=== PATIENT | female | born 1995 | race Caucasian/White ===

== ENCOUNTER → 2018-06-30 11:31 | Outpatient (CLI) | payer BC, SELFPAY ==
[2018-06-30 17:05] LABS: HCG Qualitative, Serum Negative (Negative)
== END ==
PROVIDERS: Visit Provider Surgery
DX: Z01.818 Encounter for other preprocedural examination (principal)
CPT/HCPCS: 36415; 84703

== ENCOUNTER → 2018-08-19 15:15 | Outpatient (POV) | payer BC, SELFPAY | PROVIDERS: Visit Provider Dermatology | DX: Z00.00 Encounter for general adult medical examination without abnormal findings (principal) ==

== ENCOUNTER → 2020-04-15 08:52 | Outpatient (CLI) | payer BC, SELFPAY ==
--- NOTE | 2020-04-15 08:58 | US_ITS ---
PROCEDURE: US ABDOMEN LIMITED CLINICAL INDICATION: EPIGASTRIC PAIN COMPARISON: No exams were available for comparison FINDINGS: PANCREAS: Unremarkable. No obvious mass or abnormal fluid collection. No ductal dilatation LIVER: No focal liver lesions demonstrated. Homogeneous echogenicity. No intrahepatic biliary ductal dilatation evident. There is appropriate direction of blood flow within a non dilated portal vein RIGHT KIDNEY: Unremarkable. Normal size and echogenicity. No hydronephrosis GALLBLADDER: No gallstones are apparent. No gallbladder wall thickening, pericholecystic fluid, or biliary dilatation. There is a small polyp present measuring 4 mm. Common bile duct is normal at 4 mm. IMPRESSION: Small gallbladder wall polyp otherwise negative right upper quadrant ultrasound. Dictated by: Herminio Deleon MD 04/15/2020 16:22 Herminio Deleon MD in [place] 04/15/2020 16:22
--- NOTE | 2020-04-15 08:59 | FL_ITS ---
PROCEDURE: FL UPPER GI W AIR CLINICAL INDICATION: EPIGASTRIC PAIN COMPARISON: No exams were available for comparison TECHNIQUE: FLUOROSCOPY TIME : 1 minutes 53 seconds FINDINGS: The esophagus, stomach, and duodenum have an unremarkable appearance.There is no evidence of hiatal hernia. The stomach is well distended with barium and air and no ulcer or mass evident. No mucosal abnormalities apparent. There is normal peristalsis. The duodenal C-loop and proximal small bowel appear radiographically normal.. IMPRESSION: Normal upper GI series Dictated by: Dr. Brandon Salcedo MD 04/15/2020 12:34 Dr. Brandon Salcedo MD in [place] 04/15/2020 12:34
== END ==
PROVIDERS: PCP Family Medicine; Visit Provider Family Medicine
DX: R10.13 Epigastric pain (principal)
CPT/HCPCS: 74246; 76705

== ENCOUNTER 2020-05-27 16:52 | Emergency (ER) | payer BC, SELFPAY ==
[2020-05-27 16:59] VITALS: BP 138/90; PULSE 89; RESP 18; TEMP 36.7; O2SAT 99; BMI 24.1
--- NOTE | 2020-05-27 17:16 | HMH.EDUTC ---
[facility] [place] Disposition Clinical Impression: Exposure to COVID-19 virus Disposition: Home, Self-Care Condition on Discharge: Good Instructions: Preventing the Spread of Coronavirus Discharge Instructions Additional Instructions: Drink plenty of fluids. Take tylenol for pain or fever. Follow up with your regular doctor. GO TO THE ER FOR ANY WORSENING SYMPTOMS Referrals: Skinny Rivas MD [Primary Care Provider] - Forms: Work/School Release Time of Disposition: 17:24 Medical Decision Making - Medical Records Medical records reviewed: No: I reviewed the patient's medical records. - Иван Inquiry Pt receiving controlled substance: No Vital Signs: 05/27/20 16:59 05/27/20 17:29 Temperature 98.0 F 98.0 F Temperature Source Oral Pulse Rate 89 Pulse Rate [Radial] 89 Respiratory Rate 18 18 Blood Pressure 138/90 Blood Pressure [Right Arm] 138/90 Blood Pressure Mean [Right Arm] 106 Blood Pressure Source [Right Arm] Automatic Cuff Blood Pressure Position [Right Arm] Sitting 02 Sat by Pulse Oximetry 99 Oxygen Delivery Method Room Air [facility] [place] HPI - General Stated complaint: covid exposure Time Seen by Provider: 05/27/20 17:16 Mode of Arrival: Ambulatory Source of Information: Patient Limitations: No Limitations Description of Symptoms (Recalled from Triage Doc. by RN): covid exposure. no symptoms HEENT Symptoms (Recalled from RN notes): No Resp Symptoms (Recalled from RN notes): No Skin Symptoms (Recalled from RN notes): No MS Symptoms (Recalled from RN notes): No Functional Status (Recalled from RN notes): wnl - History of Present Illness Provider Complaint: She is here needing to be tested for covid. Her boyfriend tested positive yesteday. She denies any symptoms at this time. - Related Data Previous Rx's Medication Instructions Recorded levonorgestrel-ethinyl estradiol 1 tab PO DAILY #28 tab 10/20/19 0.1 mg-20 mcg tablet Allergies Allergy/AdvReac Type Severity Reaction Status Date / Time clindamycin [From Cleocin] Allergy Intermediate esophagitis Verified 01/11/20 13:49 - Worker's Comp Is this a Worker's Comp case?: No [facility] History - Hepatitis A Screen Drug use history?: No High risk sexual behaviors?: No History of sexually transmitted infection?: No Currently employed?: No Childcare worker?: No Do you have indoor plumbing?: Yes Do you have electricity?: Yes Attestation statement:: This patient has been screened for Hepatitis A risk factors. I have reviewed the patient's past medical history: Yes Medical History: Denies:: Cancer, Diabetes Mellitus Type 1, Diabetes Mellitus Type 2, Internal Pacemaker, MRSA, Seizures Other Medical History: Reports: Blood Transfusion Reaction Comment: S-I joint injury from cheerleading--unable to compete now--uses back brace. Corpus luteum cyst. 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 CRYOSURGERY Laterality Cases: Bilateral: Tonsillectomy Other Surgeries: Yes: Other. No: Pacemaker Amputation: No Fractures: No Comment: T & A 2004 - Social History Smoking Status: Never smoker Alcohol Intake: never Alcohol Intake Frequency:: other Substance Use Type: denies use Occupational Status: employed Housing: house Household Members: other Family Hx:: No significant family history ROS Obtained: Yes All systems reviewed & no additional complaints - Constitutional Constitutional: Reports system reviewed and no additional complaints, except as docu - Eyes Eyes: Reports system reviewed and no additional complaints, except as docu - ENT Ears, Nose, Mouth, and Throat: Reports system reviewed and no additional complaints, except as docu - Cardiovascular Cardiovascular: Reports system reviewed and no additional complaints, except as docu - Respiratory Respiratory: Yes system reviewed and no additional complaints, except as docu - Gastrointestinal Gastrointestingal: Reports: system reviewed and no additional complaints, except as do
[2020-05-27 17:29] VITALS: BP 138/90; PULSE 89; RESP 18; TEMP 36.7
== END 2020-05-27 17:29 | disposition home or self-care (01) ==
PROVIDERS: Emergency Provider Nurse Practitioner Family; PCP Family Medicine
DX: Z20.828 Contact with and (suspected) exposure to other viral communicable diseases (principal)
CPT/HCPCS: 99201; U0003

== ENCOUNTER 2020-06-08 12:39 | Emergency (ER) | payer BC, SELFPAY ==
[2020-06-08 12:52] VITALS: BP 126/84; PULSE 87; RESP 18; TEMP 36.6; O2SAT 98; BMI 23.3
--- NOTE | 2020-06-08 13:07 | HMH.EDUTC ---
[facility] [place] Clinical Impression: COVID-19 Disposition: Home, Self-Care Condition on Discharge: Good Instructions: Preventing the Spread of Coronavirus Discharge Instructions Additional Instructions: Drink plenty of fluids. Take tylenol for pain or fever. Follow up with your regular doctor. GO TO THE ER FOR ANY WORSENING SYMPTOMS Referrals: Skinny Rivas MD [Primary Care Provider] - Time of Disposition: 13:12 Medical Decision Making - Medical Records Medical records reviewed: No: I reviewed the patient's medical records. - Иван Inquiry Pt receiving controlled substance: No Vital Signs: 06/08/20 12:52 06/08/20 13:15 Temperature 97.8 F 97.8 F Temperature Source Oral Oral Pulse Rate 87 Pulse Rate [Radial] 87 Respiratory Rate 18 18 Blood Pressure 126/84 Blood Pressure [Right Arm] 126/84 Blood Pressure Mean [Right Arm] 98 Blood Pressure Source Automatic Cuff Blood Pressure Source [Right Arm] Automatic Cuff Blood Pressure Position Sitting Blood Pressure Position [Right Arm] Sitting 02 Sat by Pulse Oximetry 98 Oxygen Delivery Method Room Air Room Air - Lab Data Lab Results 06/08/20 12:50: SARS-CoV-2 (PCR) Positive [facility] [place] - General Stated complaint: repeat covid test Time Seen by Provider: 06/08/20 13:07 Mode of Arrival: Ambulatory Source of Information: Patient Limitations: No Limitations Description of Symptoms (Recalled from Triage Doc. by RN): tested positive last needs retest for work. HEENT Symptoms (Recalled from RN notes): No Resp Symptoms (Recalled from RN notes): No Skin Symptoms (Recalled from RN notes): No MS Symptoms (Recalled from RN notes): No Functional Status (Recalled from RN notes): wnl - History of Present Illness Provider Complaint: He needs to be retested for covid for his work - Related Data Previous Rx's Medication Instructions Recorded levonorgestrel-ethinyl estradiol 1 tab PO DAILY #28 tab 10/20/19 0.1 mg-20 mcg tablet Allergies Allergy/AdvReac Type Severity Reaction Status Date / Time clindamycin [From Cleocin] Allergy Intermediate esophagitis Verified 01/11/20 13:49 - Worker's Comp Is this a Worker's Comp case?: No [facility] History - Hepatitis A Screen Drug use history?: No High risk sexual behaviors?: No History of sexually transmitted infection?: No Currently employed?: No Childcare worker?: No Do you have indoor plumbing?: Yes Do you have electricity?: Yes Attestation statement:: This patient has been screened for Hepatitis A risk factors. I have reviewed the patient's past medical history: Yes Medical History: Denies:: Cancer, Diabetes Mellitus Type 1, Diabetes Mellitus Type 2, Internal Pacemaker, MRSA, Seizures Other Medical History: Reports: Blood Transfusion Reaction Comment: S-I joint injury from cheerleading--unable to compete now--uses back brace. Corpus luteum cyst. 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 CRYOSURGERY Laterality Cases: Bilateral: Tonsillectomy Other Surgeries: Yes: Other. No: Pacemaker Amputation: No Fractures: No Comment: T & A 2004 - Social History Smoking Status: Never smoker Alcohol Intake: never Alcohol Intake Frequency:: other Substance Use Type: denies use Occupational Status: employed Housing: house Household Members: other Family Hx:: No significant family history ROS Obtained: Yes All systems reviewed & no additional complaints - Constitutional Constitutional: Reports system reviewed and no additional complaints, except as docu - Eyes Eyes: Reports system reviewed and no additional complaints, except as docu - ENT Ears, Nose, Mouth, and Throat: Reports system reviewed and no additional complaints, except as docu - Cardiovascular Cardiovascular: Reports system reviewed and no additional complaints, except as docu - Respiratory Respiratory: Yes system reviewed and no additional complaints, except as docu - Gastrointestinal Gastrointestingal: R
[2020-06-08 13:15] VITALS: BP 126/84; PULSE 87; RESP 18; TEMP 36.6; O2SAT 98
[2020-06-09 14:54] LABS: Covid-19 Nasal PCR Sendout Lex POSITIVE
--- NOTE | 2020-06-09 14:58 | PC.NURSE ---
PATIENT NOTIFIED OF A SECOND POSITIVE COVID TEST
== END 2020-06-08 13:16 | disposition home or self-care (01) ==
PROVIDERS: Emergency Provider Nurse Practitioner Family; PCP Family Medicine
DX: Z02.89 Encounter for other administrative examinations (principal); U07.1 COVID-19; Z86.19 Personal history of other infectious and parasitic diseases
CPT/HCPCS: 99201; U0004

== ENCOUNTER 2020-06-13 14:33 | Emergency (ER) | payer BC, SELFPAY ==
[2020-06-13 15:15] VITALS: BP 133/81; PULSE 71; RESP 20; TEMP 37.2; O2SAT 100; BMI 22.7
--- NOTE | 2020-06-13 15:36 | HMH.EDUTC ---
[facility] [place] Disposition Clinical Impression: COVID-19 Disposition: Home, Self-Care Condition on Discharge: Good Instructions: Preventing the Spread of Coronavirus Discharge Instructions Additional Instructions: Drink plenty of fluids. Take tylenol for pain or fever. Follow up with your regular doctor. GO TO THE ER FOR ANY WORSENING SYMPTOMS Referrals: Skinny Rivas MD [Primary Care Provider] - Time of Disposition: 15:37 Medical Decision Making - Medical Records Medical records reviewed: No: I reviewed the patient's medical records. - Иван Inquiry Pt receiving controlled substance: No Vital Signs: 06/13/20 15:15 06/13/20 15:38 Temperature 99.0 F 99.0 F Temperature Source Oral Pulse Rate 71 Pulse Rate [Right Brachial] 71 Respiratory Rate 20 20 Blood Pressure 133/81 Blood Pressure [Right Arm] 133/81 Blood Pressure Mean [Right Arm] 98 Blood Pressure Source [Right Arm] Automatic Cuff Blood Pressure Position [Right Arm] Sitting 02 Sat by Pulse Oximetry 100 Oxygen Delivery Method Room Air [facility] [place] HPI - General Stated complaint: covid test Time Seen by Provider: 06/13/20 15:36 Mode of Arrival: Ambulatory Source of Information: Patient Limitations: No Limitations Description of Symptoms (Recalled from Triage Doc. by RN): PATIENT REQUESTING COVID TEST. SHE IS CURRENTLY POSITIVE AND NEEDING A NEGATIVE RESULT TO RETURN TO WORK. DENIES ANY SYMPTOMS AT THIS TIME HEENT Symptoms (Recalled from RN notes): No Resp Symptoms (Recalled from RN notes): No Skin Symptoms (Recalled from RN notes): No MS Symptoms (Recalled from RN notes): No Functional Status (Recalled from RN notes): WNL - History of Present Illness Provider Complaint: She has been positive for covid. She has not had any symptoms in several days. She needs a negative test so she can go back to work. - Related Data Previous Rx's Medication Instructions Recorded levonorgestrel-ethinyl estradiol 1 tab PO DAILY #28 tab 10/20/19 0.1 mg-20 mcg tablet Allergies Allergy/AdvReac Type Severity Reaction Status Date / Time clindamycin [From Cleocin] Allergy Intermediate esophagitis Verified 01/11/20 13:49 - Worker's Comp Is this a Worker's Comp case?: No [facility] History - Hepatitis A Screen Drug use history?: No High risk sexual behaviors?: No History of sexually transmitted infection?: No Currently employed?: No Childcare worker?: No Do you have indoor plumbing?: Yes Do you have electricity?: Yes Attestation statement:: This patient has been screened for Hepatitis A risk factors. I have reviewed the patient's past medical history: Yes Medical History: Denies:: Cancer, Diabetes Mellitus Type 1, Diabetes Mellitus Type 2, Internal Pacemaker, MRSA, Seizures Other Medical History: Reports: Blood Transfusion Reaction Comment: S-I joint injury from cheerleading--unable to compete now--uses back brace. Corpus luteum cyst. 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 CRYOSURGERY Laterality Cases: Bilateral: Tonsillectomy Other Surgeries: Yes: Other. No: Pacemaker Amputation: No Fractures: No Comment: T & A 2004 - Social History Smoking Status: Never smoker Alcohol Intake: never Alcohol Intake Frequency:: other Substance Use Type: denies use Occupational Status: other Housing: house Household Members: other Family Hx:: No significant family history ROS Obtained: Yes All systems reviewed & no additional complaints - Constitutional Constitutional: Reports system reviewed and no additional complaints, except as docu - Eyes Eyes: Reports system reviewed and no additional complaints, except as docu - ENT Ears, Nose, Mouth, and Throat: Reports system reviewed and no additional complaints, except as docu - Cardiovascular Cardiovascular: Reports system reviewed and no additional complaints, except as docu - Respiratory Respiratory: Yes system reviewed and no additional complaints, except as docu - Gastrointestinal Gastroin
[2020-06-13 15:38] VITALS: BP 133/81; PULSE 71; RESP 20; TEMP 37.2; O2SAT 100
--- NOTE | 2020-06-13 19:40 | PC.NURSE ---
PATIENT NOTIFIED OF POSITIVE COVID TEST AT THIS TIME
== END 2020-06-13 15:40 | disposition home or self-care (01) ==
PROVIDERS: Emergency Provider Nurse Practitioner Family; PCP Family Medicine
DX: U07.1 COVID-19 (principal)
CPT/HCPCS: 99201; U0003

== ENCOUNTER 2020-06-16 12:01 | Emergency (ER) | payer BC, SELFPAY ==
[2020-06-16 12:56] VITALS: BP 129/92; PULSE 78; RESP 19; TEMP 36.9; O2SAT 100; BMI 21.9
--- NOTE | 2020-06-16 13:05 | HMH.EDUTC ---
[facility] [place] Disposition Clinical Impression: Encounter for laboratory testing for COVID-19 virus Disposition: Home, Self-Care Condition on Discharge: Good Instructions: Preventing the Spread of Coronavirus Discharge Instructions Additional Instructions: *Monitor Temp, Over the counter Motrin or Tylenol as directed/as needed Tylenol every 4 hours and Motrin every 6 hours (as long as your family doctor has told you that you can take it) for fever or pain. and straight to ER if unable to lower temp less than 101.0 after medication given *Warm salt water gargles may help to soothe the throat *Throat Lozenges *Warm fluids like tea with honey may help to soothe the throat *Sleep elevated *Humidifier/Vaporizer Follow up IMMEDIATELY for new or worsening symptoms or no Noticeable improvement over the next 48-72 hours. 911 for difficulty breathing or swallowing You was tested for today for COVID19 your test result should be back in the next 24-48 hours, you may call to the [facility] later today or tomorrow to see if your test results are back and the result [phone] [facility] hours are 9am-9pm You was given a handout with instructions for Self Quarantine and Self isolation for while you wait on test results and what to do if they are positive If you are positive the Health Dept will be contacting you also Referrals: Skinny Rivas MD [Primary Care Provider] - As needed Forms: Work/School Release Time of Disposition: 13:07 Medical Decision Making - Иван Inquiry Pt receiving controlled substance: No Иван was queried for this patient: No Vital Signs: 06/16/20 12:56 Temperature 98.4 F Temperature Source Oral Pulse Rate [Radial] 78 Respiratory Rate 19 Blood Pressure [Right Arm] 129/92 H Blood Pressure Mean [Right Arm] 104 Blood Pressure Source [Right Arm] Automatic Cuff Blood Pressure Position [Right Arm] Sitting 02 Sat by Pulse Oximetry 100 Oxygen Delivery Method Room Air Orders (Tests/Meds): ORDERS Category Date Time Status Covid-19 Nasal PCR Sendout [facility] 06/16/20 12:44 Ordered [facility] [place] HPI - General Stated complaint: covid test Time Seen by Provider: 06/16/20 13:06 Mode of Arrival: Ambulatory Source of Information: Patient Limitations: No Limitations Description of Symptoms (Recalled from Triage Doc. by RN): covid test HEENT Symptoms (Recalled from RN notes): No Resp Symptoms (Recalled from RN notes): No Skin Symptoms (Recalled from RN notes): No MS Symptoms (Recalled from RN notes): No Functional Status (Recalled from RN notes): wnl - History of Present Illness Provider Complaint: Patient states that she has tested positive for COVID for the last 21 days States that she is no longer having symptoms but needs to get tested to go back to work - Related Data Previous Rx's Medication Instructions Recorded levonorgestrel-ethinyl estradiol 1 tab PO DAILY #28 tab 10/20/19 0.1 mg-20 mcg tablet Allergies Allergy/AdvReac Type Severity Reaction Status Date / Time clindamycin [From Cleocin] Allergy Intermediate esophagitis Verified 01/11/20 13:49 - Worker's Comp Is this a Worker's Comp case?: No [facility] History - Hepatitis A Screen Drug use history?: No High risk sexual behaviors?: No History of sexually transmitted infection?: No Currently employed?: No Childcare worker?: No Do you have indoor plumbing?: Yes Do you have electricity?: Yes Attestation statement:: This patient has been screened for Hepatitis A risk factors. I have reviewed the patient's past medical history: Yes Medical History: Denies:: Cancer, Diabetes Mellitus Type 1, Diabetes Mellitus Type 2, Internal Pacemaker, MRSA, Seizures Other Medical History: Reports: Blood Transfusion Reaction Comment: S-I joint injury from cheerleading--unable to compete now--uses back brace. Corpus luteum cyst. 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 CRYOSURGERY Laterality Cases: Bilateral: Tonsillectomy Other Surgeries: Yes: Other. No: Pacemak
[2020-06-16 13:31] VITALS: BP 129/92; PULSE 78; RESP 19; TEMP 36.9; O2SAT 100
[2020-06-17 09:10] LABS: Covid-19 Nasal PCR Sendout Lex Positive
== END 2020-06-16 13:32 | disposition home or self-care (01) ==
PROVIDERS: Emergency Provider Nurse Practitioner; PCP Family Medicine
DX: U07.1 COVID-19 (principal)
CPT/HCPCS: 99201; U0004

== ENCOUNTER → 2020-06-18 14:00 | Outpatient (CLI) | payer BC, SELFPAY ==
[2020-06-18 15:29] LABS: Coronavirus 19 IgG Antibody Positive (Negative); Coronavirus 19 IgM Antibody Negative (Negative)
== END ==
PROVIDERS: PCP Family Medicine; Visit Provider Family Medicine
DX: Z01.84 Encounter for antibody response examination (principal)
CPT/HCPCS: 36415; 86328

== ENCOUNTER → 2021-05-10 17:10 | Outpatient (CLI) | payer OTHER, SELFPAY | PROVIDERS: PCP Family Medicine; Visit Provider Nurse Practitioner | DX: Z20.822 Contact with and (suspected) exposure to COVID-19 (principal) | CPT/HCPCS: C9803; U0003; U0005 ==

== ENCOUNTER → 2023-01-21 11:20 | Outpatient (CLI) | payer OTHER, SELFPAY ==
[2023-01-22 10:15] LABS: Progesterone 9.5 ng/mL (.)
== END ==
PROVIDERS: PCP Family Medicine; Visit Provider Obstetrics & Gynecology
DX: N92.6 Irregular menstruation, unspecified (principal); Z32.00 Encounter for pregnancy test, result unknown
CPT/HCPCS: 84144; 84702

== ENCOUNTER → 2023-01-28 17:49 | Outpatient (CLI) | payer OTHER, SELFPAY | PROVIDERS: Visit Provider Obstetrics & Gynecology | DX: Z34.91 Encounter for supervision of normal pregnancy, unspecified, first trimester (principal); Z3A.09 9 weeks gestation of pregnancy | CPT/HCPCS: 87086 ==

== ENCOUNTER → 2023-02-19 12:26 | Outpatient (CLI) | payer OTHER, SELFPAY ==
[2023-02-19 13:01] LABS: Basophils % 0.4 % (0.1-2.0); Eosinophils # 0.3 K/mm3 (0.0-0.4); Hematocrit 37.9 % (37.0-47.0); Hemoglobin 12.5 g/dL (12.2-16.2); Lymphocytes # 1.8 K/mm3 (0.7-4.5); Lymphocytes % 19.2 % (10-50); Mean Corpuscular HGB Conc 33.1 g/dL (31.8-35.4); Mean Corpuscular Hemoglobin 28.5 pg (27.0-31.2); Mean Corpuscular Volume 86.1 fl (81-99); Monocytes # 0.3 K/mm3 (0.1-1.0); Monocytes % 2.9 % (1.7-9.3); Neutrophils # 6.8 K/mm3 (1.8-7.8); Neutrophils % 74.6 % (37.0-80.0); Platelet Count 231 K/mm3 (142-424); Red Cell Distribution Width 12.8 % (11.5-17.5); White Blood Count 9.1 K/mm3 (4.8-10.8)
[2023-02-20 12:09] LABS: HIV Screen 4th Generation wRfx Non Reactive (Non Reactive); HSV 1 IgG, Type Spec <0.91 index (0.00-0.90); HSV 2 IgG, Type Spec <0.91 index (0.00-0.90)
[2023-02-20 13:15] LABS: Rubella Antibodies, IgG <0.90 index (Immune >0.99)
[2023-03-10 13:26] LABS: Hepatitis B Surface Antigen Negative; Hepatitis C Antibody Non Reactive
[2023-03-10 13:27] LABS: Rapid Plasma Reagin Ab Titer Non Reactive
== END ==
PROVIDERS: PCP Family Medicine; Visit Provider Obstetrics & Gynecology
DX: Z34.91 Encounter for supervision of normal pregnancy, unspecified, first trimester (principal); Z3A.13 13 weeks gestation of pregnancy
CPT/HCPCS: 36415; 85025; 86593; 86695; 86703; 86762; 86790; 86850; 87340; 87380; G0432

== ENCOUNTER → 2023-04-17 14:30 | Outpatient (CLI) | payer OTHER, SELFPAY ==
--- NOTE | 2023-04-17 14:30 | US_ITS ---
PROCEDURE: US OB /MATERNAL DETAIL CLINICAL INDICATION: OB complete COMPARISON: No exams were available for comparison FINDINGS: Transabdominal sonographic images of the pelvis were obtained. Single viable intrauterine gestation. Breech position. Placenta: Posteriorplacenta grade 1. There is average amount fluid. The cervix appears satisfactory. Closed and measuring 2.44 cm in length. Complete survey performed on the submitted images as in PACS. Active fetus. Three-vessel cord with satisfactory umbilical cord insertion. 4- chamber heart noted. Aortic arch, LVOT, RVOT are normal. There is a 2.4 mm intracardiac echogenic focus. Technologist noted an arrhythmia. Survey of brain & ventricles Unremarkable. Thalamus, Choroid plexus, cerebellum, cisterna magna appear normal. Face and neck survey unremarkable. Nose, lips, profile appear normal. The nasion was not well visualized. Diaphragm and chest views unremarkable. Abdomen: Both kidneys noted. Bilateral renal pelvis dilation is noted. Measurements are 4.9 mm and 5.9 mm. Stomach and bladder noted and satisfactory. Spine: Survey of the spine satisfactory with no anomalies identified nor imaged. Upper, thoracic and lower spine appear normal. Both arms and legs noted. Amniotic Fluid: Adequate. Measurements: Average ultrasound age 20weeks 4days. Gestational Age 20weeks 4days Estimated due date by ultrasound age 0208/31/2023. Estimated weight 362g BPD = 20weeks 2days HC = 20weeks 2days AC = 20weeks 2days FL = 21weeks 1day Growth Percentile= 53 Heart Rate = 127bpm Cerebellum = 20weeks Humerus = 21weeks 5days HC/AC is 1.18 FL/BPD is 0.74 FL/AC is 0.23 IMPRESSION: 1. Viable fetus in the breech presentation with posterior placenta grade 1. 2. Anatomical scan was normal. 3. There was a small intracardiac echogenic foci. 4. The technologist noted an arrhythmia. 5. Bilateral renal pelvis dilation. 5.9 mm and 4.9 mm. 6. In nasion was not well visualized. Dictated by: Etienne Kelly MD 04/18/2023 20:50 Etienne Kelly MD in [place] 04/18/2023 20:50
== END ==
PROVIDERS: PCP Family Medicine; Visit Provider Obstetrics & Gynecology
DX: Z34.92 Encounter for supervision of normal pregnancy, unspecified, second trimester (principal); Z3A.20 20 weeks gestation of pregnancy
CPT/HCPCS: 76811

== ENCOUNTER → 2023-06-12 10:02 | Outpatient (CLI) | payer OTHER, SELFPAY ==
[2023-06-12 10:29] LABS: Basophils % 0.3 % (0.1-2.0); Eosinophils # 0.1 K/mm3 (0.0-0.4); Hematocrit 33.4 % (37.0-47.0); Hemoglobin 11.6 g/dL (12.2-16.2); Lymphocytes # 1.9 K/mm3 (0.7-4.5); Lymphocytes % 15.3 % (10-50); Mean Corpuscular HGB Conc 34.8 g/dL (31.8-35.4); Mean Corpuscular Volume 86.3 fl (81-99); Mean Platelet Volume 8.5 fl (7.4-10.4); Monocytes # 0.6 K/mm3 (0.1-1.0); Monocytes % 5.2 % (1.7-9.3); Neutrophils # 9.4 K/mm3 (1.8-7.8); Neutrophils % 78.2 % (37.0-80.0); Platelet Count 225 K/mm3 (142-424); Red Blood Count 3.87 M/mm3 (4.20-5.40); Red Cell Distribution Width 12.8 % (11.5-17.5); White Blood Count 12.1 K/mm3 (4.8-10.8)
[2023-06-12 10:48] LABS: Glucose,Fasting 85 mg/dl (74-100)
[2023-06-12 12:59] LABS: Glucose 1 Hour 118 mg/dL (74-100)
== END ==
PROVIDERS: PCP Family Medicine; Visit Provider Obstetrics & Gynecology
DX: Z34.92 Encounter for supervision of normal pregnancy, unspecified, second trimester (principal); Z3A.25 25 weeks gestation of pregnancy
CPT/HCPCS: 36415; 82951; 85025

== ENCOUNTER → 2023-07-08 23:53 | Outpatient (CLI) | payer OTHER, SELFPAY ==
[2023-07-08 18:10] LABS: Adenovirus,PCR Not Detected (NotDetected); Coronavirus 19, PCR Not Detected (NotDetected); Coronavirus 229E Not Detected (NotDetected); Coronavirus OC43 Not Detected (NotDetected); Coronovirus HKU1,PCR Not Detected (NotDetected); Human Metapneumovirus Not Detected (NotDetected); Influenza A, PCR Not Detected (NotDetected); Influenza AH1, 2009 Not Detected (NotDetected); Influenza AH1, PCR Not Detected (NotDetected); Influenza AH3,PCR Not Detected (NotDetected); Influenza B, PCR Not Detected (NotDetected); Parainfluenza 1, PCR Not Detected (NotDetected); Parainfluenza 2, PCR Not Detected (NotDetected); Parainfluenza 3, PCR Not Detected (NotDetected); Parainfluenza 4, PCR Not Detected (NotDetected); Respiratory Syncytial Virus Not Detected (NotDetected); Rhinovirus/Enterovirus Not Detected (NotDetected)
[2023-07-08 20:55] LABS: Coronavirus NL63 Detected (NotDetected)
== END ==
PROVIDERS: PCP Family Medicine; Visit Provider Student in an Organized Health Care Education/Training Program
DX: R05.9 Cough, unspecified (principal); B34.2 Coronavirus infection, unspecified
CPT/HCPCS: 87632; 87635

== ENCOUNTER 2023-07-30 14:09 | Outpatient (CLI) | payer OTHER, SELFPAY ==
[2023-07-30 14:20] VITALS: BMI 27.2
[2023-07-30 14:35] LABS: Microscopic, Urine URINE MICROSCOPIC (MICROSCOPIC)
[2023-07-30 14:37] VITALS: BP 123/80; PULSE 91; RESP 20; TEMP 36.7; O2SAT 96; BMI 29.8
[2023-07-30 14:42] LABS: Appearance,Urine CLEAR (Clear); Bilirubin,Urine Negative (Negative); Blood, Urine Negative (Negative); Color,Urine YELLOW (Yellow); Glucose,Urine (UA) Negative (Negative); Ketones,Urine TRACE (Negative); Leukocyte Esterase,Urine Negative (Negative); Nitrate,Urine Negative (Negative); Protein,Urine Negative (Negative); Urobilinogen,Urine 0.2 EU/dl (0.2)
[2023-07-30] MEDS: LACTATED RINGERS 1000ML 1,000 ML 999 ML IV (15:00)
[2023-07-30 15:02] LABS: Amorphous Sediment,Urine 1+ /lpf; Mucus,Urine 1+ /lpf
== END 2023-07-30 16:10 | disposition home or self-care (01) ==
LOC: OBOUT 14:13 → OB 14:13
PROVIDERS: PCP Family Medicine; Visit Provider Obstetrics & Gynecology
DX: Z34.93 Encounter for supervision of normal pregnancy, unspecified, third trimester (principal); Z3A.35 35 weeks gestation of pregnancy
CPT/HCPCS: 59025; 81001; 96365; G0463

== ENCOUNTER 2023-08-05 16:52 | Outpatient (CLI) | payer OTHER, SELFPAY | END 2023-08-05 23:59 | LOC: LAB.DROPOF 16:52 | PROVIDERS: PCP Obstetrics & Gynecology; Visit Provider Obstetrics & Gynecology | DX: Z34.93 Encounter for supervision of normal pregnancy, unspecified, third trimester (principal); Z3A.36 36 weeks gestation of pregnancy | CPT/HCPCS: 86403 ==

== ENCOUNTER 2023-08-19 12:51 | Outpatient (CLI) | payer OTHER, SELFPAY ==
[2023-08-19 11:15] LABS: Fetal Membrane Rupture (Rapid) Positive (Negative)
== END 2023-08-19 23:59 ==
LOC: LAB.DROPOF 08-22 12:51
PROVIDERS: PCP Obstetrics & Gynecology; Visit Provider Obstetrics & Gynecology
DX: Z34.93 Encounter for supervision of normal pregnancy, unspecified, third trimester (principal)
CPT/HCPCS: 84112

== ENCOUNTER 2023-08-19 13:37 | Inpatient (IN) | payer OTHER, SELFPAY ==
[2023-08-19 12:53] VITALS: BMI 27.7
[2023-08-19 13:23] LABS: MANUAL DIFFERENTIAL MANUAL DIFFERENTIAL (MANUAL DIFF)
[2023-08-19 13:26] LABS: Basophils % 0.3 % (0.1-2.0); Eosinophils # 0.1 K/mm3 (0.0-0.4); Eosinophils % 0.6 % (0.1-12.0); Hematocrit 32.7 % (37.0-47.0); Hemoglobin 11.1 g/dL (12.2-16.2); Lymphocytes % 15.6 % (10-50); Mean Corpuscular HGB Conc 34.1 g/dL (31.8-35.4); Mean Corpuscular Hemoglobin 26.9 pg (27.0-31.2); Mean Corpuscular Volume 78.9 fl (81-99); Mean Platelet Volume 8.7 fl (7.4-10.4); Monocytes # 0.6 K/mm3 (0.1-1.0); Monocytes % 4.5 % (1.7-9.3); Neutrophils # 10.3 K/mm3 (1.8-7.8); Neutrophils % 79.1 % (37.0-80.0); Platelet Count 244 K/mm3 (142-424); Red Blood Count 4.15 M/mm3 (4.20-5.40); Red Cell Distribution Width 13.5 % (11.5-17.5)
--- NOTE | 2023-08-19 13:42 | HMH.PHAINT1 ---
Pharmacy Intervention Comments: MEDICATION RECONCILIATION COMPLETED ON PATIENT USING EXTERNAL FILL HISTORY FROM PHARMACY. -DAVID CISNEROS, KARINAD
[2023-08-19 14:15] LABS: Microscopic, Urine URINE MICROSCOPIC (MICROSCOPIC)
[2023-08-19] MEDS: AMPICILLIN SODIUM 2 GM in 0.9 % SODIUM CHLORIDE 100 ML IV (14:42)
[2023-08-19 14:44] LABS: Appearance,Urine CLEAR (Clear); Bilirubin,Urine Negative (Negative); Blood, Urine 3+ (Negative); Color,Urine YELLOW (Yellow); Glucose,Urine (UA) Negative (Negative); Ketones,Urine Negative (Negative); Leukocyte Esterase,Urine Negative (Negative); Nitrate,Urine Negative (Negative); Protein,Urine TRACE (Negative); Urobilinogen,Urine 0.2 EU/dl (0.2)
[2023-08-19 15:11] LABS: Bacteria,Urine 3+ /lpf
[2023-08-19 15:13] LABS: Hypochromasia 1+; Lymphocytes % 12 % (10-50); Microcytosis 1+; Monocytes % 3 % (2-9); Neutrophils % 85 % (42-76); Platelet Estimate Normal; Total Cells Counted 100
[2023-08-19] MEDS: miSOPROStol 100MCG TABLET 25 MCG PO (16:15)
--- NOTE | 2023-08-19 16:36 | EXP.HP ---
History of Present Illness *Admission Date: 08/19/23 *Reason for visit:: SROM *History of present illness: She is a 28-year-old 1 para 0 at 38+1 weeks gestational age. She was seen in the office today and complained of a wet feeling in her underwear. She says that this has been going on for about a week or so. AmniSure was positive. As result of that she is admitted for delivery. A positive blood Rubella nonimmune Group B strep negative PFSH PFSH Disclaimer: The information contained in this section may have been updated after the patient was seen, as this information can be updated by other users. Medical History Dilation of renal pelvis of fetus cardiac echogenic focus, antepartum Heartburn during PROM (premature rupture of membranes) Rubella non-immune status, antepartum Surgical History No significant past surgical history Family History Diabetes Cancer Thyroid disorder Social History Smoking Status: Never smoker alcohol intake: never substance use type: denies use current occupational status: employed Travel in the last 8 weeks: None household members: other housing: house current occupational exposures/hazards: No caffeine: Yes Review of Systems Review of Systems Review of systems:: pertinent systems reviewed and negative unless documented below Meds Home Medications and Allergies Home Medications Medication Instructions Recorded Confirmed Type docosahexaenoic acid 200 mg 200 mg PO DAILY Supplement 08/19/23 08/19/23 History capsule ( DHA) famotidine 20 mg tablet (Pepcid) 20 mg PO BID Acid Reflux 08/19/23 08/19/23 History New Prescriptions to Start Prescriptions: Allergies Allergy/AdvReac Type Severity Reaction Status Date / Time clindamycin [From Cleocin] Allergy Intermediate esophagitis Verified 08/19/23 10:49 Exam Data for Last 24 hours Vital signs and Labs for Last 24 Hours: Laboratory Results - last 24 hr 08/19/23 13:10: WBC 13.0 H, RBC 4.15 L, Hgb 11.1 L, Hct 32.7 L, MCV 78.9 L, MCH 26.9 L, MCHC 34.1, RDW 13.5, Plt Count 244, MPV 8.7, Neut % (Auto) 79.1, Lymph % (Auto) 15.6, [place] % (Auto) 4.5, Eos % (Auto) 0.6, Baso % (Auto) 0.3, Neut # (Auto) 10.3 H, Lymph # (Auto) 2.0, [place] # (Auto) 0.6, Eos # (Auto) 0.1, Baso # (Auto) 0.0, Total Counted 100, Neutrophils % (Manual) 85 H, Lymphocytes % (Manual) 12, Monocytes % (Manual) 3, Platelet Estimate Normal, Hypochromasia 1+, Microcytosis 1+, Blood Type A Positive, Antibody Screen Positive 08/19/23 13:45: Urine Color Yellow, Urine Appearance Clear, Urine pH 8.0, Ur Specific [place] 1.020, Urine Protein Trace, Urine Glucose (UA) Negative, Urine Ketones Negative, Urine Blood 3+, Urine Nitrate Negative, Urine Bilirubin Negative, Urine Urobilinogen 0.2, Ur Leukocyte Esterase Negative, Urine RBC 3-5, Urine WBC 3-5, Ur Squamous Epith Cells 5-10, Urine Bacteria 3+ I & O for Last 24 hours: Intake & Output 08/17/23 08/18/23 08/19/23 08/20/23 11:59 11:59 11:59 11:59 Weight 177 lb Constitutional Constitutional: no acute distress *Routine HEENT Exam Head: Present normocephalic Eye: Present EOMI and PERRL ENT: Present mucous membranes moist *Routine Neck Exam Neck: Present supple; Absent lymphadenopathy *Routine Respiratory Exam Respiratory: Present CTA bilaterally *Routine Cardiovascular Exam Cardiovascular: Present RRR *Routine Abdominal Exam Abdominal: Present soft and normoactive bowel sounds; Absent tenderness *Routine Rectal Exam Rectal:: deferred *Routine Genitalia Exam Genitalia:: deferred *Routine Extremities Exam Extremities: Absent cyanosis, clubbing or edema *Routine Skin Exam Skin: Present warm; Absent rash *Routine Neurological Exam Neurological: Present alert and oriented X3 Assessment and Plan *Assessment and plan (1) PROM (premature rupture of membranes): Status: Acute Qualifiers: PROM onset of labor timing: onset of labor more than 24 hours following rupture PROM gestational age: full term Qualified Code(s): O42.12 - Full-term premature rupture of membranes, onset of labor more than 24 hours following rupture Category: Medical Code(s): O42.90 - Premature rupture of membranes, unspecified as to length of time between rupture and onset of labor, unspecified weeks of gestation (2) Heartburn during : Status: Acute Qualifiers: Trimester: third trimester Qualified Code(s): O26.893 - Other specified related conditions, third trimester; R12 - Heartburn Category: Medical Code(s): O26.899 - Other specified related conditions, unspecified trimester; R12 - Heartburn (3) cardiac echogenic focus, antepartum: Status: Acute Qualifiers: Fetus number: single or unspecified fetus Qualified Code(s): O35.BXX0 - Maternal care for other (suspected) abnormality and damage, cardiac anomalies, not applicable or unspecified Category: Medical Code(s): O35.BXX0 - Maternal care for other (suspected) abnormality and damage, cardiac anomalies, not applicable or unspecified (4) Dilation of renal pelvis of fetus: Status: Acute Category: Medical (5) Rubella non-immune status, antepartum: Status: Acute Category: Medical Code(s): O09.899 - Supervision of other high risk pregnancies, unspecified trimester; Z28.39 - Other underimmunization status Plan She is admitted for delivery since her AmniSure was positive and she has been leaking fluid. Since it has been greater than 24 hours since she thinks she may have started leaking we have started her on IV antibiotics. She will receive Cervidil overnight since her cervix is not favorable. We will plan a vaginal delivery.
[2023-08-19 17:30] LABS: Amphetamine/Metha Screen,Urine Negative ng/ml (<1000); Barbiturates Screen,Urine Negative ng/ml (<200); Benzodiazepines Screen,Urine Negative ng/ml (<200); Cannabinoid Screen,Urine Negative ng/ml (<50); Cocaine Screen,Urine Negative ng/ml (<300); Methadone Screen,Urine Negative ng/ml (<300); Opiate Screen,Urine Negative ng/ml (<300); Phencyclidine Screen,Urine Negative ng/ml (<25)
[2023-08-19] MEDS: AMPICILLIN SODIUM 1 GM in 0.9 % SODIUM CHLORIDE 50 ML IV ×2 (19:18→22:33)
[2023-08-20 00:17] VITALS: BP 116/75; PULSE 100; O2SAT 98; BMI 27.8
[2023-08-20] MEDS: AMPICILLIN SODIUM 1 GM in 0.9 % SODIUM CHLORIDE 50 ML IV ×4 (02:33→14:42)
[2023-08-20] MEDS: LACTATED RINGERS 1000ML 1,000 ML 500 ML IV ×2 (05:24→10:00)
[2023-08-20] MEDS: DEXTROSE 5%-LACTATED RINGERS 1,000 ML 125 ML IV ×2 (05:24→12:46)
[2023-08-20] MEDS: OXYTOCIN/RINGERS LACTATE 30 UNITS/500 ML BAG IV (05:25)
[2023-08-20 07:30] VITALS: BP 103/57; PULSE 71; RESP 16; TEMP 36.9; O2SAT 98
[2023-08-20] MEDS: ONDANSETRON 4MG/2ML VIAL 4 MG IV (11:15)
--- NOTE | 2023-08-20 11:37 | P.PNANES_ITS ---
[facility] Disclaimer: The information contained in this section may have been updated after the patient was seen, as this information can be updated by other users. Medical History Dilation of renal pelvis of fetus cardiac echogenic focus, antepartum Heartburn during PROM (premature rupture of membranes) Rubella non-immune status, antepartum Surgical History No significant past surgical history Family History Other Cancer Diabetes Thyroid disorder Social History Smoking Status: Never smoker alcohol intake: never substance use type: denies use current occupational status: employed Travel in the last 8 weeks: None household members: other housing: house current occupational exposures/hazards: No caffeine: Yes [facility] Anesthesia Checklist Patient Identification Patient Identification: Arm Band Structural Data Admitted From: Inpatient Planned Operative Procedure/s: Labor Epidural Consent for Planned Operative Procedure(s) Verified: Yes Verified Documents: Surgical Consent and History and Physical Additional verifications Anesthesia Reactions: No Hx Blood Transfusions: No Blood Transfusion Reaction: Yes Airway Assessment Dentition: Good Dentition Neurological Assessment Level of Consciousness: Awake, Alert and Appropriate Anesthesia Plan Anesthesia Risk discussed: Yes Anesthesia Plan: Verified ASA Class: II Anesthesia Type: Epidural
--- NOTE | 2023-08-20 11:42 | P.PN_ITS ---
Subjective *Date: 08/20/23 *Time: 11:42 Interval history: She is a 28-year-old 1 para 0 at 38+2 weeks gestational age. AmniSure was positive in the office. This morning contractions were stronger and she was in good spirits. A positive blood- antibody positive (previously negative on 01/2023) Rubella nonimmune Group B strep negative 1hr GTT: 118 NIPT: low risk Bedside ultrasound: Cephalic presentation 07/10/2023 ultrasound was completed at [facility] secondary to an EIF, arrhythmia, and RPD. EFW: 2143 g, 50th percentile, 4 pounds 12 ounces, AC: 78th percentile. Three-vessel cord. Normal placental insertion. Normal fluid. Appropriate anatomy. BPP: 8 out of 8. EIF again noted, mild bilateral pyelectasis again noted. No sign of hydroureter. MFM signed off at that time Exam Data for Last 24 hours Vital signs and Labs for Last 24 Hours: Temp Pulse Resp BP Pulse Ox O2 Del Method 98.4 F 71 16 103/57 L 98 Room Air 08/20/23 07:30 08/20/23 07:30 08/20/23 07:30 08/20/23 07:30 08/20/23 07:30 08/20/23 07:30 Laboratory Results - last 24 hr 08/19/23 13:10: WBC 13.0 H, RBC 4.15 L, Hgb 11.1 L, Hct 32.7 L, MCV 78.9 L, MCH 26.9 L, MCHC 34.1, RDW 13.5, Plt Count 244, MPV 8.7, Neut % (Auto) 79.1, Lymph % (Auto) 15.6, [place] % (Auto) 4.5, Eos % (Auto) 0.6, Baso % (Auto) 0.3, Neut # (Auto) 10.3 H, Lymph # (Auto) 2.0, [place] # (Auto) 0.6, Eos # (Auto) 0.1, Baso # (Auto) 0.0, Total Counted 100, Neutrophils % (Manual) 85 H, Lymphocytes % (Manual) 12, Monocytes % (Manual) 3, Platelet Estimate Normal, Hypochromasia 1+, Microcytosis 1+, Blood Type A Positive, Antibody Screen Positive 08/19/23 13:45: Urine Color Yellow, Urine Appearance Clear, Urine pH 8.0, Ur Specific [place] 1.020, Urine Protein Trace, Urine Glucose (UA) Negative, Urine Ketones Negative, Urine Blood 3+, Urine Nitrate Negative, Urine Bilirubin Negative, Urine Urobilinogen 0.2, Ur Leukocyte Esterase Negative, Urine RBC 3-5, Urine WBC 3-5, Ur Squamous Epith Cells 5-10, Urine Bacteria 3+, Urine Opiates Screen Negative, Urine Methadone Screen Negative, Ur Barbituates Screen Negative, Ur Phencyclidine Scrn Negative, Ur Amphetamines Screen Negative, U Benzodiazepines Scrn Negative, Urine Cocaine Screen Negative, U Marijuana (THC) Screen Negative I & O for Last 24 hours: Intake & Output 08/17/23 08/18/23 08/19/23 08/20/23 23:59 23:59 23:59 23:59 Weight 177 lb 177 lb 0.005 oz Narrative: Exam at approximately 10 AM this mornin/90 with a suspected intact forebag. AROM revealed scant amount of clear fluid. Constitutional Constitutional: no acute distress *Routine HEENT Exam Head: Present normocephalic Eye: Present EOMI and PERRL ENT: Present mucous membranes moist *Routine Neck Exam Neck: Present supple; Absent lymphadenopathy *Routine Respiratory Exam Respiratory: Present CTA bilaterally *Routine Cardiovascular Exam Cardiovascular: Present RRR *Routine Abdominal Exam Abdominal: Present soft and normoactive bowel sounds; Absent tenderness *Routine Extremities Exam Extremities: Absent cyanosis, clubbing or edema *Routine Skin Exam Skin: Present warm; Absent rash *Routine Neurological Exam Neurological: Present alert and oriented X3 Assessment and Plan *Assessment and plan (1) PROM (premature rupture of membranes): Status: Acute Qualifiers: PROM onset of labor timing: onset of labor more than 24 hours following rupture PROM gestational age: full term Qualified Code(s): O42.12 - Full-term premature rupture of membranes, onset of labor more than 24 hours following rupture Category: Medical Code(s): O42.90 - Premature rupture of membranes, unspecified as to length of time between rupture and onset of labor, unspecified weeks of gestation (2) Heartburn during : Status: Acute Qualifiers: Trimester: third trimester Qualified Code(s): O26.893 - Other specified related conditions, third trimester; R12 - Heartburn Category: Medical Code(s): O26.899 - Other specified related conditions, unspecified trimester; R12 - Heartburn (3) cardiac echogenic focus, antepartum: Status: Acute Qualifiers: Fetus number: single or unspecified fetus Qualified Code(s): O35.BXX0 - Maternal care for other (suspected) abnormality and damage, cardiac anomalies, not applicable or unspecified Category: Medical Code(s): O35.BXX0 - Maternal care for other (suspected) abnormality and damage, cardiac anomalies, not applicable or unspecified (4) Dilation of renal pelvis of fetus: Status: Acute Category: Medical (5) Rubella non-immune status, antepartum: Status: Acute Category: Medical Code(s): O09.899 - Supervision of other high risk pregnancies, unspecified trimester; Z28.39 - Other underimmunization status (6) : Status: Acute Qualifiers: Weeks of gestation: 37 weeks Qualified Code(s): Z3A.37 - 37 weeks gestation of Category: Medical Code(s): Z34.90 - Encounter for supervision of normal , unspecified, unspecified trimester Plan - Monitor vitals - Admit to L&D for induction of labor, labor monitoring, and delivery - S/P one dose 25mcg PO cytotec with pitocin per protocol this morning - External FHR and TOCO monitor - GBS-/ Blood type: A+, antibody positive - Hemoglobin: 11.1, Plt: 244 - Plan for epidural - Anticipate vaginal delivery of [place] Gender!!! Male: Michael Marie. Female: Patricia Rodriguez
[2023-08-20] MEDS: METHYLERGONOVINE MALEATE 0.2MG/ML INJ 0.200000000000000011 MG IM (17:00)
[2023-08-20] MEDS: OXYTOCIN/RINGERS LACTATE 30 UNITS/500 ML BAG 999 UNITS IV (17:00)
[2023-08-20 17:15] LABS: Cord Blood PH 7.36 (7.35-7.45)
[2023-08-20] MEDS: OXYTOCIN/RINGERS LACTATE 30 UNITS/500 ML BAG 40 UNITS IV (17:16)
[2023-08-20 17:20] LABS: Cord Blood PH 7.24 (7.35-7.45)
--- NOTE | 2023-08-20 17:38 | EXP.DN ---
Delivery Note Delivery Date:: 08/20/23 Delivery Time:: 16:53 Anesthesia Type: Epidural Was labor medically induced?: Yes Induction method: per pitocin protocol Gestational age (weeks): 38 delivered prior to 39 weeks?: Yes Justification for early elective delivery:: Active Labor and Premature ROM Infant Gender: Male at 1 minute: 6 at 5 minutes: 7 LAC or MLE?: LAC Delivery Procedure:: Preoperative diagnosis: 1. at 38 completed this weeks gestation, vertex 2. Rh positive, antibody positive 3. GBS negative 4. Rubella nonimmune 5. Premature rupture membranes 6. Prenatally detected bilateral pyelectasis and an EIF within normal NIFT Postoperative diagnosis: 1. at 38 completed this weeks gestation, vertex 2. Rh positive, antibody positive 3. GBS negative 4. Rubella nonimmune 5. Premature rupture membranes 6. Prenatally detected bilateral pyelectasis and an EIF within normal NIFT EBL: 350mL Specimen: 1. Cord blood 2. Arterial and venous cord gas Findings: 1. Liveborn viable male : Alistair Marie. Apgars 6/7 at 1 and 5 minutes respectively. Weight: 7 pounds 8 ounces 2. 2nd degree midline perineal laceration Complications: None Procedure: Nonoperative spontaneous vaginal delivery Katrina Lieberman is a 28-year-old 1 para 0 at 38+2 weeks gestational age. She was sent to labor and delivery for induction after her AmniSure was positive in the office. This morning contractions were stronger and she was in good spirits. She received 1 dose of Cytotec and then Pitocin was started. Later in the morning and a forebag was noted and ruptured, clear fluid. She received an epidural for anesthesia. She progressed to complete. FHT were reassuring throughout labor. During pushing the patient had variable decelerations with contractions. They recovered to baseline with good variability in between contractions. The infant was noted to be in SANAM position. With effective maternal pushing there was a nonoperative spontaneous vaginal delivery. There was a nuchal cord x1 that was reduced without difficulty. The anterior right shoulder delivered, followed by the posterior shoulder without dystocia. There was a compound presentation with a posterior arm. The body and lower extremities delivered without difficulty. The infant was bulb suctioned and was crying immediately following delivery. The was placed on the maternal abdomen and greater than one minute was appreciated for delayed cord clamping. The umbilical cord was doubly clamped and cut. Cord blood was collected and sent for routine testing. The placenta delivered with cord traction and suprapubic contertraction. Pitocin was started and the placenta and cord were inspected. The uterus was boggy and there was a moderate amount of bleeding. Methergine was administered. Fundal massage was continued and the uterus began to have adequate tone. The perineum, vaginal ng, cervix, and paraurethral area were inspected thoroughly. There was a second-degree midline perineal laceration. The laceration was repaired in the usual fashion using 2-0 Vicryl suture. The laceration was hemostatic. The bilateral labial abrasions that were hemostatic and not repaired. The cervix and vaginal ng were inspected and noted to be hemostatic. This concluded the delivery. The patient was counseled regarding the events of the delivery and repair. The patient tolerated the delivery well. All counts were correct by nursing. Mother and were doing well and bonding upon my leaving the delivery room. Laceration:: vaginal Placental Delivery Description: Spontaneous
[2023-08-20] MEDS: IBUPROFEN 400 MG TABLET 800 MG PO (20:28)
[2023-08-20] MEDS: ACETAMINOPHEN 500MG TAB 1000 MG PO (20:28)
[2023-08-20 20:35] LABS: Basophils % 0.1 % (0.1-2.0); Eosinophils % 0.3 % (0.1-12.0); Hematocrit 30.8 % (37.0-47.0); Hemoglobin 10.5 g/dL (12.2-16.2); Lymphocytes # 1.3 K/mm3 (0.7-4.5); Lymphocytes % 8.1 % (10-50); Mean Corpuscular HGB Conc 34.1 g/dL (31.8-35.4); Mean Corpuscular Hemoglobin 27.1 pg (27.0-31.2); Mean Corpuscular Volume 79.4 fl (81-99); Monocytes # 0.6 K/mm3 (0.1-1.0); Monocytes % 3.9 % (1.7-9.3); Neutrophils # 13.8 K/mm3 (1.8-7.8); Neutrophils % 87.6 % (37.0-80.0); Platelet Count 203 K/mm3 (142-424); Red Blood Count 3.88 M/mm3 (4.20-5.40); Red Cell Distribution Width 13.3 % (11.5-17.5); White Blood Count 15.7 K/mm3 (4.8-10.8)
[2023-08-20 20:38] LABS: MANUAL DIFFERENTIAL MANUAL DIFFERENTIAL (MANUAL DIFF)
[2023-08-20 20:52] LABS: Lymphocytes % 7 % (10-50); Microcytosis 1+; Monocytes % 6 % (2-9); Neutrophils % 87 % (42-76); Platelet Estimate Normal; Total Cells Counted 100
[2023-08-21] MEDS: SENNA 8.6MG TABLET 8.59999999999999964 MG PO ×2 (00:07→21:20)
[2023-08-21] MEDS: BENZOCAINE-MENTHOL SPRAY 56GM CAN TP (00:37)
[2023-08-21] MEDS: WITCH HAZEL 40 PADS/BOX 1 EACH TP (00:38)
[2023-08-21] MEDS: ACETAMINOPHEN 500MG TAB 1000 MG PO ×4 (02:19→22:40)
[2023-08-21] MEDS: IBUPROFEN 400 MG TABLET 800 MG PO ×3 (04:27→21:18)
[2023-08-21 06:39] LABS: Basophils % 0.2 % (0.1-2.0); Eosinophils # 0.1 K/mm3 (0.0-0.4); Eosinophils % 0.7 % (0.1-12.0); Hematocrit 27.5 % (37.0-47.0); Hemoglobin 9.5 g/dL (12.2-16.2); Lymphocytes # 2.4 K/mm3 (0.7-4.5); Lymphocytes % 20.5 % (10-50); Mean Corpuscular HGB Conc 34.5 g/dL (31.8-35.4); Mean Corpuscular Hemoglobin 27.6 pg (27.0-31.2); Mean Corpuscular Volume 79.9 fl (81-99); Monocytes # 0.7 K/mm3 (0.1-1.0); Neutrophils # 8.5 K/mm3 (1.8-7.8); Neutrophils % 72.5 % (37.0-80.0); Platelet Count 193 K/mm3 (142-424); Red Blood Count 3.44 M/mm3 (4.20-5.40); Red Cell Distribution Width 13.5 % (11.5-17.5); White Blood Count 11.7 K/mm3 (4.8-10.8)
[2023-08-21 07:41] VITALS: BP 111/69; PULSE 84; RESP 16; TEMP 36.7; O2SAT 99
--- NOTE | 2023-08-21 08:34 | P.PN_ITS ---
Subjective *Date: 08/21/23 *Time: 08:34 Interval history: PPD # 1 s/p Feeling well. Pain controlled. Breast feeding. Appropriate lochia. Voiding without difficulty and passing flatus. Tolerating regular diet. Denies fever/chills, chest pain and shortness of breath. No headaches, vision changes, dizziness/lightheadedness. No swelling. Ambulating well ad shon. Medical Exam Vital signs and Labs for Last 24 Hours: Vital Signs Temp Pulse Resp BP Pulse Ox O2 Del Method 08/21/23 07:41 98.0 F 84 16 111/69 99 Room Air Laboratory Results - last 24 hr 08/19/23 13:10: Antibody Identification See Comments 08/20/23 17:11: Cord ABG pH 7.36 08/20/23 17:16: Cord ABG pH 7.24 L* 08/20/23 20:30: WBC 15.7 H, RBC 3.88 L, Hgb 10.5 L, Hct 30.8 L, MCV 79.4 L, MCH 27.1, MCHC 34.1, RDW 13.3, Plt Count 203, MPV 9.0, Neut % (Auto) 87.6 H, Lymph % (Auto) 8.1 L, [place] % (Auto) 3.9, Eos % (Auto) 0.3, Baso % (Auto) 0.1, Neut # (Auto) 13.8 H, Lymph # (Auto) 1.3, [place] # (Auto) 0.6, Eos # (Auto) 0.0, Baso # (Auto) 0.0, Total Counted 100, Neutrophils % (Manual) 87 H, Lymphocytes % (Manual) 7 L, Monocytes % (Manual) 6, Platelet Estimate Normal, Microcytosis 1+ 08/21/23 05:17: WBC 11.7 H D, RBC 3.44 L, Hgb 9.5 L, Hct 27.5 L, MCV 79.9 L, MCH 27.6, MCHC 34.5, RDW 13.5, Plt Count 193, MPV 9.0, Neut % (Auto) 72.5, Lymph % (Auto) 20.5, [place] % (Auto) 6.0, Eos % (Auto) 0.7, Baso % (Auto) 0.2, Neut # (Auto) 8.5 H, Lymph # (Auto) 2.4, [place] # (Auto) 0.7, Eos # (Auto) 0.1, Baso # (Auto) 0.0 I & O for Labs for Last 24 Hours: Intake & Output 08/18/23 08/19/23 08/20/23 08/21/23 23:59 23:59 23:59 23:59 Weight 177 lb 177 lb 0.005 oz Microbiology Reports for the Last 24 Hours: Microbiology 08/19/23 13:45 Urine,Clean Catch Urine Culture - Final Head: Present atraumatic and normocephalic ENT: Present normal exam and mucous membranes moist Neck: Present full ROM Respiratory: Present CTA bilaterally and normal respiratory effort Cardiac: Present Reg Rate and Rhythm GI: Present soft; Absent distention or tenderness Comments:: Uterine fundus firm and below umbilicus Rectal (female): Present deferred (female): Present deferred Extremities: Present normal inspection and full ROM Neuro: Present alert, awake and moves all extremities Assessment and Plan *Assessment and plan (1) Status post normal vaginal delivery: Status: Acute Category: Medical (2) 38 weeks gestation of : Status: Acute Category: Medical Code(s): Z3A.38 - 38 weeks gestation of (3) PROM (premature rupture of membranes): Status: Acute Qualifiers: PROM onset of labor timing: onset of labor more than 24 hours following rupture PROM gestational age: full term Qualified Code(s): O42.12 - Full-term premature rupture of membranes, onset of labor more than 24 hours following rupture Category: Medical Code(s): O42.90 - Premature rupture of membranes, unspecified as to length of time between rupture and onset of labor, unspecified weeks of gestation (4) cardiac echogenic focus, antepartum: Status: Acute Qualifiers: Fetus number: single or unspecified fetus Qualified Code(s): O35.BXX0 - Maternal care for other (suspected) abnormality and damage, cardiac anomalies, not applicable or unspecified Category: Medical Code(s): O35.BXX0 - Maternal care for other (suspected) abnormality and damage, cardiac anomalies, not applicable or unspecified (5) Dilation of renal pelvis of fetus: Status: Acute Category: Medical (6) Rubella non-immune status, antepartum: Status: Acute Category: Medical Code(s): O09.899 - Supervision of other high risk pregnancies, unspecified trimester; Z28.39 - Other underimmunization status (7) Acute blood loss anemia: Status: Acute Category: Medical Code(s): D62 - Acute posthemorrhagic anemia Plan Continue routine care Encouraged increased ambulation Ferrous sulfate 325 mg PO daily Plan d/c home tomorrow
[2023-08-21] MEDS: FERROUS SULFATE 325MG TABLET 325 MG PO (09:16)
[2023-08-21] MEDS: PRENATAL MULTIVITAMIN W/IRON 1 EACH PO (16:34)
[2023-08-22 04:11] VITALS: BP 104/68; PULSE 80; RESP 20; TEMP 36.8; O2SAT 97
[2023-08-22 08:35] VITALS: BP 105/64; PULSE 91; RESP 18; TEMP 36.9; O2SAT 98
[2023-08-22] MEDS: SENNA 8.6MG TABLET 8.59999999999999964 MG PO (08:43)
[2023-08-22] MEDS: FERROUS SULFATE 325MG TABLET 325 MG PO (08:43)
[2023-08-22] MEDS: IBUPROFEN 400 MG TABLET 800 MG PO (08:43)
[2023-08-22] MEDS: ACETAMINOPHEN 500MG TAB 1000 MG PO (08:44)
--- NOTE | 2023-08-22 11:01 | P.DS_ITS ---
General Admission date:: 08/19/23 Discharge date: 08/22/23 HPI HPI HPI: PPD # 2 s/p Feeling well. Pain controlled. Breast feeding. Light lochia. Voiding without difficulty and passing flatus. Tolerating regular diet. Denies fever/chills, chest pain and shortness of breath. No headaches, vision changes, dizziness/lightheadedness. No swelling. Ambulating well ad shon. Hospital Course Hospital Course Hospital Course: Mrs Katrina Lieberman is a 28 yo at 38w1d admitted to [facility] Labor and Delivery for premature rupture of membranes. She was seen in the office 08/19/23 and complained of a wet feeling in her underwear. She reported this had been going on for about a week or so. AmniSure was positive. She was admitted to L&D for labor augmentation and antibiotics for unknown length of time of rupture. GBS negative. She underwent labor augmentation with Cervidil followed by Cytotec 25 mcg and Pitocin. She had a normal spontaneous vaginal delivery on 08/20/23 at 1653. She delivered a live male baby, Michael Marie, weighing 7 lb 8 oz. APGARs 6 (1 min), 7 (5 min). EBL 350 mL. She did well . Pain controlled. Breast feeding. Appropriate lochia. Voiding without difficulty and passing flatus. Tolerating regular diet. No fever/chills, chest pain and shortness of breath. No headaches, vision changes, dizziness/lightheadedness. No swelling. Vital signs stable, afebrile. Heart regular rate and rhythm. Lungs clear to auscultation. Abdomen soft, nontender. No lower extremity edema. No calf pain. Ambulating well ad shon. Discharged home on PPD # 2 doing well with instructions to follow-up in the office in 2 weeks or sooner if needed. Exam Data for Last 24 hours Vital signs and Labs for Last 24 Hours: Temp Pulse Resp BP Pulse Ox O2 Del Method 98.4 F 91 H 18 105/64 L 98 Room Air 08/22/23 08:35 08/22/23 08:35 08/22/23 08:35 08/22/23 08:35 08/22/23 08:35 08/22/23 08:35 I & O for Last 24 hours: Intake & Output 01/08/20/23 08/21/23 08/22/23 23:59 23:59 23:59 23:59 Weight 177 lb 177 lb 0.005 oz Microbiology Reports for the Last 24 Hours: Microbiology 08/19/23 13:45 Urine,Clean Catch Urine Culture - Final Constitutional Constitutional: no acute distress and cooperative *Routine HEENT Exam Head: Present normocephalic and atraumatic Eye: Absent conjunctivae pink ENT: Present mucous membranes moist *Routine Neck Exam Neck: Present full ROM *Routine Respiratory Exam Respiratory: Present CTA bilaterally and normal respiratory effort *Routine Cardiovascular Exam Cardiovascular: Present RRR *Routine Abdominal Exam Abdominal: Present soft; Absent tenderness or distended Comments: Uterine fundus firm and below umbilicus *Routine Rectal Exam Patient deferred: visual exam *Routine Exam Patient deferred: external exam *Routine Extremities Exam Extremities: Present full ROM; Absent edema or calf tenderness *Routine Neurological Exam Neurological: Present alert, moving all extremities and normal speech Routine Psychiatric Exam Psychiatric: Present normal affect and cooperative DS: Diagnosis Discharge Diagnosis (1) Status post normal vaginal delivery: Status: Acute (2) 38 weeks gestation of : Status: Acute Code(s): Z3A.38 - 38 weeks gestation of (3) PROM (premature rupture of membranes): Status: Acute Code(s): O42.90 - Premature rupture of membranes, unspecified as to length of time between rupture and onset of labor, unspecified weeks of gestation Qualifiers: PROM gestational age: full term PROM onset of labor timing: onset of labor more than 24 hours following rupture Qualified Code(s): O42.12 - Full- term premature rupture of membranes, onset of labor more than 24 hours following rupture (4) cardiac echogenic focus, antepartum: Status: Acute Code(s): O35.BXX0 - Maternal care for other (suspected) abnormality and damage, cardiac anomalies, not applicable or unspecified Qualifiers: Fetus number: single or unspecified fetus Qualified Code(s): O35.BXX0 - Maternal care for other (suspected) abnormality and damage, cardiac anomalies, not applicable or unspecified (5) Dilation of renal pelvis of fetus: Status: Acute (6) Rubella non-immune status, antepartum: Status: Acute Code(s): O09.899 - Supervision of other high risk pregnancies, unspecified trimester; Z28.39 - Other underimmunization status (7) Acute blood loss anemia: Status: Acute Code(s): D62 - Acute posthemorrhagic anemia Meds Home Medications and Allergies Home Medications Medication Instructions Recorded Confirmed Type docosahexaenoic acid 200 mg 200 mg PO DAILY Supplement 08/19/23 08/19/23 History capsule ( DHA) famotidine 20 mg tablet (Pepcid) 20 mg PO BID Acid Reflux 08/19/23 08/19/23 History ibuprofen 800 mg tablet 800 mg PO Q8H PRN pain #20 tabs 08/22/23 Rx New Prescriptions to Start Prescriptions: Suzy Pimentel Allergies Allergy/AdvReac Type Severity Reaction Status Date / Time clindamycin [From Cleocin] Allergy Intermediate esophagitis Verified 08/19/23 10:49 Discharge Plan Disposition Patient Disposition: Home, Self-Care Condition: Good Discharge Order Discharge Orders: Discharge Order (Routine); Ordered 08/22/23 Ordered By: Suzy Patel Follow up Plan Follow up with: Suzy Patel DO [Staff Physician] - 09/04/23 2:45 pm Prescriptions/Medication Reconciliation: New ibuprofen 800 mg tablet 800 mg PO Q8H PRN (Reason: pain) Qty: 20 0RF Continued famotidine [Pepcid] 20 mg tablet 20 mg PO BID DHA 200 mg capsule 200 mg PO DAILY Problem Reconciliation Problems Reviewed?: Yes Patient Discharge Instructions ACTIVITY: Limited activity DIET: continue same diet and regular diet Additional Instructions: Discharge: 1. Take 800 mg Ibuprofen every 8 hours as needed for pain. You can also take 500-1000 mg of Tylenol in between doses, every 6-8 hours. 2. Nothing in the vagina for 6 weeks - no intercourse, douching or tampons. No tub baths/hot tubs or swimming pools 3. Reasons to return to L&D or call On-Call doctor - fever (greater than 100.4) - heavy vaginal bleeding (soaking through 1 pad in less than 2 hours) - vaginal discharge (malodorous and/or purulent) - severe headaches not resolved by medication or rest and leg tenderness/edema 4. depression/blues - Normal to feel anxious/overwhelmed for first 2 weeks - Talk to your doctor if: severe anxiety, trouble bonding with baby, withdrawing from other family members, thoughts of harming yourself or others Suzy Patel DO [facility] [phone] Patient Instructions: Depression, Hemorrhage, DI for Labor and Delivery, Vaginal , DI for Pre-eclampsia, [facility] Post Discharge Instructions Providers Primary Care Provider: Skinny Rivas Admit Provider: Etienne Kelly Attending Provider: Etienne Kelly
== END 2023-08-22 13:34 | disposition home or self-care (01) | DRG 806 ==
LOC: OBOUT 13:38 → OB 13:38
PROVIDERS: Obstetrics & Gynecology; Admitting Provider Nurse Practitioner Obstetrics & Gynecology; PCP Family Medicine; Visit Provider Nurse Practitioner Obstetrics & Gynecology
DX: O42.12 Full-term premature rupture of membranes, onset of labor more than 24 hours following rupture (principal); D62 Acute posthemorrhagic anemia; Z37.0 Single live birth; Z3A.38 38 weeks gestation of pregnancy; O70.1 Second degree perineal laceration during delivery; O69.81X0 Labor and delivery complicated by cord around neck, without compression, not applicable or unspecified; O90.81 Anemia of the puerperium
CPT/HCPCS: 59409; 36415; 59025; 80307; 81001; 82800; 84112; 85007; 85014; 85018; 85025; 85048; 85049; 86850; 86870; 87086; 94761; G0283; J0290; J2405

== ENCOUNTER 2024-07-24 12:38 | Outpatient (CLI) | payer BC, SELFPAY ==
[2024-07-24 17:57] LABS: Coronavirus 19, PCR Not Detected (NotDetected); Human Rhinovirus Not Detected (NotDetected); Influenza B, PCR Not Detected (NotDetected); Respiratory Syncytial Virus Not Detected (NotDetected)
[2024-07-25 01:07] LABS: Influenza A, PCR Detected (NotDetected)
== END 2024-07-24 23:59 | disposition home or self-care (01) ==
LOC: LAB.DROPOF 07-27 12:39
PROVIDERS: PCP Student in an Organized Health Care Education/Training Program; Visit Provider Student in an Organized Health Care Education/Training Program
DX: R05.9 Cough, unspecified (principal); J09.X9 Influenza due to identified novel influenza A virus with other manifestations
CPT/HCPCS: 87631

== ENCOUNTER 2024-08-27 11:57 | Outpatient (CLI) | payer BC, SELFPAY ==
[2024-08-27 13:26] LABS: HCG,Quantitative 27668 mIU/ml (0-5.42)
[2024-08-28 08:21] LABS: Progesterone 7.1 ng/mL (.)
== END 2024-08-27 23:59 | disposition home or self-care (01) ==
LOC: LAB 11:59
PROVIDERS: PCP Family Medicine; Visit Provider Obstetrics & Gynecology
DX: Z32.01 Encounter for pregnancy test, result positive (principal)
CPT/HCPCS: 36415; 84144; 84702

== ENCOUNTER 2024-09-02 16:33 | Outpatient (CLI) | payer BC, SELFPAY | END 2024-09-02 23:59 | disposition home or self-care (01) | LOC: LAB.DROPOF 16:33 | PROVIDERS: PCP Obstetrics & Gynecology; Visit Provider Obstetrics & Gynecology | DX: Z34.01 Encounter for supervision of normal first pregnancy, first trimester (principal) | CPT/HCPCS: 87086 ==

== ENCOUNTER 2024-09-17 12:35 | Outpatient (CLI) | payer BC, SELFPAY ==
[2024-09-17 13:12] LABS: Eosinophils # 0.1 K/mm3 (0.0-0.4); Eosinophils % 0.6 % (0.1-12.0); Lymphocytes # 1.7 K/mm3 (0.7-4.5); Monocytes # 0.5 K/mm3 (0.1-1.0)
[2024-09-17 14:07] LABS: Ferritin 17.1 ng/ml (6.24-137)
[2024-09-17 14:14] LABS: HIV Combo NEGATIVE (Negative)
[2024-09-17 14:21] LABS: Hepatitis C Ab Qual. W/ RFX NEGATIVE (Negative)
[2024-09-17 14:26] LABS: Basophils % 0.4 % (0.1-2.0); Hematocrit 38.2 % (37.0-47.0); Mean Corpuscular Hemoglobin 28.6 pg (27.0-31.2); Mean Corpuscular Volume 84.1 fl (81-99); Monocytes % 5.2 % (1.7-9.3); Neutrophils # 7.1 K/mm3 (1.8-7.8); Neutrophils % 75.5 % (37.0-80.0); Platelet Count 262 K/mm3 (142-424); Red Blood Count 4.54 M/mm3 (4.20-5.40); White Blood Count 9.4 K/mm3 (4.8-10.8)
[2024-09-18 07:59] LABS: Hepatitis B Surface Antigen Negative (Negative)
[2024-09-18 10:21] LABS: Rubella Antibodies, IgG 0.93 index (Immune >0.99)
[2024-09-18 15:06] LABS: RPR W/RFX Titers Nonreactive (Nonreactive)
== END 2024-09-17 23:59 | disposition home or self-care (01) ==
LOC: LAB 12:36
PROVIDERS: PCP Family Medicine; Visit Provider Obstetrics & Gynecology
DX: Z34.01 Encounter for supervision of normal first pregnancy, first trimester (principal); Z3A.08 8 weeks gestation of pregnancy; D62 Acute posthemorrhagic anemia
CPT/HCPCS: 36415; 82728; 85025; 86592; 86762; 86803; 86850; 87340; 87389

== ENCOUNTER 2024-12-08 08:49 | Outpatient (CLI) | payer BC, SELFPAY ==
--- NOTE | 2024-12-08 09:00 | US_ITS ---
PROCEDURE: US OB /MATERNAL DETAIL CLINICAL INDICATION: 20 wk anatomy, schedule in 3 weeks COMPARISON: No exams were available for comparison FINDINGS: Transabdominal sonographic images of the pelvis were obtained. From her established due date she is 20 weeks 3. Single viable intrauterine gestation. Breech position. Placenta: Anteriorplacenta grade 1. There are several small placental lakes. There is an average amount of fluid. The cervix appears satisfactory. Closed and measuring 3.38 cm in length. Complete survey performed and was unremarkable on the submitted images as in PACS. No discrete anomalies identified on survey imaging by technologist. Active fetus. Three-vessel cord with satisfactory umbilical cord insertion. 4- chamber heart noted. Situs, aortic arch, LVOT, RVOT, three-vessel view appear normal. Survey of brain & ventricles Unremarkable. Cerebellum, thalamus, choroid plexus, cisterna magna appear normal. Face and neck survey unremarkable. Profile, nasion, lips and nose appeared normal. Diaphragm and chest views unremarkable. Abdomen: Both kidneys noted and unremarkable. Stomach and bladder noted and satisfactory. Spine: Survey of the spine satisfactory with no anomalies identified nor imaged. Cervical, thoracic, lower spine appear normal. Both arms and legs noted. Amniotic Fluid: Adequate. MVP 3.16 cm Measurements: Average ultrasound age 20weeks 4days. Estimated due date by ultrasound age 0904/23/2025. Estimated weight 359g BPD = 20weeks 1day HC = 20weeks 3days AC = 20weeks 1day FL = 21weeks 1day Growth Percentile= 49 Heart Rate = 135bpm Cerebellum = 20weeks 3days Humerus = 21weeks 5days HC/AC is 1.2 FL/BPD is 0.75 FL/AC is 0.24 IMPRESSION: 1. Viable fetus in the breech presentation with an anterior placenta grade 1. 2. The fluid is within normal limits with an MVP 3.16 cm. 3. Anatomical scan appears normal. 4. biometry is consistent with the dates. Dictated by: Etienne Kelly MD 12/08/2024 10:56 Etienne Kelly MD in [place] 12/08/2024 10:56
== END 2024-12-08 23:59 | disposition home or self-care (01) ==
LOC: RAD 08:50
PROVIDERS: PCP Family Medicine; Visit Provider Obstetrics & Gynecology
DX: Z34.02 Encounter for supervision of normal first pregnancy, second trimester (principal); Z3A.20 20 weeks gestation of pregnancy; Z36.2 Encounter for other antenatal screening follow-up
CPT/HCPCS: 76811

== ENCOUNTER 2025-02-01 10:09 | Outpatient (CLI) | payer BC, SELFPAY ==
--- OUTSIDE RECORDS SUMMARY | 2023-12-18 11:15 | XMS_ITS ---
Author Organization Lani Address [facility] [address] [place] [phone] Care Team Providers Care Field Collector Name Role Phone Skinny Rivas Primary Care Provider Elijah Edwards [phone] Results Component Value Reference Range Notes CBC [...] Encounter Location Date Provider Diagnosis [place] [facility] [address] [place] [id number] 12/18/2023 Skinny Rivas Bleeding gums K06.8 Assessments Encounter Date Diagnosis (ICD Code) Assessment Notes Treatment Notes Treatment Clinical Notes Section Notes 12/18/2023 Bleeding gums (ICD-10 - K06.8) Plan Of Treatment No Information Progress Notes * Ramos DAUGHERTYDOB: 1995 (29 yo F)Acc No.[id number]:12/18/2023 Patient: Ramos GROSSMAN Provider: Andie Rivas M.D. :1995 A ge:28 Y S ex:Female Date:12/18/2023 Address[facility] [id number] Subjective: * Chief Complaints: * 1 . [...] Procedure Codes: 3 6416 CAPILLARY BLOOD DRAW, 59883 CBC WITH AUTO DIFF * Images: Billing Information: * Visit Code: * Procedure Codes: 38880 CAPILLARY BLOOD DRAW. 25766 CBC WITH AUTO DIFF. * Electronic signature of Deann Rivas MD on 02/01/2025 at 10:12 AM EDT Sign off status: Pending * Provider: Andie Rivas M.D. Date: 0 12/18/2023 Generated for Ilan bhatti/Erika/Pipoitting on: 0 02/01/2025 10:12 AM EDT
--- OUTSIDE RECORDS SUMMARY | 2024-07-15 09:45 | XMS_ITS ---
Author Organization [facility] Address [address] [facility] [address] [id number] Care Team Providers Care Manager Cleaning Name Role Phone [place] Skinny Primary Care Provider Elijah Edwards [phone] Allergies No Known Allergies Results Component Value [...] [address] [place] [address] [id number] 07/15/2024 Skinny Rivas Well adult exam Z00. [...] * Ramos DAUGHERTYDOB: 1995 (29 yo F)Acc No.[id number]:07/15/2024 Physical Patient: Ramos GROSSMAN Provider: Andie Rivas M.D. :1995 A ge:29 Y S ex:Female Date:07/15/2024 Address:[address] [place] [address] [id number] Subjective: * Chief Complaints: [...] Surgical History: C yst removal Dr. Sainz [facility] 07/11/2018. * Hospitalization/Major Diagno stic [...] Procedure Codes: 3 6416 CAPILLARY BLOOD DRAW, 53061 CBC WITH AUTO DIFF * Follow Up: v ia phone to report progress * Images: Billing Information: * Visit Code: 65683 Preventive Care Est Pt 18-39. * Procedure Codes: 50131 CAPILLARY BLOOD DRAW. 96128 CBC WITH AUTO DIFF. * Electronic signature of Deann Rivas MD on 02/01/2025 at 10:12 AM EDT Sign off status: Pending * Provider: Andie Rivas M.D. Date: 1 09/15/2023 Generated for Ilan bhatti/Erika/Pipoitting on: 0 02/01/2025 10:12 AM EDT History and Physical Notes * [...]
--- OUTSIDE RECORDS SUMMARY | 2024-07-16 08:10 | XMS_ITS ---
Author Organization [facility] Address [address] [facility] [address] [place] [id number] Care Team Providers Care Mission Support Specialist Name Role Phone Rob Skinny Primary Care Provider [phone] Elijah Edwards [phone] Results Component Value Reference Range Notes P-Comprehensive Metabolic Pa colton (CMP) Reviewed date:07/17/2024 02:02:32 PM Interpretation:Normal Performing Lab: Notes/Report: Test performed by [facility] [address] [place] [address] , [address], [place] [address] Syed Salcedo MD, Diet Aid CLIA: [id number] Sodium 143 135-145 mmol/L Potassium 4.4 3.5-5.3 [...] Interpretation:Normal Performing Lab: Notes/Report: Test performed by [facility], [address] , [place] [address] Syed Salcedo MD, Diet Aid CLIA: [id number] Cholesterol 158 <200 mg/dL Triglycerides 50 <150 [...] Provider Diagnosis [facility] [address] [facility] [address] [place] [id number] 07/16/2024 Skinny Rivas [facility] adult exam Z00. 00 Assessments Encounter Date Diagnosis (ICD Code) Assessment Notes Treatment Notes Treatment Clinical Notes Section Notes 07/16/2024 [facility] adult exam (ICD-10 - Z00.00) Plan Of Treatment No Information Progress Notes * Ramos DAUGHERTYDOB: 1995 (29 yo F)Acc No.[id number]:07/16/2024 Patient: Ramos GROSSMAN Provider: Andie Rivas M.D. :1995 A ge:29 Y S ex:Female Date:07/16/2024 Address:[address] [place], [place] [id number] Subjective: * Chief Complaints: * 1 [...] * Vitals: Assessment: * Assessment: 1. W [facility] adult exam - Z00.00 (Primary) Plan: [...] by Creatinine 114 >59 - mL/min/1.73m2 * Yossi Montezira 07/17/2024 1:33:3 1 PM > [facility] 07/17/2024 2:01:48 PM > Pt informed ?LAB: [...] 1 PM > [facility] 07/17/2024 2:01:48 PM > Pt informed * Images: Billing Information: * Visit Code: * Procedure Codes: * Electronic signature of Deann Rivas MD on 02/01/2025 at 10:12 AM EDT Sign off status: Pending * Provider: Andie Rivas M.D. Date: 1 09/16/2023 Generated for Ilan bhatti/Erika/Geovany on: 0 02/01/2025 10:12 AM EDT
--- OUTSIDE RECORDS SUMMARY | 2025-02-01 10:12 | XMS_ITS | Encounter Summary ---
Author Organization [facility] Address [address] [place] [address] Care Team Providers Care Property Specialist Name Role Phone Unavailable Primary Care Provider Unavailabl e Encounter Details Date Type Department Care Team (Late st Contact Info) Description 2023 Orders Only External Location [address] [place] [address] Provider, External Social History Tobacco Use Types Packs/Day Years Used Date Smoking Tobacco: Never Assessed Comments Unknown Sex and Gender Information Value Date Recorded Sex Assigned at Not on file Legal Sex Female 8:48 AM EDT Gender Identity Not on file Sexual Orientation Not on file documented as of this encounter Plan of Treatment Not on file documented as of this encounter Procedures Procedure Name Priority Date/Time Associated Diagnosis Comments US OUTSIDE IMAGES 2023 2:43 PM EDT documented in this encounter Results * US OUTSIDE IMAGES (2023 2:43 PM EDT) Anatomical Region Laterality Modality Ultrasound 2023 2:43 PM EDT us External Provider IMG US PROCEDURES Final Result documented in this encounter Visit Diagnoses Not on filedocumented in this encounter
--- OUTSIDE RECORDS SUMMARY | 2025-02-01 10:13 | XMS_ITS | Clinical Summary ---
Author Organization [facility] Address [address] [place] [address] Care Team Providers Care Vacuum Tank Tender Name Role Phone Unavailable Primary Care Provider Unavailabl e Social History Tobacco Use Types Packs/Day Years Used Date Smoking Tobacco: Never Assessed Comments Unknown Sex and Gender Information Value Date Recorded Sex Assigned at Not on file Legal Sex Female 8:48 AM EDT Gender Identity Not on file Sexual Orientation Not on file Plan of Treatment Not on file
[2025-02-01 11:53] LABS: Hematocrit 32.2 % (37.0-47.0); Hemoglobin 10.6 g/dL (12.2-16.2); Immature Granulocytes % 0.9 %; Mean Corpuscular HGB Conc 32.9 g/dL (31.8-35.4); Mean Corpuscular Hemoglobin 27.2 pg (27.0-31.2); Mean Corpuscular Volume 82.8 fl (81-99); Nucleated Red Blood Cells % 0 %; Platelet Count 185 K/mm3 (142-424); Red Blood Count 3.89 M/mm3 (4.20-5.40); Red Cell Distribution Width-SD 37.0 fL; White Blood Count 8.5 K/mm3 (4.8-10.8)
[2025-02-01 12:13] LABS: Glucose 1 Hour 90 mg/dL (74-100)
[2025-02-01 13:12] LABS: Ferritin 5.37 ng/ml (6.24-137)
[2025-02-02 07:11] LABS: RPR W/RFX Titers Nonreactive (Nonreactive)
== END 2025-02-01 23:59 | disposition home or self-care (01) ==
PROVIDERS: PCP Family Medicine; Visit Provider Obstetrics & Gynecology
DX: Z34.83 Encounter for supervision of other normal pregnancy, third trimester (principal); D50.9 Iron deficiency anemia, unspecified
CPT/HCPCS: 36415; 82728; 82947; 85025; 86592

== ENCOUNTER 2025-02-04 09:23 | Outpatient (CLI) | payer BC, SELFPAY ==
--- OUTSIDE RECORDS SUMMARY | 2023-12-18 11:15 | XMS_ITS ---
Author Organization Lani Address 1210 [facility] [address] [place] [phone] Care Team Providers Care Compensator Name Role Phone Skinny Rivas Primary Care Provider Elijah Edwards [phone] Results Component Value Reference Range Notes CBC [...] Encounter Location Date Provider Diagnosis [place] [facility] [address] [place] [id number] 12/18/2023 Skinny Rivas Bleeding gums K06.8 Assessments Encounter Date Diagnosis (ICD Code) Assessment Notes Treatment Notes Treatment Clinical Notes Section Notes 12/18/2023 Bleeding gums (ICD-10 - K06.8) Plan Of Treatment No Information Progress Notes * Ramos DAUGHERTYDOB: 1995 (29 yo F)Acc No.[id number]:12/18/2023 Patient: Ramos GROSSMAN Provider: Andie Rivas M.D. :1995 A ge:28 Y S ex:Female Date:12/18/2023 Address:[facility] [id number] Subjective: * Chief Complaints: * 1 . [...] Procedure Codes: 3 6416 CAPILLARY BLOOD DRAW, 07274 CBC WITH AUTO DIFF * Images: Billing Information: * Visit Code: * Procedure Codes: 89950 CAPILLARY BLOOD DRAW. 31772 CBC WITH AUTO DIFF. * Electronic signature of Deann Rivas MD on 02/04/2025 at 09:26 AM EDT Sign off status: Pending * Provider: Andie Rivas M.D. Date: 12/18/2023 Generated for Ilan bhatti/Erika/Pipoitting on: 0 02/04/2025 09:26 AM EDT
--- OUTSIDE RECORDS SUMMARY | 2024-07-15 09:45 | XMS_ITS ---
Author Organization [facility] Address [address] [facility] [address] [address] [id number] Care Team Providers Care Toll Bridge Operator Name Role Phone [place] Skinny Primary Care Provider [phone] Elijah Edwards [phone] Allergies No Known Allergies Results Component Value [...] [address] [place] [address] [id number] 07/15/2024 Skinny Rivas Well adult exam Z00. [...] * Ramos DAUGHERTYDOB: 1995 (29 yo F)Acc No.[id number]:07/15/2024 Physical Patient: Ramos GROSSMAN Provider: Andie Rivas M.D. :1995 A ge:29 Y S ex:Female Date:07/15/2024 Address:[address] [place] [address] [id number] Subjective: * Chief Complaints: [...] Surgical History: C yst removal Dr. Sainz [facility] 07/11/2018. * Hospitalization/Major Diagno stic Procedure: [...] Procedure Codes: 3 6416 CAPILLARY BLOOD DRAW, 83300 CBC WITH AUTO DIFF * Follow Up: v ia phone to report progress * Images: Billing Information: * Visit Code: 41023 Preventive Care Est Pt 18-39. * Procedure Codes: 18984 CAPILLARY BLOOD DRAW. 55875 CBC WITH AUTO DIFF. * Electronic signature of Deann Rivas MD on 02/04/2025 at 09:27 AM EDT Sign off status: Pending * Provider: Andie Rivas M.D. Date: 1 09/15/2023 Generated for Ilan bhatti/Erika/Pipoitting on: 0 02/04/2025 09:27 AM EDT History and Physical Notes * [...]
--- OUTSIDE RECORDS SUMMARY | 2024-07-16 08:10 | XMS_ITS ---
Author Organization [facility] Address [address] [facility] [address] [place] [id number] Care Team Providers Care Video Arcade Manager Name Role Phone Rbo Skinny Primary Care Provider Elijah Edwards [phone] Results Component Value Reference Range Notes P-Comprehensive Metabolic Pa colton (CMP) Reviewed date:07/17/2024 02:02:32 PM Interpretation:Normal Performing Lab: Notes/Report: Test performed by [facility] [address] [place] [address] , [address], [place] [address] Syed Salcedo MD, Mechanical Adjuster CLIA: [id number] Sodium 143 135-145 mmol/L Potassium 4.4 3.5-5.3 [...] Interpretation:Normal Performing Lab: Notes/Report: Test performed by [facility], [address] , [place] [address] Syed Salcedo MD, Mechanical Adjuster CLIA: [id number] Cholesterol 158 <200 mg/dL Triglycerides 50 <150 [...] [facility] [address] [facility] [address] [id number] 07/16/2024 Skinny Rivas [facility] adult exam Z00. 00 Assessments Encounter Date Diagnosis (ICD Code) Assessment Notes Treatment Notes Treatment Clinical Notes Section Notes 07/16/2024 [facility] adult exam (ICD-10 - Z00.00) Plan Of Treatment No Information Progress Notes * Ramos DAUGHERTYDOB: 1995 (29 yo F)Acc No.[id number]:07/16/2024 Patient: Ramos GROSSMAN Provider: Andie Rivas M.D. :1995 A ge:29 Y S ex:Female Date:07/16/2024 Address:[address] [place], [place] [id number] Subjective: * Chief Complaints: * 1 [...] * Vitals: Assessment: * Assessment: 1. W [facility] adult exam - Z00.00 (Primary) Plan: * [...] 1 PM > [facility] 2:01:48 PM > Pt [...] 1 PM > [facility] 07/17/2024 2:01:48 PM > Pt informed * Images: Billing Information: * Visit Code: * Procedure Codes: * Electronic signature of Deann Rivas MD on 02/04/2025 at 09:26 AM EDT Sign off status: Pending * Provider: Andie Rivas M.D. Date: 1 09/16/2023 Generated for Ilan bhatti/Erika/Geovany on: 0 02/04/2025 09:26 AM EDT
--- OUTSIDE RECORDS SUMMARY | 2025-02-04 09:26 | XMS_ITS | Patient Health Record ---
Author Organization [facility] Address [address] [place]aez [id number] Care Team Providers Care Senior Project Controls Specialist Name Role Phone Skinny Rivas Primary Care Provider [phone] Elijah Edwards Unavailable [phone] Allergies No Known Allergies Results Component Value [...] - 38 plat 211 100 - 400 P-Comprehensive Metabolic Pa colton (CMP) Reviewed date:07/17/2024 02:02:32 PM Interpretation:Normal Performing Lab: Notes/Report: Test performed by [facility] , [address], [place] [address] Syed Salcedo MD, Turntable Operator CLIA: [id number] Sodium 143 135-145 mmol/L Potassium 4.4 3.5-5.3 [...] Interpretation:Normal Performing Lab: Notes/Report: Test performed by [email or web address] [employer], [address] , [facility], [place] [address] Syed Salceod MD, Turntable Operator CLIA: [id number] Cholesterol 158 <200 mg/dL Triglycerides 50 <150 [...] Results: 92 Units: mg/dL % Change: - Medications Medication SIG (Take, Route, Frequency, Duration) Notes Start Date End Date Status dexAMETHasone 2 MG 1 tablet Orally ever y 12 hrs; Duration: 5 day(s) 07/17/2024 Active Afrin Allergy Sinus 0.05 % 4 sprays (2 s prays in each nostril) Nasally Twice a day 07/15/2024 Active Astepro 205.5 MCG/SPRAY 2 sprays (1 spra y in each nostril) Nasally Twice a day 07/15/2024 Active Immunizations Vaccine Route Administration Date Status Comme nts COVID 19 Pfizer Unknown 11/15/2020 Administered Fluzone Quad (6months&older) IM Intramuscular 04/28/2019 Administered Menactra IM Intramuscular 03/11/2012 Administered Varivax SC Subcutaneous 03/11/2012 Administered Problems Problem Type SNOMED Code ICD Code Onset Dates Problem Status W/U Status Risk Notes Problem Allergic rhinitis (73014118) ALLERGIC RHINITIS NOS (477.9) Active confirmed Problem Chronic rhinitis (99335118) Rhinitis, unspecified type (J31.0) Active confirmed Problem Glossodynia (41191041) Tongue sore (K14.6) Active confirmed Problem Hypertrophy of tonsils (54435076) Lingual tonsil hypertrophy (J35.1) Active confirmed Vital Signs Heart Rate 96 /min 07/15/2024 Blood pressure diastolic 68 mm Hg 07/15/2024 Height 65.75 in 07/15/2024 Blood pressure systolic 116 mm Hg 07/15/2024 Weight 153.4 lbs 07/15/2024 BMI 24.95 kg/m2 07/15/2024 Encounters Encounter Location Date Provider Diagnosis [facility] [address] [facility] [address] [place] [id number] 07/15/2024 Skinny Rivas [facility] adult exam Z00. 00 and Acute URI J06.9 [facility] [address] [place] [id number] 07/16/2024 Skinny Rivas [facility] adult exam Z00. 00 [facility] [address] [place]ae[place] [id number] 07/17/2024 Skinny Rivas Assessments Encounter Date Diagnosis (ICD Code) Assessment Notes Treatment Notes Treatment Clinical Notes Section Notes 07/15/2024 [facility] adult exam (ICD-10 - Z00.00) Patient to return when fasting tomorrow for Lipid profile and CMP 07/15/2024 Acute URI (ICD-10 - J06.9) 07/16/2024 [facility] adult exam (ICD-10 - Z00.00) Plan Of Treatment No Information Insurance Providers Payer Name Payer Address Payer Phone Subscriber Number Group Number Insured Name Patient Relationship to Insured Coverage Start Date Coverage End Date LACIE GREENFIELD [address] [place] [address] [id number] Ramos LOERA Self - patient is the insured Medical (General) History Surgical History Surgery Date(Month/Year) Cyst removal [facility] Sainz [facility] 07/11/2018
--- OUTSIDE RECORDS SUMMARY | 2025-02-04 09:27 | XMS_ITS | Encounter Summary ---
Author Organization Healthcare Address [address] [place] [address] Care Team Providers Care Assembly Instructions Writer Name Role Phone Unavailable Primary Care Provider Unavailabl e Encounter Details Date Type Department Care Team (Late st Contact Info) Description 2023 Orders Only External Location [address] [place] [address] Provider, External Social History Tobacco Use Types [...]
--- OUTSIDE RECORDS SUMMARY | 2025-02-04 09:27 | XMS_ITS | Clinical Summary ---
Author Organization [facility] Address [address] [place] [address] Care Team Providers Care Varnish Thinner Name Role Phone Unavailable Primary Care Provider [...]
== END 2025-02-04 23:59 | disposition home or self-care (01) ==
LOC: LAB 09:24
PROVIDERS: PCP Family Medicine; Visit Provider Obstetrics & Gynecology
DX: D50.9 Iron deficiency anemia, unspecified (principal)
CPT/HCPCS: 36415

== ENCOUNTER 2025-02-16 12:03 | Outpatient (CLI) | payer BC, SELFPAY ==
--- OUTSIDE RECORDS SUMMARY | 2023-12-18 11:15 | XMS_ITS ---
Author Organization Lani Address [facility]10 [facility] [address] [place] [phone] Care Team Providers Care Industrial Conveyor Belt Repairer Name Role Phone Skinny Rivas Primary Care Provider [phone] Elijah Edwards [phone] Results Component Value Reference Range Notes CBC [...] Encounter Location Date Provider Diagnosis [place] [facility] [address] [place] [id number] 12/18/2023 Skinny Rivas Bleeding gums K06.8 Assessments Encounter Date Diagnosis (ICD Code) Assessment Notes Treatment Notes Treatment Clinical Notes Section Notes 12/18/2023 Bleeding gums (ICD-10 - K06.8) Plan Of Treatment No Information Progress Notes * Ramos DAUGHERTYDOB: 1995 (29 yo F)Acc No.[id number]:12/18/2023 Patient: Ramos GROSSMAN Provider: Andie Rivas M.D. :1995 A ge:28 Y S ex:Female Date:12/18/2023 Address:[facility] [id number] Subjective: * Chief Complaints: * 1 . [...] Procedure Codes: 3 6416 CAPILLARY BLOOD DRAW, 07374 CBC WITH AUTO DIFF * Images: Billing Information: * Visit Code: * Procedure Codes: 80557 CAPILLARY BLOOD DRAW. 54934 CBC WITH AUTO DIFF. * Electronic signature of Deann Rivas MD on 02/16/2025 at 12:06 PM EDT Sign off status: Pending * Provider: Andie Rivas M.D. Date: 0 12/18/2023 Generated for Ilan bhatti/Erika/Pipoitting on: 0 02/16/2025 12:06 PM EDT
--- OUTSIDE RECORDS SUMMARY | 2024-07-15 09:45 | XMS_ITS ---
Author Organization [facility] Address [address] [facility] [address] [id number] Care Team Providers Care Ceramic Capacitor Processor Name Role Phone [place] Skinny Primary Care Provider Elijah Edwards [phone] Allergies No Known Allergies Results Component Value [...] [address] [place] [address] [id number] 07/15/2024 Skinny Rivas Well adult exam Z00. [...] * Ramos DAUGHERTYDOB: 1995 (29 yo F)Acc No.[id number]:07/15/2024 Physical Patient: Ramos GROSSMAN Provider: Andie Rivas M.D. :1995 A ge:29 Y S ex:Female Date:07/15/2024 Address:[address] [place] [address] [id number] Subjective: * Chief Complaints: [...] Surgical History: C yst removal Dr. Sainz [facility] 07/11/2018. * Hospitalization/Major Diagno stic [...] Procedure Codes: 3 6416 CAPILLARY BLOOD DRAW, 34125 CBC WITH AUTO DIFF * Follow Up: v ia phone to report progress * Images: Billing Information: * Visit Code: 99605 Preventive Care Est Pt 18-39. * Procedure Codes: 75602 CAPILLARY BLOOD DRAW. 23376 CBC WITH AUTO DIFF. * Electronic signature of Deann Rivas MD on 02/16/2025 at 12:06 PM EDT Sign off status: Pending * Provider: Andie Rivas M.D. Date: 1 09/15/2023 Generated for Ilan bhatti/Erika/Pipoitting on: 0 02/16/2025 12:06 PM EDT History and Physical Notes * [...]
--- OUTSIDE RECORDS SUMMARY | 2024-07-16 08:10 | XMS_ITS ---
Author Organization [facility] Address [address] [facility] [address] [place] [id number] Care Team Providers Care Payroll Representative Name Role Phone Rob Skinny Primary Care Provider Elijah Edwards [phone] Results Component Value Reference Range Notes P-Comprehensive Metabolic Pa colton (CMP) Reviewed date:07/17/2024 02:02:32 PM Interpretation:Normal Performing Lab: Notes/Report: Test performed by [facility] [address] [place] [address] , [address], [place] [address] Syed Salcedo MD, Soda Fountain Manager CLIA: [id number] Sodium 143 135-145 mmol/L Potassium 4.4 3.5-5.3 [...] Interpretation:Normal Performing Lab: Notes/Report: Test performed by [facility], [address] , [place] [address] Syed Salcedo MD, Soda Fountain Manager CLIA: [id number] Cholesterol 158 <200 mg/dL Triglycerides 50 <150 [...] Provider Diagnosis [facility] [address] [facility] [address] [id number] 07/16/2024 Skinny Rivas [facility] adult exam Z00. 00 Assessments Encounter Date Diagnosis (ICD Code) Assessment Notes Treatment Notes Treatment Clinical Notes Section Notes 07/16/2024 [facility] adult exam (ICD-10 - Z00.00) Plan Of Treatment No Information Progress Notes * Ramos DAUGHERTYDOB: 1995 (29 yo F)Acc No.[id number]:07/16/2024 Patient: Ramos GROSSMAN Provider: Andie Rivas M.D. :1995 A ge:29 Y S ex:Female Date:07/16/2024 Address:[address] [place], [place] [id number] Subjective: * Chief Complaints: * 1 [...] * Vitals: Assessment: * Assessment: 1. W [facility] adult exam - Z00.00 (Primary) Plan: [...] 1 PM > [facility] 07/17/[facility] 2:01:48 PM > Pt [...] 1 PM > LM for [facility] 07/17/2024 2:01:48 PM > Pt informed * Images: Billing Information: * Visit Code: * Procedure Codes: * Electronic signature of Deann Rivas MD on 02/16/2025 at 12:06 PM EDT Sign off status: Pending * Provider: Andie Rivas M.D. Date: 1 09/16/2023 Generated for Ilan bhatti/Erika/Geovany on: 0 02/16/2025 12:06 PM EDT
--- OUTSIDE RECORDS SUMMARY | 2025-02-16 12:06 | XMS_ITS | Patient Health Record ---
Author Organization [facility] Address [address] [place]aez [id number] Care Team Providers Care Yoga Teacher Name Role Phone Skinny Rivas Primary Care Provider Elijah Edwards Unavailable [phone] Allergies No Known Allergies Results Component Value [...] Interpretation:Normal Performing Lab: Notes/Report: Test performed by [facility] , [address], [place] [address] Syed Salcedo MD, Cuff Runner CLIA: [id number] Sodium 143 135-145 mmol/L Potassium 4.4 3.5-5.3 [...] Interpretation:Normal Performing Lab: Notes/Report: Test performed by [facility], [address] , [facility], [place] [address] Syed Salcedo MD, Cuff Runner CLIA: [id number] Cholesterol 158 <200 mg/dL Triglycerides 50 <150 [...] Vaccine Route Administration Date Status Comme nts Varivax SC Subcutaneous 03/11/2012 Administered Menactra IM Intramuscular 03/11/2012 Administered Fluzone Quad (6months&older) IM Intramuscular 04/28/2019 Administered COVID 19 Pfizer Unknown 11/15/2020 Administered Problems Problem Type SNOMED Code ICD Code Onset Dates Problem Status W/U Status Risk Notes Problem Allergic rhinitis (91586443) ALLERGIC RHINITIS NOS (477.9) Active confirmed Problem Chronic rhinitis (14287623) Rhinitis, unspecified type (J31.0) Active confirmed Problem Glossodynia (17290675) Tongue sore (K14.6) Active confirmed Problem Hypertrophy of tonsils (82276196) Lingual tonsil hypertrophy (J35.1) Active confirmed Vital Signs Heart Rate 96 /min 07/15/2024 Blood pressure diastolic 68 mm Hg 07/15/2024 Height 65.75 in 07/15/2024 Blood pressure systolic 116 mm Hg 07/15/2024 Weight 153.4 lbs 07/15/2024 BMI 24.95 kg/m2 07/15/2024 Encounters Encounter Location Date Provider Diagnosis [facility] [address] [facility] [address] [place] [id number] 07/15/2024 Skinny Rivas [facility] adult exam Z00. 00 and Acute URI J06.9 [facility] [address] [place] [id number] 07/16/2024 Skinny Rivas [facility] adult exam Z00. 00 [facility] [address] [place] [id number] 07/17/2024 Skinny Rivas Assessments Encounter Date Diagnosis [...] End Date LACIE GREENFIELD [address] [place] [address] [id number] Ramos LOERA Self - patient is the insured Medical (General) History Surgical History Surgery Date(Month/Year) Cyst removal Dr. Sainz [facility] 07/11/2018
--- OUTSIDE RECORDS SUMMARY | 2025-02-16 12:07 | XMS_ITS | Clinical Summary ---
Author Organization [facility] Address [address] [place] [address] Care Team Providers Care Creasing And Cutting Press Feeder Name Role Phone Unavailable Primary Care Provider [...]
--- OUTSIDE RECORDS SUMMARY | 2025-02-16 12:07 | XMS_ITS | Encounter Summary ---
Author Organization [facility] Address [address] [place] [address] Care Team Providers Care Wholesale And Retail Merchant Name Role Phone Unavailable Primary Care Provider Unavailabl e Encounter Details Date Type Department Care Team (Late st Contact Info) Description 2023 Orders Only External Location [address] [place] [address] Provider, External Social History Tobacco Use Types [...]
[2025-02-16 12:39] LABS: Hematocrit 31.8 % (37.0-47.0); Hemoglobin 10.4 g/dL (12.2-16.2); Immature Granulocytes % 1.0 %; Mean Corpuscular HGB Conc 32.7 g/dL (31.8-35.4); Mean Corpuscular Hemoglobin 26.9 pg (27.0-31.2); Mean Corpuscular Volume 82.4 fl (81-99); Nucleated Red Blood Cells % 0 %; Platelet Count 183 K/mm3 (142-424); Red Blood Count 3.86 M/mm3 (4.20-5.40); Red Cell Distribution Width-SD 36.6 fL; White Blood Count 9.5 K/mm3 (4.8-10.8)
[2025-02-16 12:42] VITALS: BP 109/55; PULSE 96; RESP 16; TEMP 36.7; O2SAT 98
[2025-02-16] MEDS: IRON SUCROSE COMPLEX 200 MG in 0.9 % SODIUM CHLORIDE 100 ML 220 MG IV (12:42)
[2025-02-16] MEDS: SODIUM CHLORIDE 0.9% 10ML FLUSH SYRINGE 10 ML IV (12:42)
[2025-02-16 12:46] LABS: Albumin Level 4.0 g/dl (3.5-5.0); Chloride 103 mmol/L (98-107); Sodium 132 mmol/L (136-145)
[2025-02-16 12:47] LABS: Potassium 4.0 mmoL/L (3.5-5.1)
[2025-02-16 12:49] LABS: Alanine Aminotransferase 14 U/L (12-78); Anion Gap 8.0 mEq/L (5-15); Aspartate Amino Transferase 20 U/L (14-36); Blood Urea Nitrogen 9 mg/dl (7-17); Carbon Dioxide 25 mmol/L (22.0-30.0); Creatinine,Serum 0.50 mg/dl (0.52-1.04); Estimated Glomerular Filt Rate 146 ml/min (>60); GFR (African American) 177 ML/MIN (>60)
[2025-02-16 12:50] LABS: Albumin/Globulin Ratio 1.3 (1.1-1.8); Alkaline Phosphatase 68 U/L (38-126); Bilirubin,Total 1.1 mg/dl (0.2-1.3); Calcium 9.3 mg/dl (8.4-10.2); Globulin 3.1 g/dL (1.3-3.2); Glucose 116 mg/dl (74-100); Total Protein,Serum 7.1 g/dl (6.3-8.2)
[2025-02-16 13:15] VITALS: BP 113/58; PULSE 90; RESP 14; O2SAT 99
[2025-02-16] MEDS: LACTATED RINGERS 1000ML 1,000 ML 999 ML IV (13:20)
[2025-02-16 13:45] VITALS: BP 100/53; PULSE 85; RESP 16; O2SAT 99
[2025-02-16 14:15] VITALS: BP 116/65; PULSE 85; RESP 16; TEMP 36.7; O2SAT 99
== END 2025-02-16 14:25 | disposition home or self-care (01) ==
LOC: INF 12:04
PROVIDERS: Nurse Practitioner Obstetrics & Gynecology; PCP Family Medicine; Visit Provider Family Medicine
DX: O99.019 Anemia complicating pregnancy, unspecified trimester (principal); D50.9 Iron deficiency anemia, unspecified; O99.619 Diseases of the digestive system complicating pregnancy, unspecified trimester; K59.09 Other constipation; Z3A.00 Weeks of gestation of pregnancy not specified
CPT/HCPCS: 96365; 80053; 85025; 96360; 96367; J1756; J7120

== ENCOUNTER 2025-02-23 12:13 | Outpatient (CLI) | payer BC, SELFPAY ==
--- OUTSIDE RECORDS SUMMARY | 2023-12-18 11:15 | XMS_ITS ---
Author Organization Lani Address [facility] [address] [place] [phone] Care Team Providers Care Box Fabricator Name Role Phone Skinny Rivas Primary Care Provider Elijah Edwards [phone] Results Component Value Reference Range Notes CBC [...] Provider Diagnosis [place] [facility] [address] [place] [id number] 12/18/2023 Skinny Rivas Bleeding gums K06.8 Assessments Encounter Date Diagnosis (ICD Code) Assessment Notes Treatment Notes Treatment Clinical Notes Section Notes 12/18/2023 Bleeding gums (ICD-10 - K06.8) Plan Of Treatment No Information Progress Notes * Ramos DAUGHERTYDOB: 1995 (29 yo F)Acc No.[id number]:12/18/2023 Patient: Ramos GROSSMAN Provider: Andie Rivas M.D. :1995 A ge:28 Y S ex:Female Date:12/18/2023 Address:[facility] [id number] Subjective: * Chief Complaints: * 1 . [...] Procedure Codes: 3 6416 CAPILLARY BLOOD DRAW, 02517 CBC WITH AUTO DIFF * Images: Billing Information: * Visit Code: * Procedure Codes: 07939 CAPILLARY BLOOD DRAW. 81039 CBC WITH AUTO DIFF. * Electronic signature of Deann Rivas MD on 02/23/2025 at 12:15 PM EDT Sign off status: Pending * Provider: Andie Rivas M.D. Date: 0 12/18/2023 Generated for Ilan bhatti/Erika/Pipoitting on: 0 02/23/2025 12:15 PM EDT
--- OUTSIDE RECORDS SUMMARY | 2024-07-15 09:45 | XMS_ITS ---
Author Organization [facility] Address [address] [facility] [address] [address] [id number] Care Team Providers Care Waiter/Waitress Buffet Name Role Phone [place] Skinny Primary Care Provider Elijah Edwards [phone] Allergies No Known Allergies Results Component Value [...] [address] [place] [address] [id number] 07/15/2024 Skinny Rivas Well adult exam Z00. [...] * Ramos DAUGHERTYDOB: 1995 (29 yo F)Acc No.[id number]:07/15/2024 Physical Patient: Ramos GROSSMAN Provider: Andie Rivas M.D. :1995 A ge:29 Y S ex:Female Date:07/15/2024 Address:[address] [place] [address] [id number] Subjective: * Chief Complaints: [...] Surgical History: C yst removal Dr. Sainz [facility] 07/11/2018. * Hospitalization/Major Diagno stic Procedure: [...] Procedure Codes: 3 6416 CAPILLARY BLOOD DRAW, 05350 CBC WITH AUTO DIFF * Follow Up: v ia phone to report progress * Images: Billing Information: * Visit Code: 34643 Preventive Care Est Pt 18-39. * Procedure Codes: 68351 CAPILLARY BLOOD DRAW. 09589 CBC WITH AUTO DIFF. * Electronic signature of Deann Rivas MD on 02/23/2025 at 12:16 PM EDT Sign off status: Pending * Provider: Andie Rivas M.D. Date: 1 09/15/2023 Generated for Ilan bhatti/Erika/Pipoitting on: 0 02/23/2025 12:16 PM EDT History and Physical Notes * [...]
--- OUTSIDE RECORDS SUMMARY | 2024-07-16 08:10 | XMS_ITS ---
Author Organization [facility] Address [address] [facility] [address] [place] [id number] Care Team Providers Care Millinery Salesperson Name Role Phone Rob Skinny Primary Care Provider Elijah Edwards [phone] Results Component Value Reference Range Notes P-Comprehensive Metabolic Pa colton (CMP) Reviewed date:07/17/2024 02:02:32 PM Interpretation:Normal Performing Lab: Notes/Report: Test performed by [facility] [address] [place] [address] , [address], [place] [address] Syed Salcedo MD, Towel Sewer CLIA: [id number] Sodium 143 135-145 mmol/L Potassium 4.4 3.5-5.3 [...] Interpretation:Normal Performing Lab: Notes/Report: Test performed by [email or web address], [address] , [place] [address] Syed Salcedo MD, Towel Sewer CLIA: [id number] Cholesterol 158 <200 mg/dL Triglycerides 50 <150 [...] Provider Diagnosis [facility] [address] [facility] [address] [id number] 07/16/2024 Skinny Rivas [facility] adult exam Z00. 00 Assessments Encounter Date Diagnosis (ICD Code) Assessment Notes Treatment Notes Treatment Clinical Notes Section Notes 07/16/2024 [facility] adult exam (ICD-10 - Z00.00) Plan Of Treatment No Information Progress Notes * Ramos DAUGHERTYDOB: 1995 (29 yo F)Acc No.[id number]:07/16/2024 Patient: Ramos GROSSMAN Provider: Andie Rivas M.D. :1995 A ge:29 Y S ex:Female Date:07/16/2024 Address:[address] [place], [place] [id number] Subjective: * Chief Complaints: * 1 [...] * Vitals: Assessment: * Assessment: 1. W [facility] adult exam - Z00.00 (Primary) Plan: [...] 1 PM > [facility] 2:01:48 PM > Pt [...] 1 PM > [facility] 07/17/2024 2:01:48 PM > Pt informed * Images: Billing Information: * Visit Code: * Procedure Codes: * Electronic signature of Deann Rivas MD on 02/23/2025 at 12:15 PM EDT Sign off status: Pending * Provider: Andie Rivas M.D. Date: 1 09/16/2023 Generated for Ilan bhatti/Erika/Geovany on: 0 02/23/2025 12:15 PM EDT
--- OUTSIDE RECORDS SUMMARY | 2025-02-23 12:16 | XMS_ITS | Encounter Summary ---
Author Organization [facility] Address [address] [place] [address] Care Team Providers Care Dialysis Nurse Name Role Phone Unavailable Primary Care Provider Unavailabl e Encounter Details Date Type Department Care Team (Late st Contact Info) Description 2023 Orders Only External Location [address] [place] [address] Provider, External Social History Tobacco Use Types [...]
--- OUTSIDE RECORDS SUMMARY | 2025-02-23 12:16 | XMS_ITS | Clinical Summary ---
Author Organization Healthcare Address [address] [place] [address] Care Team Providers Care Disciplinary Hearing Officer Name Role Phone Unavailable Primary Care Provider [...]
--- OUTSIDE RECORDS SUMMARY | 2025-02-23 12:16 | XMS_ITS | Patient Health Record ---
Author Organization [facility] Address [address] [place]aez [id number] Care Team Providers Care Jigsawyer Name Role Phone Skinny Rivas Primary Care Provider Elijah Edwards Unavailable [phone] Allergies No Known Allergies Results Component Value [...] date:07/17/2024 02:02:32 PM Interpretation:Normal Performing Lab: Notes/Report: CLIA: [id number] Syed Salcedo MD, Shoelace Tipping Machine Operator [address] [place] [address] , [address], [place] [address] Test performed by [facility], [facility] Sodium 143 135-145 mmol/L Potassium 4.4 3.5-5.3 [...] Interpretation:Normal Performing Lab: Notes/Report: Test performed by [facility], [address] , [facility], [place] [address] Syed Salcedo MD, Shoelace Tipping Machine Operator CLIA: [id number] Cholesterol 158 <200 mg/dL Triglycerides 50 <150 [...] W/U Status Risk Notes Problem Allergic rhinitis (55048761) ALLERGIC RHINITIS NOS (477.9) Active confirmed Problem Chronic rhinitis (07277919) Rhinitis, unspecified type (J31.0) Active confirmed Problem Glossodynia (22291552) Tongue sore (K14.6) Active confirmed Problem Hypertrophy of tonsils (35122075) Lingual tonsil hypertrophy (J35.1) Active confirmed Vital Signs Heart Rate 96 /min 07/15/2024 Blood pressure diastolic 68 mm Hg 07/15/2024 Height 65.75 in 07/15/2024 Blood pressure systolic 116 mm Hg 07/15/2024 Weight 153.4 lbs 07/15/2024 BMI 24.95 kg/m2 07/15/2024 Encounters Encounter Location Date Provider Diagnosis [facility] [address] [facility] [address] [place]aez [id number] 07/15/2024 Skinny Rivas [facility] adult exam Z00. 00 and Acute URI J06.9 [facility] [address] [place] [id number] 07/16/2024 Skinny Rivas [facility] adult exam Z00. 00 [facility] [address] [place] [id number] 07/17/2024 Skinny Rivas Assessments Encounter Date Diagnosis [...] End Date LACIE GREENFIELD [address] [place] [address] [id number] C [id number] 001 Ramos LOERA Self - patient is the insured Medical (General) History Surgical History Surgery Date(Month/Year) Cyst removal Dr. Sainz [facility] 07/11/2018
[2025-02-23 12:32] VITALS: BP 102/62; PULSE 97; RESP 18; TEMP 36.7; O2SAT 98
[2025-02-23] MEDS: IRON SUCROSE COMPLEX 200 MG in 0.9 % SODIUM CHLORIDE 100 ML 220 MG IV (12:32)
[2025-02-23] MEDS: SODIUM CHLORIDE 0.9% 10ML FLUSH SYRINGE 10 ML IV (12:32)
[2025-02-23 13:25] VITALS: BP 104/59; PULSE 90; RESP 18; O2SAT 98
== END 2025-02-23 13:25 | disposition home or self-care (01) ==
LOC: INF 12:14
PROVIDERS: PCP Family Medicine; Visit Provider Obstetrics & Gynecology
DX: O99.019 Anemia complicating pregnancy, unspecified trimester (principal); D50.9 Iron deficiency anemia, unspecified; Z3A.00 Weeks of gestation of pregnancy not specified
CPT/HCPCS: 96365; J1756

== ENCOUNTER 2025-03-08 09:36 | Outpatient (CLI) | payer BC, SELFPAY ==
--- OUTSIDE RECORDS SUMMARY | 2024-07-15 09:45 | XMS_ITS ---
Author Organization [facility] Address [address] [facility] [address] [id number] Care Team Providers Care Senior Electrical Designer Name Role Phone [place] Skinny Primary Care Provider Elijah Edwards [phone] Allergies No Known Allergies Results Component Value [...] [address] [id number] 07/15/2024 Skinny Rivas Well adult exam Z00. [...] rt progress, Reason: Progress Notes * Ramos DAUGHRETYDOB: 1995 (29 yo F)Acc No.[id number]:07/15/2024 Physical Patient: Ramos GROSSMAN Provider: Andie Rivas M.D. :1995 A ge:29 Y S ex:Female Date:07/15/2024 Address:[address] [place] [address] [id number] Subjective: * Chief Complaints: [...] * Surgical History: C yst removal Dr. Sainz [facility] 07/11/2018. * Hospitalization/Major Diagno stic Procedure: D [...] Procedure Codes: 3 6416 CAPILLARY BLOOD DRAW, 47180 CBC WITH AUTO DIFF * Follow Up: v ia phone to report progress * Images: Billing Information: * Visit Code: 75908 Preventive Care Est Pt 18-39. * Procedure Codes: 66269 CAPILLARY BLOOD DRAW. 72440 CBC WITH AUTO DIFF. * Electronic signature of Deann Rivas MD on 03/08/2025 at 09:39 AM EDT Sign off status: Pending * Provider: Andie Rivas M.D. Date: 1 09/15/2023 Generated for Ilan bhatti/Erika/Pipoitting on: 0 03/08/2025 09:39 AM EDT History and Physical Notes * HPI [...]
--- OUTSIDE RECORDS SUMMARY | 2024-07-16 08:10 | XMS_ITS ---
Author Organization [facility] Address [address] [facility] [address] [place] [id number] Care Team Providers Care Lung Puller Name Role Phone Rob Skinny Primary Care Provider [phone] Elijah Edwards [phone] Results Component Value Reference Range Notes P-Comprehensive Metabolic Pa colton (CMP) Reviewed date:07/17/2024 02:02:32 PM Interpretation:Normal Performing Lab: Notes/Report: Test performed by [facility] [address] [place] [address] , [address], [place] [address] Syed Salcedo MD, Railroad Surveyor CLIA: [id number] Sodium 143 135-145 mmol/L Potassium 4.4 3.5-5.3 mmol/L Chloride 105 97-108 mmol/L CO2 27 22-32 mmol/L Glucose 88 65-99 mg/dL BUN 12 6-20 mg/dL Creatinine 0.73 0.50-1.00 mg/dL Calcium 9.4 8.6-10.4 mg/dL eGFR by Creatinine 114 >59 mL/min/1.73m2 Protein 7.1 6.0-8.3 g/dL Albumin 4.7 3.5-5.3 g/dL Alkaline Phosphatase 81 35-121 IU/L ALT (SGPT) 12 <5-47 IU/L AST (SGOT) 16 <5-40 IU/L Bilirubin, Total 1.2 <0.2-1.2 mg/dL A/G Ratio 2.0 1.1-2.5 P-Lipid Panel Reviewed date:07/17/2024 02:02:32 PM Interpretation:Normal Performing Lab: Notes/Report: Test performed by [facility], [address] , [place] [address] Syed Salcedo MD, Railroad Surveyor CLIA: [id number] Cholesterol 158 <200 mg/dL Triglycerides 50 <150 mg/dL HDL Cholesterol 56 >39 mg/dL Cholesterol / HDL Ratio 2.82 0.00-4.44 Ratio Non-HDL Cholesterol 102 <130 mg/dL LDL Cholesterol (Calculation) 92 <130 mg/dL LDL Cholesterol Levels* Less than 100 mg/dL Optimal 100 to 129 mg/dL Near Optimal/ Above Optimal 130 to 159 mg/dL Borderline High 160 to 189 mg/dL High 190 mg/dL and above Very High * Categories as recommended by the 2004 ATPIII guidelines LDL/HDL Ratio 1.6 <3.3 Ratio LDL Cholesterol Patient History Test Date: 07/16/2024 LDL Results: 92 Units: mg/dL % Change: - REASON FOR VISIT fasting labs only Medications Medication SIG (Take, Route, Frequency, Duration) Notes Start Date End Date Status Afrin Allergy Sinus 0.05 % 4 sprays (2 s prays in each nostril) Nasally Twice a day 07/15/2024 Active Astepro 205.5 MCG/SPRAY 2 sprays (1 spra y in each nostril) Nasally Twice a day 07/15/2024 Active Encounters Encounter Location Date Provider Diagnosis [facility] [address] [facility] [address] [place] [id number] 07/16/2024 Skinny Rivas [facility] adult exam Z00. 00 Assessments Encounter Date Diagnosis (ICD Code) Assessment Notes Treatment Notes Treatment Clinical Notes Section Notes 07/16/2024 [facility] adult exam (ICD-10 - Z00.00) Plan Of Treatment No Information Progress Notes * Ramos DAUGHERTYDOB: 1995 (29 yo F)Acc No.[id number]:07/16/2024 Patient: Ramos GROSSMAN Provider: Andie Rivas M.D. :1995 A ge:29 Y S ex:Female Date:07/16/2024 Address:[address] [place], [place] [id number] Subjective: * Chief Complaints: * 1 . Fasting labs only. * Medical History: * Medications: T aking Afrin Allergy Sinus 0.05 % Solution 4 sprays (2 sprays in each nostril) Nasally Twice a day , Taking Astepro 205.5 MCG/SPRAY Solution 2 sprays (1 spray in each nostril) Nasally Twice a day , Medication List reviewed and reconciled with the patient Objective: * Vitals: Assessment: * Assessment: 1. W [facility] adult exam - Z00.00 (Primary) Plan: * Treatment: Value Reference Range A /G Ratio 2.0 1.1-2.5 - * A lbumin 4.7 3.5-5.3 - g/dL * A lkaline Phosphatase 81 35-121 - IU/L * A LT (SGPT) 12 <5-47 - IU/L * A ST (SGOT) 16 <5-40 - IU/L * B ilirubin, Total 1.2 <0.2-1.2 - mg/dL * B UN 12 6-20 - mg/dL * C alcium 9.4 8.6-10.4 - mg/dL * C hloride 105 97-108 - mmol/L * C O2 27 22-32 - mmol/L * C reatinine 0.73 0.50-1.00 - mg/dL * G lucose 88 65-99 - mg/dL * P otassium 4.4 3.5-5.3 - mmol/L * S odium 143 135-145 - mmol/L * P rotein 7.1 6.0-8.3 - g/dL * e GFR by Creatinine 114 >59 - mL/min/1.73m2 * Vickie Montez 07/17/2024 1:33:3 1 PM > [facility] 2:01:48 PM > Pt informed ?LAB: P-Lipid Panel (Collection Date & Time - 07/16/2024 11:25 AM)?Normal* Value Reference Range C holesterol / HDL Ratio 2.82 0.00-4.44 - Ratio * C holesterol 158 <200 - mg/dL * H DL Cholesterol 56 >39 - mg/dL * L DL Cholesterol (Calculation) 92 <130 - mg/d L * L DL/HDL Ratio 1.6 <3.3 - Ratio * N on-HDL Cholesterol 102 <130 - mg/dL * T riglycerides 50 <150 - mg/dL * Vickie Montez 07/17/2024 1:33:3 1 PM > [facility] 07/17/[facility]24 2:01:48 PM > Pt informed * Images: Billing Information: * Visit Code: * Procedure Codes: * Electronic signature of Deann Rivas MD on 03/08/2025 at 09:39 AM EDT Sign off status: Pending * Provider: Andie Rivas M.D. Date: 1 09/16/2023 Generated for Ilan bhatti/Erika/Geovany on: 0 03/08/2025 09:39 AM EDT
--- OUTSIDE RECORDS SUMMARY | 2025-03-08 09:39 | XMS_ITS | Patient Health Record ---
Author Organization [facility] Address [address] [place] Baez [id number] Care Team Providers Care Animal Shelter Worker Name Role Phone Skinny Rivas Primary Care Provider Elijah Edwards Unavailable [phone] Allergies No Known Allergies Results Component Value [...] 02:02:32 PM Interpretation:Normal Performing Lab: Notes/Report: CLIA: [id number] Syed Salcedo MD, Equipment Operator Wage Hand [address] [place] [address] , [address], [place] [address] Test performed by [facility], [facility] Sodium 143 135-145 mmol/L Potassium 4.4 [...] Interpretation:Normal Performing Lab: Notes/Report: Test performed by [facility], [address] , [facility], [place] [address] Syed Salcedo MD, Equipment Operator Wage Hand CLIA: [id number] Cholesterol 158 <200 mg/dL Triglycerides 50 <150 [...] W/U Status Risk Notes Problem Allergic rhinitis (30381762) ALLERGIC RHINITIS NOS (477.9) Active confirmed Problem Chronic rhinitis (21619307) Rhinitis, unspecified type (J31.0) Active confirmed Problem Glossodynia (49868690) Tongue sore (K14.6) Active confirmed Problem Hypertrophy of tonsils (45607942) Lingual tonsil hypertrophy (J35.1) Active confirmed Vital Signs Heart Rate 96 /min 07/15/2024 Blood pressure diastolic 68 mm Hg 07/15/2024 Height 65.75 in 07/15/2024 Blood pressure systolic 116 mm Hg 07/15/2024 Weight 153.4 lbs 07/15/2024 BMI 24.95 kg/m2 07/15/2024 Encounters Encounter Location Date Provider Diagnosis [facility] [address] [facility] [address] [place]aez [id number] 07/15/2024 Skinny Rivas Well adult exam Z00. 00 and Acute URI J06.9 [facility] [address] [place] [id number] 07/16/2024 Skinny Rivas [facility] adult exam Z00. 00 [facility] [address] [place]aez [id number] 07/17/2024 Skinny Rivas Assessments Encounter Date Diagnosis [...] End Date LACIE GREENFIELD [address] [place] [address] [id number] C [id number] 001 Ramos LOERA Self - patient is the insured Medical (General) History Surgical History Surgery Date(Month/Year) Cyst removal Dr. Sainz [facility] 07/11/2018
--- OUTSIDE RECORDS SUMMARY | 2025-03-08 09:40 | XMS_ITS | Clinical Summary ---
Author Organization Healthcare Address [address] [place] [address] Care Team Providers Care Pet Feeder Name Role Phone Unavailable Primary Care [...]
--- OUTSIDE RECORDS SUMMARY | 2025-03-08 09:40 | XMS_ITS | Encounter Summary ---
Author Organization Healthcare Address [address] [place] [address] Care Team Providers Care Lumber Straightened Name Role Phone Unavailable Primary Care Provider Unavailabl e Encounter Details Date Type Department Care Team (Late st Contact Info) Description 2023 Orders Only External Location [address] [place] [address] Provider, External Social History Tobacco Use Types [...]
[2025-03-08 10:05] LABS: Hematocrit 34.3 % (37.0-47.0); Hemoglobin 11.0 g/dL (12.2-16.2); Immature Granulocytes % 0.8 %; Mean Corpuscular HGB Conc 32.1 g/dL (31.8-35.4); Mean Corpuscular Hemoglobin 27.0 pg (27.0-31.2); Mean Corpuscular Volume 84.3 fl (81-99); Nucleated Red Blood Cells % 0 %; Platelet Count 174 K/mm3 (142-424); Red Blood Count 4.07 M/mm3 (4.20-5.40); Red Cell Distribution Width-SD 45.0 fL; White Blood Count 9.8 K/mm3 (4.8-10.8)
== END 2025-03-08 23:59 | disposition home or self-care (01) ==
LOC: LAB 09:37
PROVIDERS: PCP Family Medicine; Visit Provider Obstetrics & Gynecology
DX: D62 Acute posthemorrhagic anemia (principal); D50.9 Iron deficiency anemia, unspecified
CPT/HCPCS: 36415; 85025

== ENCOUNTER 2025-03-09 12:51 | Outpatient (CLI) | payer BC, SELFPAY ==
--- OUTSIDE RECORDS SUMMARY | 2023-12-18 11:15 | XMS_ITS ---
Author Organization Lani Address [facility] [address] [place] [phone] Care Team Providers Care Ground Equipment Mechanic Name Role Phone Skinny Rivas Primary Care Provider [phone] Elijah Edwards [phone] Results Component Value Reference Range Notes CBC Fingerstick (in house) Reviewed date:12/18/2023 04:12:52 PM Interpretation: Performing Lab: Notes/Report: wbc 10.4 3.5 - 10 lym 27.6 15 - 50 mid 6.0 2 - 15 gran 66.4 35 - 80 rbc 4.65 3.5 - 5.5 hgb 12.3 11.5 - 16.5 hct 38.2 35 - 55 mcv 82.2 75 - 100 mch 26.6 25 - 35 mchc 32.4 31 - 38 plat 229 100 - 400 REASON FOR VISIT CBC ONLY Encounters Encounter Location Date Provider Diagnosis [facility] [address] [place] [id number] 12/18/2023 Skinny Rivas Bleeding gums K06.8 Assessments Encounter Date Diagnosis (ICD Code) Assessment Notes Treatment Notes Treatment Clinical Notes Section Notes 12/18/2023 Bleeding gums (ICD-10 - K06.8) Plan Of Treatment No Information Progress Notes * Ramos DAUGHERTYDOB: 1995 (29 yo F)Acc No.[id number]:12/18/2023 Patient: Ramos GROSSMAN Provider: Andie Rivas M.D. :1995 A ge:28 Y S ex:Female Date:12/18/2023 Address[facility] [id number] Subjective: * Chief Complaints: * 1 . CBC ONLY. * Medical History: Objective: * Vitals: Assessment: * Assessment: 1. Andie russells - K06.8 (Primary) Plan: * Treatment: Value Reference Range w bc 10.4 3.5 - 10 * l ym 27.6 15 - 50 * m id 6.0 2 - 15 * g ran 66.4 35 - 80 * r bc 4.65 3.5 - 5.5 * h gb 12.3 11.5 - 16.5 * h ct 38.2 35 - 55 * m cv 82.2 75 - 100 * m ch 26.6 25 - 35 * m chc 32.4 31 - 38 * p lat 229 100 - 400 * Vickie Montez 12/18/2023 3:18:02 PM > , Provider reviewed results while patient in office. * Procedure Codes: 3 6416 CAPILLARY BLOOD DRAW, 67459 CBC WITH AUTO DIFF * Images: Billing Information: * Visit Code: * Procedure Codes: 54463 CAPILLARY BLOOD DRAW. 40403 CBC WITH AUTO DIFF. * Electronic signature of Deann Rivas MD on 03/09/2025 at 12:54 PM EDT Sign off status: Pending * Provider: Andie Rivas M.D. Date: 0 12/18/2023 Generated for Ilan bhatti/Erika/Pipoitting on: 0 03/09/2025 12:54 PM EDT
--- OUTSIDE RECORDS SUMMARY | 2024-07-15 09:45 | XMS_ITS ---
Author Organization [facility] Address [address] [facility] [address] [id number] Care Team Providers Care Supervisor Quality Control Name Role Phone [place] Skinny Primary Care Provider Elijah Edwards [phone] Allergies No Known Allergies Results Component Value [...] [address] [place] [address] [id number] 07/15/2024 Skinny Rivas Well adult exam Z00. [...] * Ramos DAUGHERTYDOB: 1995 (29 yo F)Acc No.[id number]:07/15/2024 Physical Patient: Ramos GROSSMAN Provider: Andie Rivas M.D. :1995 A ge:29 Y S ex:Female Date:07/15/2024 Address:[address] [place] [address] [id number] Subjective: * Chief Complaints: [...] Surgical History: C yst removal Dr. Sainz [facility] 07/11/2018. * Hospitalization/Major Diagno stic Procedure: [...] Procedure Codes: 3 6416 CAPILLARY BLOOD DRAW, 65934 CBC WITH AUTO DIFF * Follow Up: v ia phone to report progress * Images: Billing Information: * Visit Code: 46661 Preventive Care Est Pt 18-39. * Procedure Codes: 82218 CAPILLARY BLOOD DRAW. 78222 CBC WITH AUTO DIFF. * Electronic signature of Deann Rivas MD on 03/09/2025 at 12:54 PM EDT Sign off status: Pending * Provider: Andie Rivas M.D. Date: 1 09/15/2023 Generated for Ilan bhatti/Erika/Pipoitting on: 0 03/09/2025 12:54 PM EDT History and Physical Notes * [...]
--- OUTSIDE RECORDS SUMMARY | 2024-07-16 08:10 | XMS_ITS ---
Author Organization [facility] Address [address] [facility] [address] [place] [id number] Care Team Providers Care Wood Mill Supervisor Name Role Phone Rob Skinny Primary Care Provider Elijah Edwards [phone] Results Component Value Reference Range Notes P-Comprehensive Metabolic Pa colton (CMP) Reviewed date:07/17/2024 02:02:32 PM Interpretation:Normal Performing Lab: Notes/Report: Test performed by [facility] [address] [place] [address] , [address], [place] [address] Syed Salcedo MD, Surface Grinder CLIA: [id number] Sodium 143 135-145 mmol/L Potassium 4.4 3.5-5.3 [...] Interpretation:Normal Performing Lab: Notes/Report: Test performed by [email or web address], [address] , [place] [address] Syed Salcedo MD, Surface Grinder CLIA: [id number] Cholesterol 158 <200 mg/dL Triglycerides 50 <150 [...] Provider Diagnosis [facility] [address] [facility] [address] [place] [id number] 07/16/2024 Skinny Rivas [facility] adult exam Z00. 00 Assessments Encounter Date Diagnosis (ICD Code) Assessment Notes Treatment Notes Treatment Clinical Notes Section Notes 07/16/2024 [facility] adult exam (ICD-10 - Z00.00) Plan Of Treatment No Information Progress Notes * Ramos DAUGHERTYDOB: 1995 (29 yo F)Acc No.[id number]:07/16/2024 Patient: Ramos GROSSMAN Provider: Andie Rivas M.D. :1995 A ge:29 Y S ex:Female Date:07/16/2024 Address:[address] [place], [place] [id number] Subjective: * Chief Complaints: * 1 [...] * Vitals: Assessment: * Assessment: 1. W [facility] adult exam - Z00.00 (Primary) Plan: * [...] 1 PM > [facility] 07/17/2024 2:01:48 PM > Pt informed ?LAB: [...] 1 PM > LM for return call [facility] 07/17/2024 2:01:48 PM > Pt informed * Images: Billing Information: * Visit Code: * Procedure Codes: * Electronic signature of Deann Rivas MD on 03/09/2025 at 12:54 PM EDT Sign off status: Pending * Provider: Andie Rivas M.D. Date: 1 09/16/2023 Generated for Ilan bhatti/Erika/eTzahira on: 0 03/09/2025 12:54 PM EDT
--- OUTSIDE RECORDS SUMMARY | 2025-03-09 12:54 | XMS_ITS | Clinical Summary ---
Author Organization Healthcare Address [address] [place] [address] Care Team Providers Care Fur Blower Operator Name Role Phone Unavailable Primary Care Provider [...]
--- OUTSIDE RECORDS SUMMARY | 2025-03-09 12:54 | XMS_ITS | Encounter Summary ---
Author Organization Healthcare Address [address] [place] [address] Care Team Providers Care Dog Obedience Instructor Name Role Phone Unavailable Primary Care Provider Unavailabl e Encounter Details Date Type Department Care Team (Late st Contact Info) Description 2023 Orders Only External Location [address] [place] [address] Provider, External Social History Tobacco Use Types [...]
--- OUTSIDE RECORDS SUMMARY | 2025-03-09 12:54 | XMS_ITS | Patient Health Record ---
Author Organization [facility] Address [address] L[place]UB[place] Baez [id number] Care Team Providers Care Box Inspector Name Role Phone Rob Skinny Primary Care Provider Elijah Edwards Unavailable [phone] Allergies No Known Allergies Results Component Value Reference Range Notes P-Lipid Panel Reviewed date:07/17/2024 02:02:32 PM Interpretation:Normal Performing Lab: Notes/Report: Test performed by [employer], [email or web address] [facility]0 [facility] , [address], [place] [address] Syed Salcedo MD, Manager Utilization CLIA: [id number] Cholesterol 158 <200 mg/dL Triglycerides 50 <150 [...] Results: 92 Units: mg/dL % Change: - P-Comprehensive Metabolic Pa colton (CMP) Reviewed date:07/17/2024 02:02:32 PM Interpretation:Normal Performing Lab: Notes/Report: Test performed by [employer], [address] , [address], [place] [address] Syed Salcedo MD, Manager Utilization CLIA: [id number] Sodium 143 135-145 mmol/L Potassium 4.4 3.5-5.3 [...] 1.2 <0.2-1.2 mg/dL A/G Ratio 2.0 1.1-2.5 CBC Fingerstick (in house) Reviewed date:07/15/2024 02:32:11 [...] - 38 plat 211 100 - 400 Medications Medication SIG (Take, Route, Frequency, Duration) [...] W/U Status Risk Notes Problem Allergic rhinitis (54614365) ALLERGIC RHINITIS NOS (477.9) Active confirmed Problem Chronic rhinitis (85908832) Rhinitis, unspecified type (J31.0) Active confirmed Problem Glossodynia (94615166) Tongue sore (K14.6) Active confirmed Problem Hypertrophy of tonsils (52547467) Lingual tonsil hypertrophy (J35.1) Active confirmed Vital Signs Heart Rate 96 /min 07/15/2024 Blood pressure diastolic 68 mm Hg 07/15/2024 Height 65.75 in 07/15/2024 Blood pressure systolic 116 mm Hg 07/15/2024 Weight 153.4 lbs 07/15/2024 BMI 24.95 kg/m2 07/15/2024 Encounters Encounter Location Date Provider Diagnosis [facility] [address] [place] [id number] 07/15/2024 Skinny Rivas Well adult exam Z00. 00 and Acute URI J06.9 [facility] [address] [place]aez [id number] 07/16/2024 Skinny Rivas Well adult exam Z00. 00 [facility] [address] [place] Baez [id number] 07/17/2024 Skinny Rivas Assessments Encounter Date Diagnosis [...] End Date LACIE GREENFIELD [address] [place] [address] [id number] C [id number] 001 Ramos LOERA Self - patient is the insured Medical (General) History Surgical History Surgery Date(Month/Year) Cyst removal Dr. Sainz [facility] 07/11/2018
--- NOTE | 2025-03-09 12:56 | US_ITS ---
PROCEDURE: US OB BIOPHYSICAL PROFILE CLINICAL INDICATION: SGA COMPARISON: US US OB /MATERNAL DETAIL from 12/08/2024 FINDINGS: Transabdominal sonographic images of the uterus were obtained. From her established due date she is 33weeks 3days. The following parameters are obtained: Viable Fetus in the cephalic presentation with an anterior placenta grade 1. There are several placental lakes. Average ultrasound age is 33weeks 1day Estimated weight 2,059g, 4 lb 9 oz Average ultrasound age 33 weeks 1 day The cervix measures 3.89 cm. Measurements: heart Rate = 138bpm BPD = 33weeks 4days, 45 percentile HC = 32weeks 4days, 4 percent AC = 32weeks 1day, 17 percent FL = 34weeks 0 days, 55 percent HC/AC is 1.05 FL/BPD is 0.79 FL/AC is 0.24 25 percentile Amniotic fluid index: 13.13cm, MVP 4.04 cm Qualitative AFV:2 Breathing movements: 2 Gross Body Movements: 2 Tone: 2 Biophysical profile score: 8 Doppler evaluation of the umbilical artery: SD ratio: 2.4-2.67. normal Resistive index: 0.63 No obvious anomalies evident.Kidneys, stomach, bladder, four-chamber heart, three-vessel cord appear normal. IMPRESSION: 1. Viable fetus in the cephalic presentation with anterior placenta grade 1. There are multiple small placental lakes. 2. The fluid is within normal limits with an amniotic fluid index 13.13 cm, MVP 4.04 cm. 3. Biophysical profile is 8/8 with good breathing movement and movement seen. 4. SD ratio is normal 2.4-2.67. 5. There has been good interval growth with the fetus currently 25th percentile. 6. Limited anatomical scan appears normal. Dictated by: Etienne Kelly MD 03/09/2025 15:01 Etienne Kelly MD in [place] 03/09/2025 15:01
== END 2025-03-09 23:59 | disposition home or self-care (01) ==
LOC: RAD 12:51
PROVIDERS: PCP Family Medicine; Visit Provider Obstetrics & Gynecology
DX: O28.3 Abnormal ultrasonic finding on antenatal screening of mother (principal); O36.5930 Maternal care for other known or suspected poor fetal growth, third trimester, not applicable or unspecified; O09.893 Supervision of other high risk pregnancies, third trimester; O99.013 Anemia complicating pregnancy, third trimester; D50.9 Iron deficiency anemia, unspecified; Z36.2 Encounter for other antenatal screening follow-up; Z3A.33 33 weeks gestation of pregnancy
CPT/HCPCS: 76816; 76819; 76820

== ENCOUNTER 2025-03-31 10:00 | Outpatient (CLI) | payer BC, SELFPAY ==
--- OUTSIDE RECORDS SUMMARY | 2023-12-18 11:15 | XMS_ITS ---
Author Organization Lani Address [facility]10 [facility] [address] [place] [phone] Care Team Providers Care Shipping/Receiving Clerk Name Role Phone Skinny Rivas Primary Care Provider Elijah Edwards [phone] Results Component Value Reference Range Notes CBC [...] Encounter Location Date Provider Diagnosis [place] [facility] [address] [place] [id number] 12/18/2023 Skinny Rivas Bleeding gums K06.8 Assessments Encounter Date Diagnosis (ICD Code) Assessment Notes Treatment Notes Treatment Clinical Notes Section Notes 12/18/2023 Bleeding gums (ICD-10 - K06.8) Plan Of Treatment No Information Progress Notes * Ramos DAUGHERTYDOB: 1995 (29 yo F)Acc No.[id number]:12/18/2023 Patient: Ramos GROSSMAN Provider: Andie Rivas M.D. :1995 A ge:28 Y S ex:Female Date:12/18/2023 Address[facility] [id number] Subjective: * Chief Complaints: * 1 . [...] Procedure Codes: 3 6416 CAPILLARY BLOOD DRAW, 65279 CBC WITH AUTO DIFF * Images: Billing Information: * Visit Code: * Procedure Codes: 41063 CAPILLARY BLOOD DRAW. 65377 CBC WITH AUTO DIFF. * Electronic signature of Deann Rivas MD on 04/01/2025 at 01:14 PM EDT Sign off status: Pending * Provider: Andie Rivas M.D. Date: 0 12/18/2023 Generated for Ilan bhatti/Erika/Pipoitting on: 0 04/01/2025 01:14 PM EDT
--- OUTSIDE RECORDS SUMMARY | 2024-07-15 09:45 | XMS_ITS ---
Author Organization [facility] Address [address] [facility] [address] [place] [address] [id number] Care Team Providers Care Consumer Insights Specialist Name Role Phone [place] Skinny Primary Care Provider [phone] Elijah Edwards [phone] Allergies No Known Allergies Results Component Value [...] [address] [place] [address] [id number] 07/15/2024 Skinny Rivas Well adult exam Z00. [...] * Ramos DAUGHERTYDOB: 1995 (29 yo F)Acc No.[id number]:07/15/2024 Physical Patient: Ramos GROSSMAN Provider: Andie Rivas M.D. :1995 A ge:29 Y S ex:Female Date:07/15/2024 Address:[address] [place] [address] [id number] Subjective: * Chief Complaints: [...] Surgical History: C yst removal Dr. Sainz [facility] 07/11/2018. * Hospitalization/Major Diagno stic Procedure: [...] Procedure Codes: 3 6416 CAPILLARY BLOOD DRAW, 66623 CBC WITH AUTO DIFF * Follow Up: v ia phone to report progress * Images: Billing Information: * Visit Code: 73705 Preventive Care Est Pt 18-39. * Procedure Codes: 50746 CAPILLARY BLOOD DRAW. 18744 CBC WITH AUTO DIFF. * Electronic signature of Deann Rivas MD on 04/01/2025 at 01:14 PM EDT Sign off status: Pending * Provider: Andei Rivas M.D. Date: 09/15/2023 Generated for Ilan bhatti/Erika/Pipoitting on: 0 04/01/2025 01:14 PM EDT History and Physical Notes * [...]
--- OUTSIDE RECORDS SUMMARY | 2024-07-16 08:10 | XMS_ITS ---
Author Organization [facility] Address [address] [facility] [address] [place] [id number] Care Team Providers Care Tax Processor Name Role Phone Rob Skinny Primary Care Provider [phone] Elijah Edwards [phone] Results Component Value Reference Range Notes P-Comprehensive Metabolic Pa colton (CMP) Reviewed date:07/17/2024 02:02:32 PM Interpretation:Normal Performing Lab: Notes/Report: Test performed by [facility] [address] [place] [address] , [address], [place] [address] Syed Salcedo MD, Lacquer Pin Press Operator CLIA: [id number] Sodium 143 135-145 mmol/L Potassium 4.4 3.5-5.3 [...] Interpretation:Normal Performing Lab: Notes/Report: Test performed by [facility], [address] , [place] [address] Syed Salcedo MD, Lacquer Pin Press Operator CLIA: [id number] Cholesterol 158 <200 mg/dL Triglycerides 50 <150 [...] Provider Diagnosis [facility] [address] [facility] [address] [place] [id number] 07/16/2024 Skinny Rivas [facility] adult exam Z00. 00 Assessments Encounter Date Diagnosis (ICD Code) Assessment Notes Treatment Notes Treatment Clinical Notes Section Notes 07/16/2024 [facility] adult exam (ICD-10 - Z00.00) Plan Of Treatment No Information Progress Notes * Ramos DAUGHERTYDOB: 1995 (29 yo F)Acc No.[id number]:07/16/2024 Patient: Ramos GROSSMAN Provider: Andie Rivas M.D. :1995 A ge:29 Y S ex:Female Date:07/16/2024 Address:[address] [place], [place] [id number] Subjective: * Chief Complaints: * 1 [...] * Vitals: Assessment: * Assessment: 1. W [facility] adult exam - Z00.00 (Primary) Plan: * [...] 1 PM > [facility] 07/17/[facility] 2:01:48 PM > Pt informed ?LAB: [...] 1 PM > LM for [facility] 07/17/2024 2:01:48 PM > Pt informed * Images: Billing Information: * Visit Code: * Procedure Codes: * Electronic signature of Deann Rivas MD on 04/01/2025 at 01:14 PM EDT Sign off status: Pending * Provider: Andie Rivas M.D. Date: 1 09/16/2023 Generated for Ilan bhatti/Erika/Geovany on: 0 04/01/2025 01:14 PM EDT
--- OUTSIDE RECORDS SUMMARY | 2025-04-01 13:14 | XMS_ITS | Patient Health Record ---
Author Organization [facility] Address [address] [place] Baez [id number] Care Team Providers Care Staff Nurse Name Role Phone Rob Skinny Primary Care Provider [phone] Elijah Edwards Unavailable [phone] Allergies No Known Allergies Results Component Value Reference Range Notes P-Lipid Panel Reviewed date:07/17/2024 02:02:32 PM Interpretation:Normal Performing Lab: Notes/Report: Test performed by [employer], [facility]0 [facility] , [address], [place] [address] Syed Salcedo MD, Reexaminer CLIA: [id number] Cholesterol 158 <200 mg/dL Triglycerides 50 <150 [...] Interpretation:Normal Performing Lab: Notes/Report: Test performed by [employer], [address] , [address], [place] [address] Syed Salcedo MD, Reexaminer CLIA: [id number] Sodium 143 135-145 mmol/L Potassium 4.4 3.5-5.3 [...] W/U Status Risk Notes Problem Allergic rhinitis (39798007) ALLERGIC RHINITIS NOS (477.9) Active confirmed Problem Chronic rhinitis (64792432) Rhinitis, unspecified type (J31.0) Active confirmed Problem Glossodynia (68763553) Tongue sore (K14.6) Active confirmed Problem Hypertrophy of tonsils (03054790) Lingual tonsil hypertrophy (J35.1) Active confirmed Vital Signs Heart Rate 96 /min 07/15/2024 Blood pressure diastolic 68 mm Hg 07/15/2024 Height 65.75 in 07/15/2024 Blood pressure systolic 116 mm Hg 07/15/2024 Weight 153.4 lbs 07/15/2024 BMI 24.95 kg/m2 07/15/2024 Encounters Encounter Location Date Provider Diagnosis [facility] [address] [place] [id number] 07/15/2024 Skinny Rivas Well adult exam Z00. 00 and Acute URI J06.9 [facility] [address] [place]aez [id number] 07/16/2024 Skinny Rivas Well adult exam Z00. 00 [facility] [address] [place]aez [id number] 07/17/2024 Skinny Rivas Assessments Encounter Date Diagnosis [...] End Date LACIE GREENFIELD [address] [place] [address] [id number] C [id number] 001 Ramos LOERA Self - patient is the insured Medical (General) History Surgical History Surgery Date(Month/Year) Cyst removal Dr. Sainz [facility] 07/11/2018
--- OUTSIDE RECORDS SUMMARY | 2025-04-01 13:15 | XMS_ITS | Encounter Summary ---
Author Organization Healthcare Address [address] [place] [address] Care Team Providers Care Gut Cleaner Name Role Phone Unavailable Primary Care Provider Unavailabl e Encounter Details Date Type Department Care Team (Late st Contact Info) Description 2023 Orders Only External Location [address] [place] [address] Provider, External Social History Tobacco Use Types [...]
--- OUTSIDE RECORDS SUMMARY | 2025-04-01 13:15 | XMS_ITS | Clinical Summary ---
Author Organization Healthcare Address [address] [place] [address] Care Team Providers Care Sap Technical Developer Name Role Phone Unavailable Primary Care Provider [...]
== END 2025-03-31 23:59 | disposition home or self-care (01) ==
LOC: LAB.DROPOF 04-01 13:12
PROVIDERS: PCP Obstetrics & Gynecology; Visit Provider Obstetrics & Gynecology
DX: O09.893 Supervision of other high risk pregnancies, third trimester (principal); O99.013 Anemia complicating pregnancy, third trimester; D50.9 Iron deficiency anemia, unspecified; Z3A.00 Weeks of gestation of pregnancy not specified
CPT/HCPCS: 86403

== ENCOUNTER 2025-04-02 10:36 | Outpatient (CLI) | payer BC, SELFPAY ==
--- OUTSIDE RECORDS SUMMARY | 2023-12-18 11:15 | XMS_ITS ---
Author Organization Lani Address [facility] [address] [place] [id number] Care Team Providers Care Program Director Name Role Phone Skinny Rivas Primary Care Provider Elijah Edwards [phone] Results Component Value Reference Range Notes CBC [...] Encounter Location Date Provider Diagnosis [place] [facility] [address] [place] [id number] 12/18/2023 Skinny Rivas Bleeding gums K06.8 Assessments Encounter Date Diagnosis (ICD Code) Assessment Notes Treatment Notes Treatment Clinical Notes Section Notes 12/18/2023 Bleeding gums (ICD-10 - K06.8) Plan Of Treatment No Information Progress Notes * Ramos DAUGHERTYDOB: 1995 (29 yo F)Acc No.[id number]:12/18/2023 Patient: Ramos GROSSMAN Provider: Andie Rivas M.D. :1995 A ge:28 Y S ex:Female Date:12/18/2023 Address:[facility] [id number] Subjective: * Chief Complaints: * 1 . [...] Procedure Codes: 3 6416 CAPILLARY BLOOD DRAW, 07826 CBC WITH AUTO DIFF * Images: Billing Information: * Visit Code: * Procedure Codes: 62554 CAPILLARY BLOOD DRAW. 36854 CBC WITH AUTO DIFF. * Electronic signature of Deann Rivas MD on 04/02/2025 at 10:39 AM EDT Sign off status: Pending * Provider: Andie Rivas M.D. Date: 0 12/18/2023 Generated for Ilan bhatti/Erika/Pipoitting on: 0 04/02/2025 10:39 AM EDT
--- OUTSIDE RECORDS SUMMARY | 2024-07-15 09:45 | XMS_ITS ---
Author Organization [facility] Address [address] [facility] [address] [id number] Care Team Providers Care Collar Separator Name Role Phone [place] Skinny Primary Care Provider Elijah Edwards [phone] Allergies No Known Allergies Results Component Value [...] [address] [place] [id number] 07/15/2024 Skinny Rivas Well adult exam Z00. [...] * Ramos DAUGHERTYDOB: 1995 (29 yo F)Acc No.[id number]:07/15/2024 Physical Patient: Ramos GROSSMAN Provider: Andie Rivas M.D. :1995 A ge:29 Y S ex:Female Date:07/15/2024 Address:[address] [place] [address] [id number] Subjective: * Chief Complaints: [...] Surgical History: C yst removal Dr. Sainz [facility] 07/11/2018. * Hospitalization/Major Diagno stic Procedure: D [...] Procedure Codes: 3 6416 CAPILLARY BLOOD DRAW, 73404 CBC WITH AUTO DIFF * Follow Up: v ia phone to report progress * Images: Billing Information: * Visit Code: 39704 Preventive Care Est Pt 18-39. * Procedure Codes: 51089 CAPILLARY BLOOD DRAW. 08719 CBC WITH AUTO DIFF. * Electronic signature of Deann Rivas MD on 04/02/2025 at 10:39 AM EDT Sign off status: Pending * Provider: Andie Rivas M.D. Date: 1 09/15/2023 Generated for Ilan bhatti/Erika/Pipoitting on: 0 04/02/2025 10:39 AM EDT History and Physical Notes * [...]
--- OUTSIDE RECORDS SUMMARY | 2024-07-16 08:10 | XMS_ITS ---
Author Organization [facility] Address [address] [facility] [address] [place] Baez [id number] Care Team Providers Care Development Intern Name Role Phone Rob Skinny Primary Care Provider Elijah Edwards [phone] Results Component Value Reference Range Notes P-Comprehensive Metabolic Pa colton (CMP) Reviewed date:07/17/2024 02:02:32 PM Interpretation:Normal Performing Lab: Notes/Report: Test performed by [email or web address] [address] [place] [address] , [address], [place] [address] Syed Salcedo MD, Soil Conservation Teacher CLIA: [id number] Sodium 143 135-145 mmol/L Potassium 4.4 3.5-5.3 [...] Interpretation:Normal Performing Lab: Notes/Report: Test performed by [facility], [address]ileth [address]olley , [place] [address] Syed Salcedo MD, Soil Conservation Teacher CLIA: [id number] Cholesterol 158 <200 mg/dL Triglycerides 50 <150 [...] Provider Diagnosis [facility] [address] [facility] [address] [place]ae[place] [id number] 07/16/2024 Skinny Rivas [facility] adult exam Z00. 00 Assessments Encounter Date Diagnosis (ICD Code) Assessment Notes Treatment Notes Treatment Clinical Notes Section Notes 07/16/2024 [facility] adult exam (ICD-10 - Z00.00) Plan Of Treatment No Information Progress Notes * Ramos DAUGHERTYDOB: 1995 (29 yo F)Acc No.[id number]:07/16/2024 Patient: Ramos GROSSMAN Provider: Andie Rivas M.D. :1995 A ge:29 Y S ex:Female Date:07/16/2024 Address:[address] [place], [place] [id number] Subjective: * Chief Complaints: * 1 [...] * Vitals: Assessment: * Assessment: 1. W [facility] adult exam - Z00.00 (Primary) [...] 1 PM > [facility] 07/17/2024 2:01:48 PM > Pt informed [...] 1 PM > LM for return [facility] 07/17/2024 2:01:48 PM > Pt informed * Images: Billing Information: * Visit Code: * Procedure Codes: * Electronic signature of Deann Rivas MD on 04/02/2025 at 10:39 AM EDT Sign off status: Pending * Provider: Andie Rivas M.D. Date: 1 09/16/2023 Generated for Ilan bhatti/Erika/Geovany on: 0 04/02/2025 10:39 AM EDT
--- OUTSIDE RECORDS SUMMARY | 2025-04-02 10:39 | XMS_ITS | Patient Health Record ---
Author Organization [facility] Address [address] [place] Baez [id number] Care Team Providers Care Funeral Driver Name Role Phone Rob Skinny Primary Care Provider [phone] Elijah Edwards Unavailable [phone] Allergies No Known Allergies Results Component Value Reference Range Notes P-Lipid Panel Reviewed date:07/17/2024 02:02:32 PM Interpretation:Normal Performing Lab: Notes/Report: Test performed by [employer], [facility]0 [facility] , [address], [place] [address] Syed Salcedo MD, Material Dispatcher CLIA: [id number] Cholesterol 158 <200 mg/dL Triglycerides 50 <150 [...] Interpretation:Normal Performing Lab: Notes/Report: Test performed by [employer], [address] , [address], [place] [address] Syed Salcedo MD, Material Dispatcher CLIA: [id number] Sodium 143 135-145 mmol/L Potassium 4.4 3.5-5.3 [...] W/U Status Risk Notes Problem Allergic rhinitis (05245690) ALLERGIC RHINITIS NOS (477.9) Active confirmed Problem Chronic rhinitis (39973518) Rhinitis, unspecified type (J31.0) Active confirmed Problem Glossodynia (91442548) Tongue sore (K14.6) Active confirmed Problem Hypertrophy of tonsils (37085429) Lingual tonsil hypertrophy (J35.1) Active confirmed Vital Signs Heart Rate 96 /min 07/15/2024 Blood pressure diastolic 68 mm Hg 07/15/2024 Height 65.75 in 07/15/2024 Blood pressure systolic 116 mm Hg 07/15/2024 Weight 153.4 lbs 07/15/2024 BMI 24.95 kg/m2 07/15/2024 Encounters Encounter Location Date Provider Diagnosis [facility] [address] [place]ae[place] [id number] 07/15/2024 Skinny Rivas Well adult exam Z00. 00 and Acute URI J06.9 [facility] [address] [place]aez [id number] 07/16/2024 Skinny Rivas Well adult exam Z00. 00 [facility] [address] [place]aez [id number] 07/17/2024 Skinny Rivas Assessments Encounter Date Diagnosis [...] End Date LACIE GREENFIELD [address] [place] [address] [id number] C [id number] 001 Ramos LOERA Self - patient is the insured Medical (General) History Surgical History Surgery Date(Month/Year) Cyst removal Dr. Sainz [facility] 07/11/2018
--- OUTSIDE RECORDS SUMMARY | 2025-04-02 10:40 | XMS_ITS | Encounter Summary ---
Author Organization Healthcare Address [address] [place] [address] Care Team Providers Care Hall Coordinator Name Role Phone Unavailable Primary Care Provider Unavailabl e Encounter Details Date Type Department Care Team (Late st Contact Info) Description 2023 Orders Only External Location [address] [place] [address] Provider, External Social History Tobacco Use Types [...]
--- OUTSIDE RECORDS SUMMARY | 2025-04-02 10:40 | XMS_ITS | Clinical Summary ---
Author Organization Healthcare Address [address] [place] [address] Care Team Providers Care Counterintelligence Analyst Name Role Phone Unavailable Primary Care Provider [...]
[2025-04-02 11:33] LABS: Hematocrit 35.3 % (37.0-47.0); Hemoglobin 11.2 g/dL (12.2-16.2); Mean Corpuscular HGB Conc 31.7 g/dL (31.8-35.4); Mean Corpuscular Hemoglobin 26.4 pg (27.0-31.2); Mean Corpuscular Volume 83.3 fl (81-99); Platelet Count 197 K/mm3 (142-424); Red Blood Count 4.24 M/mm3 (4.20-5.40); White Blood Count 10.1 K/mm3 (4.8-10.8)
[2025-04-02 11:57] LABS: Iron 64 ug/dL (37-170)
[2025-04-02 12:09] LABS: Total Iron Binding Capacity 559 ug/dL (265-497)
[2025-04-02 12:31] LABS: Ferritin 6.59 ng/ml (6.24-137)
[2025-04-02 13:23] LABS: Hypochromasia 1+; Total Cells Counted 100
== END 2025-04-02 23:59 | disposition home or self-care (01) ==
PROVIDERS: PCP Family Medicine; Visit Provider Obstetrics & Gynecology
DX: D50.9 Iron deficiency anemia, unspecified (principal)
CPT/HCPCS: 36415; 82728; 83540; 83550; 85007; 85014; 85018; 85048; 85049

== ENCOUNTER 2025-04-07 11:13 | Outpatient (CLI) | payer BC, SELFPAY ==
--- OUTSIDE RECORDS SUMMARY | 2023-12-18 11:15 | XMS_ITS ---
Author Organization Lani Address [facility] [address] [place] [phone] Care Team Providers Care Strapper Name Role Phone Skinny Rivas Primary Care Provider Elijah Edwards [phone] Results Component Value Reference Range Notes CBC [...] Encounter Location Date Provider Diagnosis [place] [facility] [address] [place] [id number] 12/18/2023 Skinny Rivas Bleeding gums K06.8 Assessments Encounter Date Diagnosis (ICD Code) Assessment Notes Treatment Notes Treatment Clinical Notes Section Notes 12/18/2023 Bleeding gums (ICD-10 - K06.8) Plan Of Treatment No Information Progress Notes * Ramos DAUGHERTYDOB: 1995 (29 yo F)Acc No.[id number]:12/18/2023 Patient: Ramos GROSSMAN Provider: Andie Rivas M.D. :1995 A ge:28 Y S ex:Female Date:12/18/2023 Address:[facility] [place] [id number] Subjective: * Chief Complaints: * 1 . [...] Procedure Codes: 3 6416 CAPILLARY BLOOD DRAW, 74125 CBC WITH AUTO DIFF * Images: Billing Information: * Visit Code: * Procedure Codes: 96274 CAPILLARY BLOOD DRAW. 05974 CBC WITH AUTO DIFF. * Electronic signature of Deann Rivas MD on 04/07/2025 at 11:16 AM EDT Sign off status: Pending * Provider: Andie Rivas M.D. Date: 0 12/18/2023 Generated for Ilan bhatti/Erika/Pipoitting on: 0 04/07/2025 11:16 AM EDT
--- OUTSIDE RECORDS SUMMARY | 2024-07-15 09:45 | XMS_ITS ---
Author Organization [facility] Address [address] [facility] [address] [id number] Care Team Providers Care Director Of Industrial Relations Name Role Phone [place] Skinny Primary Care Provider Elijah Edwards [phone] Allergies No Known Allergies Results Component Value [...] [address] [id number] 07/15/2024 Skinny Rivas Well adult exam Z00. [...] * Ramos DAUGHERTYDOB: 1995 (29 yo F)Acc No.[id number]:07/15/2024 Physical Patient: Ramos GROSSMAN Provider: Andie Rivas M.D. :1995 A ge:29 Y S ex:Female Date:07/15/2024 Address:[address] [place] [address] [id number] Subjective: * Chief Complaints: [...] Surgical History: C yst removal Dr. Sainz [facility] 07/11/2018. * Hospitalization/Major Diagno stic Procedure: [...] Procedure Codes: 3 6416 CAPILLARY BLOOD DRAW, 08366 CBC WITH AUTO DIFF * Follow Up: v ia phone to report progress * Images: Billing Information: * Visit Code: 95774 Preventive Care Est Pt 18-39. * Procedure Codes: 55009 CAPILLARY BLOOD DRAW. 72071 CBC WITH AUTO DIFF. * Electronic signature of Deann Rivas MD on 04/07/2025 at 11:16 AM EDT Sign off status: Pending * Provider: Andie Rivas M.D. Date: 1 09/15/2023 Generated for Ilan bhatti/Erika/Pipoitting on: 0 04/07/2025 11:16 AM EDT History and Physical Notes * [...]
--- OUTSIDE RECORDS SUMMARY | 2024-07-16 08:10 | XMS_ITS ---
Author Organization [facility] Address [address] [facility] [address] [place] [id number] Care Team Providers Care Circuit Board Drafter Name Role Phone Rob Skinny Primary Care Provider Elijah Edwards [phone] Results Component Value Reference Range Notes P-Comprehensive Metabolic Pa colton (CMP) Reviewed date:07/17/2024 02:02:32 PM Interpretation:Normal Performing Lab: Notes/Report: Test performed by [facility] [address] [place] [address] , [address], [place] [address] Syed Salcedo MD, Skiver Blockers CLIA: [id number] Sodium 143 135-145 mmol/L Potassium 4.4 3.5-5.3 [...] Interpretation:Normal Performing Lab: Notes/Report: Test performed by [facility], [address] , [place] [address] Syed Salcedo MD, Skiver Blockers CLIA: [id number] Cholesterol 158 <200 mg/dL Triglycerides 50 <150 [...] Provider Diagnosis [facility] [address] [facility] [address] [place] [id number] 07/16/2024 Skinny Rivas [facility] adult exam Z00. 00 Assessments Encounter Date Diagnosis (ICD Code) Assessment Notes Treatment Notes Treatment Clinical Notes Section Notes 07/16/2024 [facility] adult exam (ICD-10 - Z00.00) Plan Of Treatment No Information Progress Notes * Ramos DAUGHERTYDOB: 1995 (29 yo F)Acc No.[id number]:07/16/2024 Patient: Ramos GROSSMAN Provider: Andie Rivas M.D. :1995 A ge:29 Y S ex:Female Date:07/16/2024 Address:[address] [place], [place] [id number] Subjective: * Chief Complaints: * 1 [...] * Vitals: Assessment: * Assessment: 1. W [facility] adult exam - Z00.00 (Primary) Plan: [...] 1 PM > [facility]/17/[facility] 2:01:48 PM > Pt informed ?LAB: [...] 1 PM > [facility] 07/17/2024 2:01:48 PM > Pt informed * Images: Billing Information: * Visit Code: * Procedure Codes: * Electronic signature of Deann Rivas MD on 04/07/2025 at 11:16 AM EDT Sign off status: Pending * Provider: Andie Rivas M.D. Date: 1 09/16/2023 Generated for Ilan bhatti/Erika/Geovany on: 0 04/07/2025 11:16 AM EDT
--- OUTSIDE RECORDS SUMMARY | 2025-04-07 11:16 | XMS_ITS | Patient Health Record ---
Author Organization [facility] Address [address] [place]aez [id number] Care Team Providers Care Stain Sprayer Name Role Phone Skinny Rivas Primary Care Provider Elijah Edwards Unavailable [phone] Allergies No Known Allergies Results Component Value [...] Interpretation:Normal Performing Lab: Notes/Report: Test performed by [facility] , [address], [place] [address] Syed Salcedo MD, Tub Mender CLIA: [id number] Sodium 143 135-145 mmol/L Potassium 4.4 3.5-5.3 [...] Performing Lab: Notes/Report: Test performed by [employer], [address] , [facility], [place] [address] Syed Salcedo MD, Tub Mender CLIA: [id number] Cholesterol 158 <200 mg/dL Triglycerides 50 <150 [...] W/U Status Risk Notes Problem Allergic rhinitis (58718073) ALLERGIC RHINITIS NOS (477.9) Active confirmed Problem Chronic rhinitis (05840391) Rhinitis, unspecified type (J31.0) Active confirmed Problem Glossodynia (45511864) Tongue sore (K14.6) Active confirmed Problem Hypertrophy of tonsils (59095243) Lingual tonsil hypertrophy (J35.1) Active confirmed Vital Signs Heart Rate 96 /min 07/15/2024 Blood pressure diastolic 68 mm Hg 07/15/2024 Height 65.75 in 07/15/2024 Blood pressure systolic 116 mm Hg 07/15/2024 Weight 153.4 lbs 07/15/2024 BMI 24.95 kg/m2 07/15/2024 Encounters Encounter Location Date Provider Diagnosis [facility] [address] [facility] [address] [place]aez [id number] 07/15/2024 Skinny Rivas Well adult exam Z00. 00 and Acute URI J06.9 [facility] [address] [place]aez [id number] 07/16/2024 Skinny Rivas Well adult exam Z00. 00 [facility] [address] [place]aez [id number] 07/17/2024 Skinny Rivas Assessments Encounter Date Diagnosis [...] End Date LACIE GREENFIELD [address] [place] [address] [id number] C [id number] 001 Ramos LOERA Self - patient is the insured Medical (General) History Surgical History Surgery Date(Month/Year) Cyst removal Dr. Sainz [facility] 07/11/2018
--- OUTSIDE RECORDS SUMMARY | 2025-04-07 11:17 | XMS_ITS | Encounter Summary ---
Author Organization Healthcare Address [address] [place] [address] Care Team Providers Care Mobile Application Architect Name Role Phone Unavailable Primary Care Provider Unavailabl e Encounter Details Date Type Department Care Team (Late st Contact Info) Description 2023 Orders Only External Location [address] [place] [address] Provider, External Social History Tobacco Use Types [...]
--- OUTSIDE RECORDS SUMMARY | 2025-04-07 11:17 | XMS_ITS | Clinical Summary ---
Author Organization Healthcare Address [address] [place] [address] Care Team Providers Care Squirrel Worker Name Role Phone Unavailable Primary Care Provider [...]
--- NOTE | 2025-04-07 11:30 | US_ITS ---
PROCEDURE: US OB BIOPHYSICAL PROFILE CLINICAL INDICATION: SGA COMPARISON: US US OB /MATERNAL DETAIL from 12/08/2024 US US OB BIOPHYSICAL PROFILE from 03/09/2025 FINDINGS: Transabdominal sonographic images of the uterus were obtained. From her established due date she is 37weeks 4days. The following parameters are obtained: Viable Fetus in the cephalic presentation with an anterior placenta grade 2. Are multiple placental lakes seen. Average ultrasound age is 36weeks 2days Estimated weight 2,838g, 6 lb 4 oz Cervix measures 3.54 cm in length. Measurements: heart Rate = 134bpm BPD = 36weeks 4days, 40 percentile HC = 36weeks 0 days, 5 percent AC = 35weeks 5days, 14 percent FL = 36weeks 6days, 32 percentile HC/AC is 1.01 FL/BPD is 0.8 FL/AC is 0.23 22 percentile Amniotic fluid index: 7.76cm, MVP 3.39 cm. Qualitative AFV:2 Breathing movements: 2 Gross Body Movements: 2 Tone: 2 Biophysical profile score: 8 Doppler evaluation of the umbilical artery: SD ratio: 2.69-2.83, normal Resistive index: 0.63 No obvious anomalies evident.Kidneys, profile, stomach, bladder, four-chamber heart, three-vessel cord appear normal. IMPRESSION: 1. Viable fetus in the cephalic presentation with an anterior placenta grade 2. There are multiple placental lakes seen within the placenta. 2. The fluid is within normal limits with an amniotic fluid index 7.76 cm, MVP 3.39 cm. Subjectively the fluid appears somewhat low. Would follow-up with another biophysical profile and fluid level next week. 3. Biophysical profile is 8/8 with good breathing movement and movement seen. 4. SD ratio is normal 2.69-2.83. 5. There has been good interval growth with the fetus currently 22nd percentile. 6. Limited anatomical scan appears normal. Dictated by: Etienne Kelly MD 04/07/2025 14:10 Etienne Kelly MD in [place] 04/07/2025 14:10
== END 2025-04-07 23:59 | disposition home or self-care (01) ==
LOC: RAD 11:14
PROVIDERS: PCP Family Medicine; Visit Provider Obstetrics & Gynecology
DX: O28.3 Abnormal ultrasonic finding on antenatal screening of mother (principal); O99.013 Anemia complicating pregnancy, third trimester; O36.5930 Maternal care for other known or suspected poor fetal growth, third trimester, not applicable or unspecified; O09.893 Supervision of other high risk pregnancies, third trimester; D50.9 Iron deficiency anemia, unspecified; Z36.2 Encounter for other antenatal screening follow-up; Z3A.37 37 weeks gestation of pregnancy
CPT/HCPCS: 76816; 76819; 76820

== ENCOUNTER 2025-04-09 10:57 | Outpatient (CLI) | payer BC, SELFPAY ==
--- OUTSIDE RECORDS SUMMARY | 2023-12-18 11:15 | XMS_ITS ---
Author Organization Lani Address [facility] [address] [place] [phone] Care Team Providers Care Poultice Machine Operator Name Role Phone Skinny Rivas Primary Care Provider [phone] Elijah Edwards [phone] Results Component Value Reference Range Notes CBC [...] Encounter Location Date Provider Diagnosis [place] [facility] [address] [place] [id number] 12/18/2023 Skinny Rivas Bleeding gums K06.8 Assessments Encounter Date Diagnosis (ICD Code) Assessment Notes Treatment Notes Treatment Clinical Notes Section Notes 12/18/2023 Bleeding gums (ICD-10 - K06.8) Plan Of Treatment No Information Progress Notes * Ramos DAUGHERTYDOB: 1995 (29 yo F)Acc No.[id number]:12/18/2023 Patient: Ramos GROSSMAN Provider: Andie Rivas M.D. :1995 A ge:28 Y S ex:Female Date:12/18/2023 Address:[facility] [place] [id number] Subjective: * Chief Complaints: * 1 . [...] Procedure Codes: 3 6416 CAPILLARY BLOOD DRAW, 97351 CBC WITH AUTO DIFF * Images: Billing Information: * Visit Code: * Procedure Codes: 65988 CAPILLARY BLOOD DRAW. 65729 CBC WITH AUTO DIFF. * Electronic signature of Deann Rivas MD on 04/09/2025 at 11:05 AM EDT Sign off status: Pending * Provider: Andie Rivas M.D. Date: 0 12/18/2023 Generated for Ilan bhatti/Erika/Pipoitting on: 0 04/09/2025 11:05 AM EDT
--- OUTSIDE RECORDS SUMMARY | 2024-07-15 09:45 | XMS_ITS ---
Author Organization [facility] Address [address] [facility] [address] [id number] Care Team Providers Care Equipment Scheduler Name Role Phone [place] Skinny Primary Care Provider Elijah Edwards [phone] Allergies No Known Allergies Results Component Value [...] Twice a day 07/15/2024 Active Vital Signs Weight 153.4 lbs 07/15/2024 Blood pressure systolic 116 mm Hg 07/15/20 24 Blood pressure diastolic 68 mm Hg 024 Heart Rate 96 /min 07/15/2024 Height 65.75 in 07/15/2024 BMI 24.95 kg/m2 07/15/2024 Encounters Encounter Location Date Provider Diagnosis [facility] [address] [place] [address] [id number] 07/15/2024 Skinny Rivas Well adult exam Z00. [...] * Ramos DAUGHERTYDOB: 1995 (29 yo F)Acc No.[id number]:07/15/2024 Physical Patient: Ramos GROSSMAN Provider: Andie Rivas M.D. :1995 A ge:29 Y S ex:Female Date:07/15/2024 Address:[address] [place] [address] [id number] Subjective: * Chief Complaints: [...] Surgical History: C yst removal Dr. Sainz [facility] 07/11/2018. * Hospitalization/Major Diagno stic Procedure: [...] Procedure Codes: 3 6416 CAPILLARY BLOOD DRAW, 44668 CBC WITH AUTO DIFF * Follow Up: v ia phone to report progress * Images: Billing Information: * Visit Code: 78720 Preventive Care Est Pt 18-39. * Procedure Codes: 78968 CAPILLARY BLOOD DRAW. 32081 CBC WITH AUTO DIFF. * Electronic signature of Deann Rivas MD on 04/09/2025 at 11:05 AM EDT Sign off status: Pending * Provider: Andie Rivas M.D. Date: 09/15/2023 Generated for Ilan bhatti/Erika/Pipoitting on: 0 04/09/2025 11:05 AM EDT History and Physical Notes * [...]
--- OUTSIDE RECORDS SUMMARY | 2024-07-16 08:10 | XMS_ITS ---
Author Organization [facility] Address [address] [facility] [address] [place] Baez [id number] Care Team Providers Care Spiral Machine Operator Name Role Phone Rob Skinny Primary Care Provider [phone] Elijah Edwards [phone] Results Component Value Reference Range Notes P-Comprehensive Metabolic Pa colton (CMP) Reviewed date:07/17/2024 02:02:32 PM Interpretation:Normal Performing Lab: Notes/Report: Test performed by [facility] [address] [place] [address] , [address], [place] [address] Syed Salcedo MD, Honing Machine Operator Semiautomatic CLIA: [id number] Sodium 143 135-145 mmol/L Potassium 4.4 3.5-5.3 [...] Interpretation:Normal Performing Lab: Notes/Report: Test performed by [facility], [address] , [place] [address] Syed Salcedo MD, Honing Machine Operator Semiautomatic CLIA: [id number] Cholesterol 158 <200 mg/dL Triglycerides 50 <150 [...] Provider Diagnosis [facility] [address] [facility] [address] [place] [id number] 07/16/2024 Skinny Rivas [facility] adult exam Z00. 00 Assessments Encounter Date Diagnosis (ICD Code) Assessment Notes Treatment Notes Treatment Clinical Notes Section Notes 07/16/2024 [facility] adult exam (ICD-10 - Z00.00) Plan Of Treatment No Information Progress Notes * Ramos DAUGHERTYDOB: 1995 (29 yo F)Acc No.[id number]:07/16/2024 Patient: Ramos GROSSMAN Provider: Andie Rivas M.D. :1995 A ge:29 Y S ex:Female Date:07/16/2024 Address:[address] [place], [place] [id number] Subjective: * Chief Complaints: * 1 [...] * Vitals: Assessment: * Assessment: 1. W [facility] adult exam - Z00.00 (Primary) [...] 1 PM > LM for return call [facility] 07/17/2024 2:01:48 PM > Pt informed [...] T riglycerides 50 <150 - mg/dL * Yossi Montezira 07/17/2024 1:33:3 1 PM > LM for return call [facility] 07/17/2024 2:01:48 PM > Pt informed * Images: Billing Information: * Visit Code: * Procedure Codes: * Electronic signature of Deann Rivas MD on 04/09/2025 at 11:05 AM EDT Sign off status: Pending * Provider: Andie Rivas M.D. Date: 1 09/16/2023 Generated for Ilan bhatti/Erika/Geovany on: 0 04/09/2025 11:05 AM EDT
--- OUTSIDE RECORDS SUMMARY | 2025-04-09 11:05 | XMS_ITS | Patient Health Record ---
Author Organization [facility] Address [address] [place]aez [id number] Care Team Providers Care Individual Pension Adviser Name Role Phone Skinny Rivas Primary Care Provider [phone] Elijah Edwards Unavailable [phone] Allergies No Known Allergies Results Component Value [...] Interpretation:Normal Performing Lab: Notes/Report: Test performed by [employer] [facility]0 [facility] , [address], [place] [address] Syed Salcedo MD, Data Architect CLIA: [id number] Sodium 143 135-145 mmol/L Potassium 4.4 3.5-5.3 [...] Interpretation:Normal Performing Lab: Notes/Report: Test performed by [employer], [address] , [facility], [place] [address] Syed Salcedo MD, Data Architect CLIA: [id number] Cholesterol 158 <200 mg/dL Triglycerides 50 <150 [...] W/U Status Risk Notes Problem Allergic rhinitis (26584256) ALLERGIC RHINITIS NOS (477.9) Active confirmed Problem Chronic rhinitis (40254406) Rhinitis, unspecified type (J31.0) Active confirmed Problem Glossodynia (23929376) Tongue sore (K14.6) Active confirmed Problem Hypertrophy of tonsils (28222759) Lingual tonsil hypertrophy (J35.1) Active confirmed Vital Signs Heart Rate 96 /min 07/15/2024 Blood pressure diastolic 68 mm Hg 07/15/2024 Height 65.75 in 07/15/2024 Blood pressure systolic 116 mm Hg 07/15/2024 Weight 153.4 lbs 07/15/2024 BMI 24.95 kg/m2 07/15/2024 Encounters Encounter Location Date Provider Diagnosis [facility] [address] [facility] [address] [place]aez [id number] 07/15/2024 Skinny Rivas Well adult exam Z00. 00 and Acute URI J06.9 [facility] [address] [place]z [id number] 07/16/2024 Skinny Rivas Well adult exam Z00. 00 [facility] [address] [place]aez [id number] 07/17/2024 Skinny Rivas Assessments Encounter Date Diagnosis [...] End Date LACIE GREENFIELD [address] [place] [address] [id number] C [id number] 001 Ramos LOERA Self - patient is the insured Medical (General) History Surgical History Surgery Date(Month/Year) Cyst removal Dr. Sainz [facility] 07/11/2018
--- OUTSIDE RECORDS SUMMARY | 2025-04-09 11:06 | XMS_ITS | Clinical Summary ---
Author Organization Healthcare Address [address] [place] [address] Care Team Providers Care Diversified Crops I Farmworker Name Role Phone Unavailable Primary Care Provider [...]
--- OUTSIDE RECORDS SUMMARY | 2025-04-09 11:06 | XMS_ITS | Encounter Summary ---
Author Organization Healthcare Address [address] [place] [address] Care Team Providers Care Nurse Instructor Name Role Phone Unavailable Primary Care Provider Unavailabl e Encounter Details Date Type Department Care Team (Late st Contact Info) Description 2023 Orders Only External Location [address] [place] [address] Provider, External Social History Tobacco Use Types [...]
[2025-04-09 11:18] VITALS: BP 114/74; PULSE 88; RESP 18; TEMP 36.2; O2SAT 97
[2025-04-09] MEDS: IRON SUCROSE COMPLEX 200 MG in 0.9 % SODIUM CHLORIDE 100 ML 220 MG IV (11:18)
[2025-04-09 12:05] VITALS: BP 125/76; PULSE 87; RESP 18; O2SAT 97
[2025-04-09 13:32] LABS: Folate 14.00 ng/mL
== END 2025-04-09 12:05 | disposition home or self-care (01) ==
LOC: INF 11:00
PROVIDERS: PCP Family Medicine; Visit Provider Obstetrics & Gynecology
DX: O26.899 Other specified pregnancy related conditions, unspecified trimester (principal); O99.019 Anemia complicating pregnancy, unspecified trimester; D64.9 Anemia, unspecified; Z3A.00 Weeks of gestation of pregnancy not specified
CPT/HCPCS: 82746; 96365; J1756

== ENCOUNTER 2025-04-13 13:05 | Outpatient (CLI) | payer BC, SELFPAY ==
--- OUTSIDE RECORDS SUMMARY | 2023-12-18 11:15 | XMS_ITS ---
Author Organization Lani Address [facility] [address] [place] [phone] Care Team Providers Care Charge Weigher Name Role Phone Skinny Rivas Primary Care Provider [phone] Elijah Edwards [phone] Results Component Value Reference Range Notes CBC [...] Encounter Location Date Provider Diagnosis [place] [facility] [address] [place] [id number] 12/18/2023 Skinny Rivas Bleeding gums K06.8 Assessments Encounter Date Diagnosis (ICD Code) Assessment Notes Treatment Notes Treatment Clinical Notes Section Notes 12/18/2023 Bleeding gums (ICD-10 - K06.8) Plan Of Treatment No Information Progress Notes * Ramos DAUGHERTYDOB: 1995 (29 yo F)Acc No.[id number]:12/18/2023 Patient: Ramos GROSSMAN Provider: Andie Rivas M.D. :1995 A ge:28 Y S ex:Female Date:12/18/2023 [facility] [id number] Subjective: * Chief Complaints: * 1 . [...] Procedure Codes: 3 6416 CAPILLARY BLOOD DRAW, 74130 CBC WITH AUTO DIFF * Images: Billing Information: * Visit Code: * Procedure Codes: 94721 CAPILLARY BLOOD DRAW. 99063 CBC WITH AUTO DIFF. * Electronic signature of Deann Rivas MD on 04/13/2025 at 01:12 PM EDT Sign off status: Pending * Provider: Andie Rivas M.D. Date: 0 12/18/2023 Generated for Ilan bhatti/Erika/Pipoitting on: 0 04/13/2025 01:12 PM EDT
--- OUTSIDE RECORDS SUMMARY | 2024-07-15 09:45 | XMS_ITS ---
Author Organization [facility] Address [address] [facility] [address] [id number] Care Team Providers Care Drying Rack Changer Name Role Phone [place] Skinny Primary Care Provider [phone] Elijah Edwards [phone] Allergies No Known Allergies Results Component Value Reference Range Notes CBC Fingerstick (in house) Reviewed date:07/15/2024 02:32:11 PM Interpretation: Performing Lab: Notes/Report: wbc 7.7 3.5 - 10 lym 29.6% 15 - 50 mid 7.5% 2 - 15 gran 62.9% 35 - 80 rbc 4.39 3.5 - 5.5 hgb 12.4 11.5 - 16.5 hct 36.7 35 - 55 mcv 83.5 75 - 100 mch 28.2 25 - 35 mchc 33.8 31 - 38 plat 211 100 - 400 REASON FOR VISIT gen cpx & labs Medications Medication SIG (Take, Route, Frequency, Duration) Notes Start Date End Date Status Afrin Allergy Sinus 0.05 % 4 sprays (2 s prays in each nostril) Nasally Twice a day 07/15/2024 Active Astepro 205.5 MCG/SPRAY 2 sprays (1 spra y in each nostril) Nasally Twice a day 07/15/2024 Active Vital Signs Blood pressure systolic 116 mm Hg 07/15/20 24 Blood pressure diastolic 68 mm Hg 024 Heart Rate 96 /min 07/15/2024 Height 65.75 in 07/15/2024 Weight 153.4 lbs 07/15/2024 BMI 24.95 kg/m2 07/15/2024 Encounters Encounter Location Date Provider Diagnosis [facility] [address] [id number] 07/15/2024 Skinny Rivas Well adult exam Z00. 00 and Acute URI J06.9 Assessments Encounter Date Diagnosis (ICD Code) Assessment Notes Treatment Notes Treatment Clinical Notes Section Notes 07/15/2024 Well adult exam (ICD-10 - Z00.00) Patient to return when fasting tomorrow for Lipid profile and CMP 07/15/2024 Acute URI (ICD-10 - J06.9) Plan Of Treatment Medication Medication Name Sig Start Date Stop Date Notes Afrin Allergy Sinus 0.05 % 4 sprays (2 s prays in each nostril) Nasally Twice a day 07/15/2024 Astepro 205.5 MCG/SPRAY 2 sprays (1 spra y in each nostril) Nasally Twice a day 07/15/2024 Treatment Notes Assessment Notes Well adult exam Patient to return wh en fasting tomorrow for Lipid profile and CMP Next Appt Details Follow Up: via phone to repo rt progress, Reason: Progress Notes * Ramos DAUGHERTYDOB: 1995 (29 yo F)Acc No.[id number]:07/15/2024 Physical Patient: Ramos GROSSMAN Provider: Andie Rivas M.D. :1995 A ge:29 Y S ex:Female Date:07/15/2024 Address:[address] [place] [address] [id number] Subjective: * Chief Complaints: * 1 . Gen cpx & labs. * HPI: H PI: 29 year old female presents with c/o Patient is here today for?Pt here for insurance physical, pt states that needs lipid and glucose checked. Pt is not fasting today. E NT/respiratory: c/o facial pain/pressure P t complains of pressure on rt side of face. States she has also had some nasal congestion for about 2 weeks. * ROS: D ERMATOLOGY: no R erik. n o H luma. G ASTROENTEROLOGY: no N ausea. n o V omiting. U ROLOGY: no D ifficulty urinating. n o B lood in urine. * Medical History: M edical History Verified. * Surgical History: C yst removal Dr. Saizn [facility] 07/11/2018. * Hospitalization/Major Diagno stic Procedure: D enies Past Hospitalization. * Family History: F ather: alive 57 yrs. M other: alive 57 yrs. 1 brother(s) . . * Social History: C URRENT TOBACCO USE S moking Status: Patient does NOT smoke. C affeine: yes, frequency:tea, occasional. Home smoke detector use: yes. Marital Status: Single. Past smoking status: no, Smoking status: Does not smoke. Alcohol: No. Sexually active: no.. * Medications: D iscontinued Medrol 4 MG Tablet Therapy Pack as directed orally daily , Medication List reviewed and reconciled with the patient * Allergies: N .K.D.A. Objective: * Vitals: W t:153.4, Temp:97.9, BP:116/68, HR:96, Nurse:tommy, Ht: 65.75, BMI:24.95. * Examination: E NT/Respiratory: General Appearance: N AD. E yes: P ERRLA, sclera clear. E ars: a uditory canals normal bilaterally, TM's WNL. N ose : n ormal, no lesions, nares patent. S inuses : m inimal right sided maxillary sinus tenderness to palpation. Oral cavity : n o erythema or exudate seen on pharynx. N paulo : n o cervical lymphadenopathy. H eart : R RR, normal S1 S2. L ungs: c lear to auscultation bilaterally.? Assessment: * Assessment: 1. W ell adult exam - Z00.00 (Primary) 2 . A cute URI - J06.9 ? Plan: * Treatment: 2. A cute URI Start Afrin Allergy Sinus Solution, 0.05 %, 4 sprays (2 sprays in each nostril), Nasally, Twice a day; S tart Astepro Solution, 205.5 MCG/SPRAY, 2 sprays (1 spray in each nostril), Nasally, Twice a day. L AB: CBC Fingerstick (in house) (Collection Date & Time - 07/15/2024) Value Reference Range w bc 7.7 3.5 - 10 * l ym 29.6% 15 - 50 * m id 7.5% 2 - 15 * g ran 62.9% 35 - 80 * r bc 4.39 3.5 - 5.5 * h gb 12.4 11.5 - 16.5 * h ct 36.7 35 - 55 * m cv 83.5 75 - 100 * m ch 28.2 25 - 35 * m chc 33.8 31 - 38 * p lat 211 100 - 400 * Vickie Montez 07/15/2024 2:21:2 8 PM > , Provider reviewed results while patient in office. * Procedure Codes: 3 6416 CAPILLARY BLOOD DRAW, 93334 CBC WITH AUTO DIFF * Follow Up: v ia phone to report progress * Images: Billing Information: * Visit Code: 00601 Preventive Care Est Pt 18-39. * Procedure Codes: 99360 CAPILLARY BLOOD DRAW. 65876 CBC WITH AUTO DIFF. * Electronic signature of Deann Rivas MD on 04/13/2025 at 01:12 PM EDT Sign off status: Pending * Provider: Andie Rivas M.D. Date: 09/15/2023 Generated for Ilan bhatti/Erika/Pipoitting on: 0 04/13/2025 01:12 PM EDT History and Physical Notes * HPI (History of Present Illness) Category Sub-Category Detail Notes Category Not es ENT/respiratory facial pain/pressure Pt complain s of pressure on rt side of face. States she has also had some nasal congestion for about 2 weeks HPI Patient is here today for Pt her e for insurance physical, pt states that needs lipid and glucose checked. Pt is not fasting today Examination Category Sub-Category Detail Notes Category Not es ENT/Respiratory Oral cavity : no erythema or exudate s een on pharynx Sinuses : minimal right sided maxillary sinus tenderness to palpation Ears: auditory canals norm al bilaterally, TM's WNL Neck : no cervical lymphade nopathy Heart : RRR, normal S1 S2 Lungs: clear to auscultatio n bilaterally General Appearance: NAD Nose : normal, no lesions, nares patent Eyes: PERRLA, sclera clear
--- OUTSIDE RECORDS SUMMARY | 2024-07-16 08:10 | XMS_ITS ---
Author Organization [facility] Address [address] [facility] [address] [place]aez [id number] Care Team Providers Care Chiropractic Physician Name Role Phone Rob Skinny Primary Care Provider [phone] Elijah Edwards [phone] Results Component Value Reference Range Notes P-Comprehensive Metabolic Pa colton (CMP) Reviewed date:07/17/2024 02:02:32 PM Interpretation:Normal Performing Lab: Notes/Report: Test performed by [facility] [address] [place] [address] , [address], [place] [address] Syed Salcedo MD, Machine Stoppage Frequency Checker CLIA: [id number] Sodium 143 135-145 mmol/L Potassium 4.4 3.5-5.3 [...] Interpretation:Normal Performing Lab: Notes/Report: Test performed by [facility], [address] , [place] [address] Syed Salcedo MD, Machine Stoppage Frequency Checker CLIA: [id number] Cholesterol 158 <200 mg/dL Triglycerides 50 <150 [...] Provider Diagnosis [facility] [address] [facility] [address] [place] [id number] 07/16/2024 Skinny Rivas [facility] adult exam Z00. 00 Assessments Encounter Date Diagnosis (ICD Code) Assessment Notes Treatment Notes Treatment Clinical Notes Section Notes 07/16/2024 [facility] adult exam (ICD-10 - Z00.00) Plan Of Treatment No Information Progress Notes * Ramos DAUGHERTYDOB: 1995 (29 yo F)Acc No.[id number]:07/16/2024 Patient: Ramos GROSSMAN Provider: Andie Rivas M.D. :1995 A ge:29 Y S ex:Female Date:07/16/2024 Address:[address] [place], [place] [id number] Subjective: * Chief Complaints: * 1 [...] * Vitals: Assessment: * Assessment: 1. W [facility] adult exam - Z00.00 (Primary) Plan: [...] 1 PM > [facility] 07/17/2024 2:01:48 PM > Pt informed ?LAB: [...] 1 PM > LM [facility] 07/17/2024 2:01:48 PM > Pt informed * Images: Billing Information: * Visit Code: * Procedure Codes: * Electronic signature of Deann Rivas MD on 04/13/2025 at 01:12 PM EDT Sign off status: Pending * Provider: Andie Rivas M.D. Date: 1 09/16/2023 Generated for Ilan bhatti/Erika/eTzahira on: 0 04/13/2025 01:12 PM EDT
--- OUTSIDE RECORDS SUMMARY | 2025-04-13 13:12 | XMS_ITS | Patient Health Record ---
Author Organization [facility] Address [address] [place]aez [id number] Care Team Providers Care Cigarette Carton Sealer Name Role Phone Skinny Rivas Primary Care Provider [phone] Elijah Edwards Unavailable [phone] Allergies No Known Allergies Results Component Value [...] Interpretation:Normal Performing Lab: Notes/Report: Test performed by [employer] [facility] , [address], [place] [address] Syed Salcedo MD, Shoe Lining Fitter CLIA: [id number] Sodium 143 135-145 mmol/L Potassium 4.4 3.5-5.3 [...] Interpretation:Normal Performing Lab: Notes/Report: Test performed by [employer], [address] , [facility], [place] [address] Syed Salcedo MD, Shoe Lining Fitter CLIA: [id number] Cholesterol 158 <200 mg/dL Triglycerides 50 <150 [...] W/U Status Risk Notes Problem Allergic rhinitis (39447237) ALLERGIC RHINITIS NOS (477.9) Active confirmed Problem Chronic rhinitis (90926325) Rhinitis, unspecified type (J31.0) Active confirmed Problem Glossodynia (08556684) Tongue sore (K14.6) Active confirmed Problem Hypertrophy of tonsils (16126289) Lingual tonsil hypertrophy (J35.1) Active confirmed Vital Signs Heart Rate 96 /min 07/15/2024 Blood pressure diastolic 68 mm Hg 07/15/2024 Height 65.75 in 07/15/2024 Blood pressure systolic 116 mm Hg 07/15/2024 Weight 153.4 lbs 07/15/2024 BMI 24.95 kg/m2 07/15/2024 Encounters Encounter Location Date Provider Diagnosis [facility] [address] [facility] [address] [place] Baez [id number] 07/15/2024 Skinny Rivas Well adult exam Z00. 00 and Acute URI J06.9 [facility] [address] [place]aez [id number] 07/16/2024 Skinny Rivas Well adult exam Z00. 00 [facility] [address] [place] Baez [id number] 07/17/2024 Skinny Rivas Assessments Encounter Date Diagnosis [...] End Date LACIE GREENFIELD [address] [place] [address] [id number] C [id number] 001 Ramos LOERA Self - patient is the insured Medical (General) History Surgical History Surgery Date(Month/Year) Cyst removal [facility] Sainz [facility] 07/11/2018
--- OUTSIDE RECORDS SUMMARY | 2025-04-13 13:13 | XMS_ITS | Clinical Summary ---
Author Organization Healthcare Address [address] [place] [address] Care Team Providers Care Surgical Technologist Name Role Phone Unavailable Primary Care Provider [...]
--- OUTSIDE RECORDS SUMMARY | 2025-04-13 13:13 | XMS_ITS | Encounter Summary ---
Author Organization Healthcare Address [address] [place] [address] Care Team Providers Care Technical Sales Representative Name Role Phone Unavailable Primary Care Provider Unavailabl e Encounter Details Date Type Department Care Team (Late st Contact Info) Description 2023 Orders Only External Location [address] [place] [address] Provider, External Social History Tobacco Use Types [...]
[2025-04-13 13:22] VITALS: BP 108/59; PULSE 89; RESP 18; O2SAT 99
[2025-04-13] MEDS: IRON SUCROSE COMPLEX 200 MG in 0.9 % SODIUM CHLORIDE 100 ML 220 MG IV (13:22)
[2025-04-13 14:06] VITALS: BP 105/62; PULSE 88; RESP 18; O2SAT 99
--- NOTE | 2025-04-13 14:15 | US_ITS ---
PROCEDURE: US OB BIOPHYSICAL PROFILE CLINICAL INDICATION: BPP/Growth/MARTÍN COMPARISON: US US OB /MATERNAL DETAIL from 12/08/2024 US US OB BIOPHYSICAL PROFILE from 03/09/2025 US US OB BIOPHYSICAL PROFILE from 04/07/2025 FINDINGS: Transabdominal sonographic images of the uterus were obtained. From her established due date she is 38weeks 3days. The following parameters are obtained: Viable Fetus in the cephalic presentation with an anterior placenta grade 2. A placental Gaviria is seen. Average ultrasound age is 37weeks 1day Estimated weight 3,125g, 6 lb 14 oz The cervix measures 3.92 cm in length Measurements: heart Rate = 152bpm BPD = 36weeks 3days, 23 percentile HC = 37weeks 1day, 9 percentile AC = 37weeks 2days, 33 percentile FL = 37weeks 4days, 30th percentile HC/AC is 0.98 FL/BPD is 0.81 FL/AC is 0.22 32 percentile Amniotic fluid index: 7.78cm, MVP 5.48 cm. Qualitative AFV:2 Breathing movements: 2 Gross Body Movements: 2 Tone: 2 Biophysical profile score: 8 No obvious anomalies evident.Kidneys, stomach, bladder, four-chamber heart, three-vessel cord appear normal. IMPRESSION: 1. Viable fetus in the cephalic presentation with an anterior placenta grade 2. Placental Gaviria is noted. 2. Fluid is within normal limits with an amniotic fluid index 7.78 cm, MVP 5.48 cm. 3. Biophysical profile is 8/8 with good breathing movement and movement seen. 4. There has been good interval growth with the fetus currently 30 second percentile. 5. Limited anatomical scan appears normal. Dictated by: Etienne Kelly MD 04/13/2025 18:48 Etienne Kelly MD in [place] 04/13/2025 18:48
== END 2025-04-13 14:06 | disposition home or self-care (01) ==
LOC: INF 13:06
PROVIDERS: PCP Family Medicine; Visit Provider Obstetrics & Gynecology
DX: O28.3 Abnormal ultrasonic finding on antenatal screening of mother (principal); O28.8 Other abnormal findings on antenatal screening of mother; O36.5930 Maternal care for other known or suspected poor fetal growth, third trimester, not applicable or unspecified; O09.893 Supervision of other high risk pregnancies, third trimester; O99.013 Anemia complicating pregnancy, third trimester; D62 Acute posthemorrhagic anemia; Z3A.38 38 weeks gestation of pregnancy
CPT/HCPCS: 76816; 76819; 96365; J1756

== ENCOUNTER 2025-04-18 17:11 | Inpatient (IN) | payer BC, SELFPAY ==
--- OUTSIDE RECORDS SUMMARY | 2023-12-18 11:15 | XMS_ITS ---
Author Organization Lani Address [facility] [address] [place] [phone] Care Team Providers Care Loading Machine Operator Helper Name Role Phone Skinny Rivas Primary Care Provider Elijah Edwards [phone] Results Component Value Reference Range Notes CBC [...] Encounter Location Date Provider Diagnosis [place] [facility] [address] [place] [id number] 12/18/2023 Skinny Rivas Bleeding gums K06.8 Assessments Encounter Date Diagnosis (ICD Code) Assessment Notes Treatment Notes Treatment Clinical Notes Section Notes 12/18/2023 Bleeding gums (ICD-10 - K06.8) Plan Of Treatment No Information Progress Notes * Ramos DAUGHERTYDOB: 1995 (30 yo F)Acc No.[id number]:12/18/2023 Patient: Ramos GROSSMAN Provider: Andie Rivas M.D. :1995 A ge:28 Y S ex:Female Date:12/18/2023 Address:[facility] [id number] Subjective: * Chief Complaints: * 1 . [...] Procedure Codes: 3 6416 CAPILLARY BLOOD DRAW, 62613 CBC WITH AUTO DIFF * Images: Billing Information: * Visit Code: * Procedure Codes: 85345 CAPILLARY BLOOD DRAW. 43979 CBC WITH AUTO DIFF. * Electronic signature of Deann Rivas MD on 04/18/2025 at 05:16 PM EDT Sign off status: Pending * Provider: Andie Rivas M.D. Date: 0 12/18/2023 Generated for Ilan bhatti/Erika/Pipoitting on: 0 04/18/2025 05:16 PM EDT
--- OUTSIDE RECORDS SUMMARY | 2024-07-15 09:45 | XMS_ITS ---
Author Organization [facility] Address [address] [facility] [address] [address] [id number] Care Team Providers Care Supervisor Asbestos Removal Name Role Phone [place] Skinny Primary Care Provider Elijah Edwards [phone] Allergies No Known Allergies Results Component Value [...] [address] [place] [address] [id number] 07/15/2024 Skinny Rivas Well adult exam Z00. [...] Reason: Progress Notes * Ramos DAUGHERTYDOB: 1995 (30 yo F)Acc No.[id number]:07/15/2024 Physical Patient: Ramos GROSSMAN Provider: Andie Rivas M.D. :1995 A ge:29 Y S ex:Female Date:07/15/2024 Address:[address] [place] [address] [id number] Subjective: * Chief Complaints: [...] Surgical History: C yst removal [facility]. Sainz [facility] 07/11/2018. * Hospitalization/Major Diagno stic [...] Procedure Codes: 3 6416 CAPILLARY BLOOD DRAW, 97066 CBC WITH AUTO DIFF * Follow Up: v ia phone to report progress * Images: Billing Information: * Visit Code: 67480 Preventive Care Est Pt 18-39. * Procedure Codes: 81549 CAPILLARY BLOOD DRAW. 80330 CBC WITH AUTO DIFF. * Electronic signature of Deann Rivas MD on 04/18/2025 at 05:16 PM EDT Sign off status: Pending * Provider: Andie Rivas M.D. Date: 1 09/15/2023 Generated for Ilan bhatti/Erika/Pipoitting on: 0 04/18/2025 05:16 PM EDT History and Physical Notes * [...]
--- OUTSIDE RECORDS SUMMARY | 2024-07-16 08:10 | XMS_ITS ---
Author Organization [facility] Address [address] [facility] [address] [place] [id number] Care Team Providers Care Insulation Cutter Name Role Phone Rob Skinny Primary Care Provider Elijah Edwards [phone] Results Component Value Reference Range Notes P-Comprehensive Metabolic Pa colton (CMP) Reviewed date:07/17/2024 02:02:32 PM Interpretation:Normal Performing Lab: Notes/Report: Test performed by [facility] [address] [place] [address] , [address], [place] [address] Syed Salcedo MD, Meter Tester Polyphase CLIA: [id number] Sodium 143 135-145 mmol/L Potassium 4.4 3.5-5.3 [...] Interpretation:Normal Performing Lab: Notes/Report: Test performed by [facility], [address] , [place] [address] Syed Salcedo MD, Meter Tester Polyphase CLIA: [id number] Cholesterol 158 <200 mg/dL Triglycerides 50 <150 [...] Provider Diagnosis [facility] [address] [facility] [address] [id number] 07/16/2024 Skinny Rivas [facility] adult exam Z00. 00 Assessments Encounter Date Diagnosis (ICD Code) Assessment Notes Treatment Notes Treatment Clinical Notes Section Notes 07/16/2024 [facility] adult exam (ICD-10 - Z00.00) Plan Of Treatment No Information Progress Notes * Ramos DAUGHERTYDOB: 1995 (30 yo F)Acc No.[id number]:07/16/2024 Patient: Ramos GROSSMAN Provider: Andie Rivas M.D. :1995 A ge:29 Y S ex:Female Date:07/16/2024 Address:[address] [place], [place] [id number] Subjective: * Chief Complaints: * 1 [...] * Vitals: Assessment: * Assessment: 1. W [facility] adult exam - Z00.00 (Primary) Plan: [...] PM > [facility]/17/[facility] 2:01:48 PM > Pt informed [...] PM > LM for [facility] 07/17/2024 2:01:48 PM > Pt informed * Images: Billing Information: * Visit Code: * Procedure Codes: * Electronic signature of Deann Rivas MD on 04/18/2025 at 05:16 PM EDT Sign off status: Pending * Provider: Andie Rivas M.D. Date: 1 09/16/2023 Generated for Ilan bhatti/Erika/Geovany on: 0 04/18/2025 05:16 PM EDT
[2025-04-18 17:14] VITALS: BMI 27.8
[2025-04-18 17:15] VITALS: BP 114/70; PULSE 86; RESP 16; TEMP 36.8; O2SAT 98; BMI 27.8
--- OUTSIDE RECORDS SUMMARY | 2025-04-18 17:16 | XMS_ITS | Encounter Summary ---
Author Organization Healthcare Address [address] [place] [address] Care Team Providers Care Machine Clothing Man Name Role Phone Unavailable Primary Care Provider Unavailabl e Encounter Details Date Type Department Care Team (Late st Contact Info) Description 2023 Orders Only External Location [address] [place] [address] Provider, External Social History Tobacco Use Types [...]
--- OUTSIDE RECORDS SUMMARY | 2025-04-18 17:16 | XMS_ITS | Patient Health Record ---
Author Organization [facility] Address [address] [place] Baez [id number] Care Team Providers Care Trail Maintenance Worker Name Role Phone Skinny Rivas Primary Care Provider [phone] Elijah Edwards Unavailable [phone] Allergies No Known Allergies Results Component Value Reference Range Notes P-Comprehensive Metabolic Pa colton (CMP) Reviewed date:07/17/2024 02:02:32 PM Interpretation:Normal Performing Lab: Notes/Report: Test performed by [facility] [address] [place] [address] , [address], [place] [address] Syed Salcedo MD, Field Contact Technician CLIA: [id number] Sodium 143 135-145 mmol/L Potassium 4.4 3.5-5.3 [...] Interpretation:Normal Performing Lab: Notes/Report: Test performed by [facility], [address], [place] [address] Syed Salcedo MD, Field Contact Technician CLIA: [id number] Cholesterol 158 <200 mg/dL Triglycerides 50 <150 [...] Results: 92 Units: mg/dL % Change: - CBC Fingerstick (in house) Reviewed date:07/15/2024 02:32:11 [...] W/U Status Risk Notes Problem Allergic rhinitis (56213490) ALLERGIC RHINITIS NOS (477.9) Active confirmed Problem Chronic rhinitis (61990277) Rhinitis, unspecified type (J31.0) Active confirmed Problem Glossodynia (32482548) Tongue sore (K14.6) Active confirmed Problem Hypertrophy of tonsils (05134658) Lingual tonsil hypertrophy (J35.1) Active confirmed Vital Signs Heart Rate 96 /min 07/15/2024 Blood pressure diastolic 68 mm Hg 07/15/2024 Height 65.75 in 07/15/2024 Blood pressure systolic 116 mm Hg 07/15/2024 Weight 153.4 lbs 07/15/2024 BMI 24.95 kg/m2 07/15/2024 Encounters Encounter Location Date Provider Diagnosis [facility] [address] [place]aez [id number] 07/15/2024 Skinny Rivas Well adult exam Z00. 00 and Acute URI J06.9 [facility] [address] [place]ae[place] [id number] 07/16/2024 Skinny Rivas Well adult exam Z00. 00 [facility] [address] [place]aez [id number] 07/17/2024 Skinny Rivas Assessments Encounter Date Diagnosis [...] End Date LACIE GRE[facility]FIELD [address] [place] [address] [id number] Ramos LOERA Self - patient is the insured Medical (General) History Surgical History Surgery Date(Month/Year) Cyst removal Dr. Sainz [facility] 07/11/2018
--- OUTSIDE RECORDS SUMMARY | 2025-04-18 17:16 | XMS_ITS | Clinical Summary ---
Author Organization Healthcare Address [address] [place] [address] Care Team Providers Care Belt Sewer Name Role Phone Unavailable Primary Care Provider [...]
[2025-04-18 17:56] LABS: Hematocrit 32.5 % (37.0-47.0); Hemoglobin 10.8 g/dL (12.2-16.2); Immature Granulocytes % 0.9 %; Mean Corpuscular HGB Conc 33.2 g/dL (31.8-35.4); Mean Corpuscular Hemoglobin 27.1 pg (27.0-31.2); Mean Corpuscular Volume 81.7 fl (81-99); Nucleated Red Blood Cells % 0 %; Platelet Count 174 K/mm3 (142-424); Red Blood Count 3.98 M/mm3 (4.20-5.40); Red Cell Distribution Width-SD 45.7 fL; White Blood Count 10.5 K/mm3 (4.8-10.8)
[2025-04-18] MEDS: LACTATED RINGERS 1000ML 1,000 ML 500 ML IV ×2 (22:02→23:06)
[2025-04-18] MEDS: ONDANSETRON 4MG/2ML VIAL 4 MG IV (23:07)
--- NOTE | 2025-04-18 23:08 | P.PNANES_ITS ---
[facility] Disclaimer: The information contained in this section may have been updated after the patient was seen, as this information can be updated by other users. Medical History Status post normal vaginal delivery PROM (premature rupture of membranes) Surgical History No significant past surgical history Family History Other Cancer Diabetes Thyroid disorder Social History (Updated 04/18/25 @ 18:07 by Blanca Whiting RN) Smoking Status: Never smoker alcohol intake: never substance use type: denies use current occupational status: employed Travel in the last 8 weeks?: None household members: spouse and children housing: house marital status: number of children: 1 current occupational exposures/hazards: No caffeine: Yes do you feel safe at home: Yes victim of physical abuse: No victim of emotional abuse: No victim of sexual abuse: No Have you lived/traveled outside US in past 30 days?: No Contact w/someone who lives/traveled outside US past 30 days?: No Exposure to someone with infectious disease in past 14 days?: No Do you have a fever (greater than 100.4 F or 38 C)?: No Have you tested positive for COVID-19?: No Exposed to someone with COVID-19 in past 14 days?: No Do you have a sore throat?: No Do you have a cough?: No Do you have any weakness?: No Are you experiencing any nausea/vomitting?: No Do you have any diarrhea?: No Are you experiencing any unusual bleeding?: No Do you have any muscle aches/pain?: No Do you have any abdominal pain?: No Are you experiencing loss of taste or smell?: No [facility] Anesthesia Checklist Patient Identification Patient Identification: Arm Band Structural Data Admitted From: Inpatient Planned Operative Procedure/s: Labor Epidural Consent for Planned Operative Procedure(s) Verified: Yes Verified Documents: Surgical Consent and History and Physical Additional verifications Anesthesia Reactions: No Hx Blood Transfusions: No Blood Transfusion Reaction: Yes Neurological Assessment Level of Consciousness: Awake, Alert and Appropriate Anesthesia Plan Anesthesia Risk discussed: Yes Anesthesia Plan: Verified ASA Class: II Anesthesia Type: Epidural
[2025-04-18 23:31] LABS: Microscopic, Urine URINE MICROSCOPIC (MICROSCOPIC)
[2025-04-18 23:44] LABS: Bilirubin,Urine Negative (Negative); Color,Urine YELLOW (Yellow); Glucose,Urine (UA) Negative (Negative); Ketones,Urine Negative (Negative); Leukocyte Esterase,Urine Negative (Negative); PH,Urine 7.0 (5.0-8.5); Protein,Urine Negative (Negative); Specific Gravity, Urine <= 1.005 (1.005-1.030); Urobilinogen,Urine 0.2 EU/dl (0.2)
[2025-04-18 23:53] LABS: RBC,Urine Occasional #/hpf (0-3); Squamous Epithelial Cell,Urine Occasional #/hpf (0-5)
[2025-04-19] MEDS: OXYTOCIN/RINGERS LACTATE 30 UNITS/500 ML BAG 999 UNITS IV (00:40)
--- NOTE | 2025-04-19 01:05 | P.HP_ITS ---
History of Present Illness *Admission Date: 04/18/25 *Reason for visit:: Induction *History of present illness: Katrina is a very pleasant 30yo at 39w1d gestation who presented to labor and delivery for a scheduled IOL. Her has been uncomplicated. On presentation patient endorsed good movement and denies any leakage of fluid or vaginal bleeding. A+, antibody negative, rubella non-immune, hepatitis B negative, hepatitis C negative, RPR negative, HIV negative 1 hour GTT: 90 GBS negative PFSH PFS Disclaimer: The information contained in this section may have been updated after the patient was seen, as this information can be updated by other users. Medical History Status post normal vaginal delivery PROM (premature rupture of membranes) Surgical History No significant past surgical history Family History Other Cancer Diabetes Thyroid disorder Social History (Updated 04/18/25 @ 18:07 by Blanca Whiting RN) Smoking Status: Never smoker alcohol intake: never substance use type: denies use current occupational status: employed Travel in the last 8 weeks?: None household members: spouse and children housing: house marital status: number of children: 1 current occupational exposures/hazards: No caffeine: Yes do you feel safe at home: Yes victim of physical abuse: No victim of emotional abuse: No victim of sexual abuse: No Have you lived/traveled outside US in past 30 days?: No Contact w/someone who lives/traveled outside US past 30 days?: No Exposure to someone with infectious disease in past 14 days?: No Do you have a fever (greater than 100.4 F or 38 C)?: No Have you tested positive for COVID-19?: No Exposed to someone with COVID-19 in past 14 days?: No Do you have a sore throat?: No Do you have a cough?: No Do you have any weakness?: No Are you experiencing any nausea/vomitting?: No Do you have any diarrhea?: No Are you experiencing any unusual bleeding?: No Do you have any muscle aches/pain?: No Do you have any abdominal pain?: No Are you experiencing loss of taste or smell?: No Other Medical History Have you received the Flu Vaccine for this season: No Have you received the Pneumonia Vaccine: No Review of Systems Review of Systems Review of systems (narrative): Review of Systems Constitutional: Denies fever, chills, and sweats Eyes: Denies vision change/ pain Respiratory: Denies cough and shortness of breath Cardiovascular: Denies chest pain and lightheadedness Gastrointestinal: Admits abdominal pain with contractions. Denies nausea, vomiting. Genitourinary: Denies dysuria and incontinence Musculoskeletal: Denies shoulder pain and back pain Neurological: Denies change in speech or headaches Meds Home Medications and Allergies Home Medications ?Medication ?Instructions ?Recorded ?Confirmed ?Type vits no.126-ferrous fum 1 tab PO DAILY #90 ta bs 08/28/24 04/18/25 Rx 28 mg iron-folic acid 800 mcg tablet (Classic ) iron sucrose 200 mg iron/10 mL 200 mg (10 mL) IV WEEKL Y 2 weeks 04/06/25 04/18/25 Rx intravenous solution (Venofer) #20 mL New Prescriptions to Start Prescriptions: Allergies Allergy/AdvReac Type Severity Reaction Status Date / Time clindamycin (From Cleocin) Allergy Intermediate esophagitis Verified 04/18/25 17:46 Exam Data for Last 24 hours Vital signs and Labs for Last 24 Hours: Temp Pulse Resp BP Pulse Ox O2 Del Method 98.3 F 86 16 114/70 98 Room Air 04/18/25 17:15 04/18/25 17:15 04/18/25 17:15 04/18/25 17:15 04/18/25 17:15 04/18/25 17:15 Laboratory Results - last 24 hr 04/18/25 17:46: WBC 10.5, RBC 3.98 L, Hgb 10.8 L, Hct 32.5 L, MCV 81.7, MCH 27.1, MCHC 33.2, RDW 15.8, Plt Count 174, MPV 9.8, Neut % (Auto) 74.3, Lymph % (Auto) 18.7, [place] % (Auto) 5.0, Eos % (Auto) 0.9, Baso % (Auto) 0.2, Neut # (Auto) 7.8, Lymph # (Auto) 2.0, [place] # (Auto) 0.5, Eos # (Auto) 0.1, Baso # (Auto) 0.0, Blood Type A Positive, Antibody Screen Negative 04/18/25 23:10: Urine Color Yellow, Urine Appearance Clear, Urine pH 7.0, Ur Specific [place] <= 1.005, Urine Protein Negative, Urine Glucose (UA) Negative, Urine Ketones Negative, Urine Blood Negative, Urine Nitrate Negative, Urine Bilirubin Negative, Urine Urobilinogen 0.2, Ur Leukocyte Esterase Negative, Urine RBC Occasional, Ur Squamous Epith Cells Occasional I & O for Last 24 hours: Intake & Output 04/16/25 04/17/25 04/18/25 04/19/25 23:59 23:59 23:59 23:59 Intake Total 0 / 0 Balance 0 / 0 Weight 178 lb Narrative: General: patient is alert oriented in no acute distress and responds appropriately to questions. HEENT: NCAT, EOMI, moist mucous membranes, neck supple with full ROM Cardiovascular: RRR +S1/S2, no murmurs or rubs Pulmonary: Clear to auscultation bilaterally, nonlabored breathing, symmetric chest rise Abdominal: Gravid abdomen appropriate for gestation. No guarding, rebound, or tenderness noted. Extremities: trace edema, no tenderness or cyanosis noted Skin: Normal turgor, intact, warm. Negative for erythema, pallor, petechia, or lesions Neurologic: Negative for sensory or motor deficit Psychiatric: Normal affect, normal thought process, good judgment and insight, no depression or anxious mood appreciated. *Routine HEENT Exam Head: Present normocephalic and atraumatic Eye: Present EOMI, PERRL and normal accommodation; Absent conjunctival icterus, scleral injection, nystagmus or exophthalmos ENT: Present mucous membranes moist *Routine Respiratory Exam Respiratory: Present CTA bilaterally, normal respiratory effort, able to speak in complete sentences and symmetric chest movement; Absent accessory muscle use, decreased breath sounds, rales, respiratory distress, wheezes, distant breath sounds or diminished air movement *Routine Cardiovascular Exam Cardiovascular: Present RRR, Normal S1 and Normal S2; Absent murmur or gallop *Routine Abdominal Exam Abdominal: Present soft and normoactive bowel sounds; Absent tenderness, distended, rebound or guarding *Routine Rectal Exam Rectal:: deferred *Routine Genitalia Exam Genitalia:: normal female Assessment and Plan *Assessment and plan (1) Short interval between pregnancies affecting in third trimester, antepartum: Status: Acute Category: Medical Code(s): O09.893 - Supervision of other high risk pregnancies, third trimester (2) Microcytic anemia: Status: Acute Category: Medical Code(s): D50.9 - Iron deficiency anemia, unspecified (3) Status post normal vaginal delivery: Status: Acute Category: Medical Plan - Monitor vitals - Admit to L&D for induction of labor - Plan for induction with 50 mcg of vaginal cytotec [id number] per protocol - External FHR and TOCO monitor - Exam on admission: /-3 - GBS neg/ Blood type: A+ - Hemoglobin: 10.8, Plt: 81.7 - Plan for epidural anesthesia - Anticipate vaginal delivery of female : Suzy Briseno [facility] #Rubella Non Immune - Corporate Wellness Coordinator and vaccinate
--- NOTE | 2025-04-19 01:32 | EXP.DN ---
Delivery Note Delivery Date:: 04/19/25 Delivery Time:: 00:35 Anesthesia Type: Epidural Was labor medically induced?: Yes Induction method: per misoprostol protocol Gestational age (weeks): 39 Infant delivered prior to 39 weeks?: No Gender: Female at 1 minute: 9 at 5 minutes: 10 Delivery Procedure:: Preoperative diagnosis: 1. at 39 completed this weeks gestation, vertex 2. Rh positive 3. GBS negative Postoperative diagnosis: 1. at 39 completed this weeks gestation, vertex 2. Rh positive 3. GBS negative EBL: 100mL Specimen: 1. Cord blood Findings: 1. Liveborn viable female infant: Suzy Lieberman. Apgars 9/10 at 1 and 5 minutes respectively. Weight pending at time of dictation 2. 2nd degree midline perineal laceration Complications: None Procedure: Nonoperative spontaneous vaginal delivery Katrina is a pleasant 30-year-old who is brought in for elective induction of labor. She had a ultrasound which while had an appropriate MVP there was only 1 pocket of fluid and the rest were absent so we elected to proceed with the term induction. Otherwise her was uncomplicated. On admission she was 1 cm dilated and given Cytotec for cervical ripening. She experienced SROM, clear fluid. She received an epidural for anesthesia. She progressed to complete. The was noted to be in the direct OA position. With effective maternal pushing there was a nonoperative spontaneous vaginal delivery at 0035. There was no nuchal cord. The anterior left shoulder delivered, followed by the posterior shoulder without dystocia. The posterior arm was near the face. The body and lower extremities delivered without difficulty. The was bulb suctioned and was crying immediately following delivery. The was placed on the maternal abdomen and greater than 2 minutes were appreciated for delayed cord clamping. The umbilical cord was doubly clamped and cut. Cord blood was collected and sent for routine testing. The placenta delivered with cord traction and suprapubic contertraction. Pitocin was started. The uterus was firm and bleeding was minimal. The perineum, vaginal ng, cervix, and paraurethral area were inspected thoroughly. There was a second-degree midline perineal laceration. The laceration was repaired in the usual fashion using 2-0 Vicryl suture. The laceration was hemostatic. The cervix and vaginal ng were inspected and noted to be hemostatic. This concluded the delivery. The patient was counseled regarding the events of the delivery and repair. The patient tolerated the delivery well. All counts were correct by nursing. Mother and were doing well and bonding upon my leaving the delivery room. Placental Delivery Description: Spontaneous
[2025-04-19] MEDS: IBUPROFEN 400 MG TABLET 800 MG PO ×3 (01:59→17:57)
[2025-04-19] MEDS: BENZOCAINE-MENTHOL SPRAY 56GM CAN TP (01:59)
[2025-04-19] MEDS: LANOLIN CREAM 40GM TP (01:59)
[2025-04-19] MEDS: WITCH HAZEL 40 PADS/BOX 1 EACH TP (01:59)
[2025-04-19 06:18] LABS: Hematocrit 30.6 % (37.0-47.0); Hemoglobin 9.9 g/dL (12.2-16.2); Immature Granulocytes % 0.8 %; Mean Corpuscular HGB Conc 32.4 g/dL (31.8-35.4); Mean Corpuscular Hemoglobin 26.9 pg (27.0-31.2); Mean Corpuscular Volume 83.2 fl (81-99); Nucleated Red Blood Cells % 0 %; Platelet Count 155 K/mm3 (142-424); Red Blood Count 3.68 M/mm3 (4.20-5.40); Red Cell Distribution Width-SD 46.8 fL; White Blood Count 16.0 K/mm3 (4.8-10.8)
[2025-04-19 08:48] VITALS: BP 107/66; PULSE 82; RESP 18; TEMP 36.8; O2SAT 98
[2025-04-19 13:01] LABS: RPR W/RFX Titers Nonreactive (Nonreactive)
[2025-04-19 16:30] VITALS: BP 106/63; PULSE 97; RESP 18; TEMP 36.6; O2SAT 97
[2025-04-19 19:35] VITALS: BP 113/69; PULSE 78; RESP 16; TEMP 36.6; O2SAT 98
[2025-04-19] MEDS: SENNA 8.6MG TABLET 8.6 MG PO (19:40)
[2025-04-19] MEDS: ACETAMINOPHEN 500MG TAB 1000 MG PO (19:41)
[2025-04-20] MEDS: IBUPROFEN 400 MG TABLET 800 MG PO (02:19)
[2025-04-20 05:00] VITALS: BP 105/68; PULSE 72; RESP 16; TEMP 36.6; O2SAT 98
--- NOTE | 2025-04-20 10:25 | EXP.PN ---
Subjective *Date: 04/19/25 *Time: 10:25 Interval history: Katrina Lieberman is a G2, P2 day #0 following a normal spontaneous vaginal delivery at 39 weeks and 2 days gestation. was uncomplicated. Routine delivery and course. She is doing well, sitting up in bed, and visiting with family this morning. -Reports pain is well-controlled -Reports she is tolerating p.o. without nausea or vomiting. -Reports her lochia is scant. -Undecided on contraception -She is breast-feeding her female -Ambulating, voiding difficulty or dysuria. Denies chest pain shortness of breath or pain in her legs. No further complaints at this time. Exam Data for Last 24 hours Vital signs and Labs for Last 24 Hours: Temp Pulse Resp BP Pulse Ox O2 Del Method 97.9 F 72 16 105/68 L 98 Room Air 04/20/25 05:00 04/20/25 05:00 04/20/25 05:00 04/20/25 05:00 04/20/25 05:00 04/20/25 05:00 Laboratory Results - last 24 hr 04/18/25 17:46: RPR w/Rflx to Titer Nonreactive I & O for Last 24 hours: Intake & Output 04/17/25 04/18/25 04/19/25 04/20/25 23:59 23:59 23:59 23:59 Intake Total 0 / 0 1000 / 1000 Balance 0 / 0 1000 / 1000 Weight 178 lb Narrative: General: patient is alert oriented in no acute distress and responds appropriately to questions. Appears to be in minimal pain. Sitting up in the chair and doing well HEENT: NCAT, EOMI, moist mucous membranes, neck supple with full ROM Cardiovascular: RRR +S1/S2, no murmurs or rubs Pulmonary: Clear to auscultation bilaterally, nonlabored breathing, symmetric chest rise Abdominal: Fundus below the umbilicus, firm, and tenderness appropriate for the period. Extremities: trace edema, no tenderness or cyanosis noted Skin: Normal turgor, intact, warm. Negative for erythema, pallor, petechia, or lesions Neurologic: Negative for sensory or motor deficit Psychiatric: Normal affect, normal thought process, good judgment and insight, no depression or anxious mood appreciated. Assessment and Plan *Assessment and plan (1) Short interval between pregnancies affecting in third trimester, antepartum: Status: Acute Category: Medical Code(s): O09.893 - Supervision of other high risk pregnancies, third trimester (2) Microcytic anemia: Status: Acute Category: Medical Code(s): D50.9 - Iron deficiency anemia, unspecified (3) Status post normal vaginal delivery: Status: Acute Category: Medical Plan Stable. PPD#0 s/p -2nd. -Doing well. VSS. Serial lochia and fundal checks. -Continue with perineal ice packs for discomfort -Hemoglobin:10.8 --> 9.9 - asymptomatic anemia noted. Vitals stable. Continue monitoring. DC with Fe -A+/antibody negative -, female -Contraception: undecided -Follow-up 2 weeks for routine visit -Dispo: home in 1-3 days pending mother/ status
--- NOTE | 2025-04-20 10:29 | P.DS_ITS ---
General Admission date:: 04/18/25 Discharge date: 04/20/25 HPI HPI HPI: Katrina is a very pleasant 30yo at 39w1d gestation who presented to labor and delivery for a scheduled IOL. Her has been uncomplicated. On presentation patient endorsed good movement and denies any leakage of fluid or vaginal bleeding. A+, antibody negative, rubella non-immune, hepatitis B negative, hepatitis C negative, RPR negative, HIV negative 1 hour GTT: 90 GBS negative Hospital Course Hospital Course Hospital Course: Katrina Lieberman is a pleasant 30-year-old G2, P2 day #1 following a normal spontaneous vaginal delivery. She delivered a live viable female infant on 04/19/2025 at 0035 AM. Infant weighed 6 pounds 13 ounces. Female: Suzy Briseno. Apgars were 9 and 10 at 1 and 5 minutes respectively. was complicated by iron deficiency anemia She has done well and has remained afebrile with her at her hospitalization. She is eating and drinking and ambulating. She is breast feeding. Her lochia is normal. She has A Rh+ blood, she is rubella nonimmune immune and was group B streptococcus negative. She will be discharged home to follow-up with Dr. Glover in 2 weeks time. She will continue with her vitamins and iron. She will take ibuprofen as well. She was given the usual instructions with respect to limiting her activity, driving and sexual activity. She was given instructions with respect to wound care. Her condition on discharge is stable and improved. Exam Data for Last 24 hours Vital signs and Labs for Last 24 Hours: Temp Pulse Resp BP Pulse Ox O2 Del Method 97.9 F 72 16 105/68 L 98 Room Air 04/20/25 05:00 04/20/25 05:00 04/20/25 05:00 04/20/25 05:00 04/20/25 05:00 04/20/25 05:00 Laboratory Results - last 24 hr 04/18/25 17:46: RPR w/Rflx to Titer Nonreactive I & O for Last 24 hours: Intake & Output 04/17/25 04/18/25 04/19/25 04/20/25 23:59 23:59 23:59 23:59 Intake Total 0 / 0 1000 / 1000 Balance 0 / 0 1000 / 1000 Weight 178 lb Narrative: General: patient is alert oriented in no acute distress and responds appropriately to questions. Appears to be in minimal pain. Sitting up in the chair and doing well HEENT: NCAT, EOMI, moist mucous membranes, neck supple with full ROM Cardiovascular: RRR +S1/S2, no murmurs or rubs Pulmonary: Clear to auscultation bilaterally, nonlabored breathing, symmetric c hest rise Abdominal: Fundus below the umbilicus, firm, and tenderness appropriate for the period. Extremities: trace edema, no tenderness or cyanosis noted Skin: Normal turgor, intact, warm. Negative for erythema, pallor, petechia, or lesions Neurologic: Negative for sensory or motor deficit Psychiatric: Normal affect, normal thought process, good judgment and insight, no depression or anxious mood appreciated. Results Data Completed and Pending Labs on day of discharge: Labs from last 24 hours 04/18/25 17:46 RPR w/Rflx to Titer Nonreactive DS: Diagnosis Discharge Diagnosis (1) Short interval between pregnancies affecting in third trimester, antepartum: Status: Acute Code(s): O09.893 - Supervision of other high risk pregnancies, third trimester (2) Microcytic anemia: Status: Acute Code(s): D50.9 - Iron deficiency anemia, unspecified (3) Status post normal vaginal delivery: Status: Acute Meds Home Medications and Allergies Home Medications ?Medication ?Instructions ?Recorded ?Confirmed ?Type vits no.126-ferrous fum 1 tab PO DAILY #90 ta bs 08/28/24 04/18/25 Rx 28 mg iron-folic acid 800 mcg tablet (Classic ) acetaminophen 500 mg tablet 500 mg PO Q6H PRN fever or pain 04/20/25 Rx #30 tabs ferrous sulfate 325 mg (65 mg 325 mg PO DAILY #30 tabs 04/20/25 Rx iron) tablet,delayed release ibuprofen 800 mg tablet 800 mg PO Q8H PRN pain #60 t abs 04/20/25 Rx sennosides 8.6 mg tablet (Senna 8.6 mg PO BIDP PRN Con stipation 04/20/25 Rx Lax) #60 tabs New Prescriptions to Start Prescriptions: acetaminophen Reva Glover ferrous sulfate Reva Glover ibuprofen Reva Glover sennosides [Senna Lax] Adalberto,Reva Allergies Allergy/AdvReac Type Severity Reaction Status Date / Time clindamycin (From Cleocin) Allergy Intermediate esophagitis Verified 04/18/25 17:46 Discharge Plan Disposition Patient Disposition: Home, Self-Care Condition: Good Discharge Order Discharge Orders: Discharge Order (Routine); Ordered 04/20/25 Ordered By: Reva Glover Follow up Plan Follow up with: Reva Glover DO [Staff Physician, RADIOTELEGRAPHIST] - 05/03/25 11:15 am Prescriptions/Medication Reconciliation: New acetaminophen 500 mg tablet 500 mg PO Q6H PRN (Reason: fever or pain) Qty: 30 3RF sennosides [Senna Lax] 8.6 mg Tablet 8.6 mg PO BIDP PRN (Reason: Constipation) Qty: 60 2RF ibuprofen 800 mg tablet 800 mg PO Q8H PRN (Reason: pain) Qty: 60 2RF ferrous sulfate 325 mg (65 mg iron) tablet,delayed release (DR/EC) 325 mg PO DAILY Qty: 30 3RF Continued Classic 28 mg iron- 800 mcg tablet 1 tab PO DAILY Qty: 90 4RF Discontinued iron sucrose [Venofer] 200 mg iron/10 mL solution 200 mg IV WEEKLY 14 Days Qty: 20 1RF Rx Instructions: administer over 2-5 mins Problem Reconciliation Problems Reviewed?: Yes Patient Discharge Instructions ACTIVITY: Continue current activity DIET: regular diet Additional Instructions: Congratulations on the delivery of your sweet baby girl. It is my privilege to be your doctor and I am so thankful I could be a part of your special day. Discharge: -Take 800 mg Ibuprofen every 8 hours as needed for pain. You can also take 500- 1000 mg of Tylenol in between doses, every 6-8 hours. -Colace can be taken 1-2 times per day as you need to soften your stool. Make sure to drink at least 8 cups of water per day. -Iron supplements can make you constipated. You can take iron tablets every other day if constipation is too bad. -Nothing in the vagina for 6 weeks - no intercourse, douching, tampons. No tub baths or swimming pools. -Do not lift greater than 20pounds for 2 weeks, this is the equivalent of 2 gallons of milk. -Reasons to return to L&D or call On-Call doctor - fever (greater than 100.4) - heavy vaginal bleeding (soaking through 1 pad in less than 2 hours or passing clots that are egg sized) - vaginal discharge (malodorous and/or purulent) - severe headaches, leg tenderness/edema, or any other symptoms that warrant immediate medical attention. depression/blues - Normal to feel anxious/overwhelmed for first 2 weeks - Talk to your doctor if: anxiety lasts over 2 weeks, trouble bonding with baby, withdrawing from other family members, thoughts of harming yourself or others Reva Glover DO [facility] [phone] *Nothing in the Vagina for 6 weeks* *No strenuous activity* *No heavy lifting* *No tub baths until okay's by MD* Patient Instructions: Depression, Labor and Delivery, Vaginal , Hemorrhage, DI for Pre-eclampsia Print Language: Guamanian Providers Primary Care Provider: Skinny Rivas Admit Provider: Suzy Patel Attending Provider: Suzy Patel
[2025-04-20] MEDS: MEASLES,MUMPS,RUBELLA VACCINE VIAL 0.5 ML SUBCUT (11:13)
== END 2025-04-20 11:36 | disposition home or self-care (01) | DRG 807 ==
PROVIDERS: Obstetrics & Gynecology; Admitting Provider Obstetrics & Gynecology; PCP Family Medicine; Visit Provider Obstetrics & Gynecology
DX: O99.02 Anemia complicating childbirth (principal); Z37.0 Single live birth; Z3A.39 39 weeks gestation of pregnancy; D50.9 Iron deficiency anemia, unspecified; O70.1 Second degree perineal laceration during delivery; O99.03 Anemia complicating the puerperium; Z88.1 Allergy status to other antibiotic agents; Z79.899 Other long term (current) drug therapy; Z23 Encounter for immunization
CPT/HCPCS: 36415; 51702; 59025; 81001; 85025; 86592; 86850; 90707; 94761; J2003; J2405; J2795; J3010; J7120